=== PATIENT | male | born 1995 | race Caucasian/White ===

== ENCOUNTER → 2016-11-15 | Outpatient (CLI) | payer OTHER ==
[~2016-11-15] MED LIST: AMIT25TA PO; AMIT50TA PO; ATIV1TAB7 PO; BENT20TA PO; CARA1TAB2 PO; CO-E50CA PO; DEPA250C PO; DEPA250T2 PO; DICY20TA11 PO; DOXE25CA PO; IMIT6INJ SC; LORA1TAB12 PO; MAXA10TA15 PO; OMEP40CA2 PO; ONDA1TAB15 PO; ONDA4TAB6 PO; OXYC1TAB16 PO; PANT40TA2 PO; PARO20TA2 PO; PAXI20TA3 PO; PROM125TA PO; PROM25TA PR; PROTPAK PO; SERT-141 PO; SUCR1TA PO; SUCR1TAB56 PO; TOPI25TA5 PO; TYLE325T5 PO; ZOFR4TAB3 PO; ZONI50CA PO
--- NOTE | 2016-11-15 17:14 | REP ---
Soft-tissue ultrasound left forearm, nonvascular: History: Puncture wound. Evaluate for possible retained IV catheter. Foreign body. History of an IV at this site approximately 1 month ago in the left anterior forearm. Findings: Scanning at this site demonstrates a partially thrombosed segment of a superficial vein. This measures 19 mm in length by 2 mm in thickness. No abnormal fluid collection is seen. There is no evidence of retained intravenous catheter or other foreign body. Study is otherwise unremarkable. No other venous thrombosis is seen. Impression: There is a small cord of partially thrombosed superficial vein at the previous IV site in the ventral subcutaneous space. No evidence of retained catheter fragment or other foreign body seen sonographically. Signed by Isacc Blood MD 11/16/2016 08:15 A
== END ==
LOC: M RAD 12:39
PROVIDERS: ATTEND Physician Assistant
DX: S51.842S Puncture wound with foreign body of left forearm, sequela (principal); I82.612 Acute embolism and thrombosis of superficial veins of left upper extremity

== ENCOUNTER 2016-11-18 06:58 | Inpatient (IN) | payer OTHER ==
[~2016-11-18] VITALS: Ht 180.3 cm; Wt 71.4 kg
[~2016-11-18 06:58] MED LIST changes: -ONDA1TAB15 PO; -PAXI20TA3 PO; -SUCR1TAB56 PO
[2016-11-18] MEDS ORDERED: ONDANSETRON 4MG/2ML VIAL (J2405) As Ordered ONE (07:44)
[2016-11-18] MEDS ORDERED: MORPHINE 4 MG/ML 1ML SYRINGE As Ordered ONE ×3 (07:44→12:29)
[2016-11-18 07:53] LABS: BASO # 0.1 K/mm3 (0.0-0.2); EOS # 0.1 K/mm3 (0.0-0.50); EOS % 1.9 % (0.0-3.0); LARGE UNSTAINED CELL # 0.1 K/mm3 (0.0-0.4); LARGE UNSTAINED CELL % 1.5 % (0.0-4.0); LYMPH # 0.9 K/mm3 (1.5-6.5); LYMPH % 15.8 % (24.0-44.0); MEAN CORPUSCULAR HEMOGLOBIN 30.9 pg (27.0-33.0); MEAN CORPUSCULAR HGB CONC 34.1 g/dl (32.0-36.5); MEAN CORPUSCULAR VOLUME 90.6 fl (80.0-96.0); MONO # 0.3 K/mm3 (0.0-0.8); MONO % 5.6 % (0.0-5.0); NEUTROPHILS % 74.2 % (36.0-66.0); PLATELET COUNT, AUTOMATED 286 k/mm3 (150-450); RED CELL DISTRIBUTION WIDTH 13.1 % (11.5-14.5); WHITE BLOOD COUNT 5.4 K/mm3 (4.0-10.0)
[2016-11-18 08:17] LABS: ALBUMIN 4.4 GM/DL (3.2-5.2); ALBUMIN/GLOBULIN RATIO 1.22 (1.00-1.93); ALKALINE PHOSPHATASE 109 U/L (45-117); ALT/SGPT 24 U/L (12-78); ANION GAP 7 MEQ/L (8-16); AST/SGOT 10 U/L (15-37); BILIRUBIN,DIRECT 0.2 MG/DL (0.0-0.2); BILIRUBIN,TOTAL 0.8 MG/DL (0.2-1.0); BLOOD UREA NITROGEN 12 MG/DL (7-18); CALCIUM LEVEL 9.3 MG/DL (8.5-10.1); CARBON DIOXIDE LEVEL 29 MEQ/L (21-32); CHLORIDE LEVEL 104 MEQ/L (98-107); CREATININE FOR GFR 0.95 MG/DL (0.70-1.30); GLOMERULAR FILTRATION RATE > 60.0 (>60); GLUCOSE, FASTING 100 MG/DL (70-105); SODIUM LEVEL 140 MEQ/L (136-145)
[2016-11-18] MEDS ORDERED: GASTROGRAFIN SOLUTION 30ML (Q9963) As Ordered ONE (08:33)
--- NOTE | 2016-11-18 08:36 | REP ---
Portable chest x-ray: Single view. History: Chest pain. Comparison chest x-ray October 17, 2016. Findings: The lungs are symmetrically aerated and clear. Pleural angles are sharp. Heart size is normal. Pulmonary vasculature is not increased. Impression: Negative portable chest x-ray. Signed by Isacc Blood MD 11/18/2016 02:35 P
[2016-11-18] MEDS ORDERED: ISOVUE-370 76% 100ML VIAL (Q9967) As Ordered ONE (09:50)
[2016-11-18] MEDS ORDERED: ACETAMINOPHEN 325 MG TAB As Ordered ONE (10:23)
[2016-11-18] MEDS ORDERED: ACETAMINOPHEN 650 MG SUPP PR PRN (12:30)
[2016-11-18] MEDS ORDERED: PAXI20TA3 PO (13:06)
[2016-11-18] MEDS ORDERED: PANT40TA2 PO (13:06)
[2016-11-18] MEDS ORDERED: SUCR1TAB56 PO (13:06)
--- NOTE | 2016-11-18 14:15 | HPEPDOC ---
General Date of Admission Nov 18, 2016 at 12:28 Primary Care Physician: Mehran Reyna M.D. Attending Physician: IVAN NAGY MD Chief Complaint The patient is a 21-year-old male admitted with a reason for visit of Intractable Vomiting. History of Present Illness Patient of Dr. Reyna, who presents again with intractable nausea and vomiting. He reports vomiting, and inability to eat over the past week. He states that his symptoms to be worse at night. Mother is frustrated that they went to the [facility] to try to sort things out, and she states that they didn't do much of a workup. She is concerned that her son may have a mitochondrial disorder, as someone else in her neighborhood was diagnosed with this. She still thinks that this was related to toxic dumping by the air brake plant nearby. Patient denies fevers, chills, sweats, recent illness. Denies toxic ingestion. Patient also reports frequent headaches, which are bitemporal in nature. He states the only thing that has helped in the past is "Oxy, the 10 mg tablets, not the smaller ones. Those don't work." His headaches and abdominal pain had previously been treated with triptans, and amitriptyline. He states that neither of these were effective. Home Medications Scheduled Pantoprazole Sodium (Pantoprazole Sodium) 40 Mg Tab 40 MG PO BID (Reported) Paroxetine Hydrochloride (Paxil) 20 Mg Tab 20 MG PO QHS (Reported) Sucralfate (Sucralfate) 1 Gm Tab 1 GM PO TID (Reported) Scheduled PRN Lorazepam (Ativan) 1 Mg Tab 1 MG PO Q6HP PRN PRN ANXIETY/AGITATION (Reported) Promethazine HCl (Promethazine HCl) 25 Mg Tab 25 MG CA Q6HP PRN PRN NAUSEA ( Reported) Allergies Coded Allergies: Metoclopramide (Verified Adverse Reaction, Intermediate, AKATHISIA/ AGITATION, 08/29/16) Past Medical History Medical History 1. cyclic vomiting; frequent admissions with extensive workup 2. anxiety, depression 3. marijuana use Surgical History None Family History Significant Family History: No pertinent family hx Social History * Smoker: non-smoker Alcohol: denies Drugs: marijuana Recent Travel/Sick Contacts: Denies: Recent sick contacts, Recent travel Psychosocial History: Anxiety, Decreased mood, Depression Review of Symptoms Constitutional: Denies: Chills, Fever, Malaise, Night Sweats Eyes: Denies: Vision change ENT: Reports: Head Aches, Denies: Ear Pain, Sinus Congestion, Sore Throat Skin: Denies: Rash Pulmonary: Denies: Cough, Dyspnea Cardiovascular: Denies: Chest Pain, Lt Headedness, Palpitations Gastrointestinal: Reports: Abdominal Pain, Nausea, Vomiting, Denies: Constipation, Diarrhea Genitourinary: Denies: Dysuria, Frequency, Incontinence Hematologic: Denies: Bleeding Excessively, Bruising Neurological: Denies: Numbness, Weakness Psych: Reports: Anxiety, Depression Other systems 10 pt ROS otherwise negative Physical Examination General Exam: Positive: Alert, Cooperative, No Acute Distress Eye Exam: Positive: Conjunctiva & lids normal, EOMI, PERRLA, Negative: Sclera icteric ENT Exam: Positive: Atraumatic, Mucous membr. moist/pink, Pharynx Normal Neck Exam: Positive: Supple, Negative: Lymphadenopathy, thyromegaly Chest Exam: Positive: Clear to auscultation, Normal air movement, Negative: Rales, Rhonchi, Wheezing Heart Exam: Positive: Normal S1, Normal S2, Rate Normal, Negative: Murmurs, Rubs Abdomen Exam: Positive: Normal bowel sounds, Other (generalized tenderness without guarding or rebound), Soft, Negative: Hepatospenomegaly, Mass Extremity Exam: Negative: Cyanosis, Edema Skin Exam: Positive: Nl turgor and temperature, Negative: Rash Psych Exam: Positive: Mental status NL Vital Signs T 97.6, BP 134/74, P 80, RR 18, SAT 100% on RA Laboratory Data Labs 24H Laboratory Tests 2 11/18/16 07:41: Aspartate Amino Transf (AST/SGOT) 10L, Alanine Aminotransferase (ALT/SGPT) 24, Alkaline Phosphatase 109, Total Bilirubin 0.8, Direct Bilirubin 0.2, Albumin 4.4 , Albumin/Globulin Ratio 1.22, Anion Gap 7L, White Blood Count 5.4, Red Blood Count 5.22, Hemoglobin 16.1, Hematocrit 47.2, Mean Corpuscular Volume 90.6, Mean Corpuscular Hemoglobin 30.9, Mean Corpuscular Hemoglobin Concent 34.1, Red Cell Distribution Width 13.1, Platelet Count 286, Neutrophils (%) (Auto) 74.2H, Lymphocytes (%) (Auto) 15.8L, Monocytes (%) (Auto) 5.6H, Eosinophils (%) (Auto) 1.9, Basophils (%) (Auto) 1.0, Neutrophils # (Auto) 4.0, Lymphocytes # (Auto) 0.9L, Monocytes # (Auto) 0.3, Eosinophils # (Auto) 0.1, Basophils # (Auto) 0.1, Calcium Level 9.3, Glomerular Filtration Rate > 60.0, Large Unclassified Cells # 0.1, Large Unclassified Cells % 1.5, Lipase 104, Total Protein 8.0 CBC/BMP Laboratory Tests 11/18/16 07:41 Red Blood Count 5.22, Mean Corpuscular Volume 90.6, Mean Corpuscular Hemoglobin 30.9, Mean Corpuscular Hemoglobin Concent 34.1, Red Cell Distribution Width 13.1 , Neutrophils (%) (Auto) 74.2 H, Lymphocytes (%) (Auto) 15.8 L, Monocytes (%) ( Auto) 5.6 H, Eosinophils (%) (Auto) 1.9, Basophils (%) (Auto) 1.0, Neutrophils # (Auto) 4.0, Lymphocytes # (Auto) 0.9 L, Monocytes # (Auto) 0.3, Eosinophils # (Auto) 0.1, Basophils # (Auto) 0.1 (1) Intractable vomiting Permanent Comment: 03/21/16 EGD/[id number] with normal random biopsies of esophagus, stomach, duodenum (mildly increased lymphocytes but preserved architecture), ileum, colon Last Edited By: Mehran Reyna MD on May 12, 2016 16 :11 Status: Acute Assessment & Plan: Patient is a frequent admission. He has had extensive workup in the past, including lead, arsenic, mercury, porphyria, hepatitis, and H. pylori. He's been diagnosed by Dr. Mckeon with abdominal migraines. Recent EGD with Dr. Reece. He has also had workup demonstrating negative HIDA, negative gastric emptying study, negative for intracranial mass. In addition to these workups, he has had numerous other workups for other things. Given his history, I am concerned that he has a somatization disorder. Although his mother would like to look into a mitochondrial disorder or other toxicity, I explained that these are very unlikely, especially as he has not had problems until recently. Mother reports child had motion sickness and getting very nervous and vomiting after seeing the height of a roller coaster they were about to ride, but I tried to re-assure her that these are not indicators of serious disease. She would like to have me look into possible toxic exposure to materials near the local "air-brake dump site." No other family members report sx. I indicated that I would research this concern. - titrate paxil - avoid narcotics - IV fluids - PRN GI cocktail (2) Headache Status: Acute Assessment & Plan: Likely tension headache as pt has ARNULFO temporal pain. Does not seem c/w migraine headache. C/O photophobia but does not react during ophthal exam. Normal fundoscopic exam. - tylenol PRN - Do no offer narcotics (3) GERD (gastroesophageal reflux disease) Permanent Comment: Last Edited By: Mehran Reyna MD on May 12, 2016 16:11 Status: Chronic Assessment & Plan: IV PPI until pt able to take PO Plan / VTE VTE Prophylaxis Ordered?: Yes VTE Exclusion Pharmacological: At Low Risk for VTE Plan Plan Plan for D/C with frequent followup to PCP when able to tolerate diet IVAN NAGY MD Nov 18, 2016 14:15
[2016-11-18 14:45] VITALS: BP_SYST 148; BP_SYST 152; BP_DIAS 102; BP_DIAS 92
--- NOTE | 2016-11-18 14:46 | EDDOCDS ---
Nurse's Notes [facility] Name: Mynor Chambers Age: 21 yrs Sex: Male : 1995 Arrival Date: 11/18/2016 Time: 06:58 Bed 5 Private MD: Diagnosis: Epigastric pain;Nausea and vomiting Presentation: 11/18 07:04 Presenting complaint: Patient states: Vomiting since Monday, generalized abdominal, dwg chest and head pain. Adult Sepsis Screening: The patient does not have new or worsening altered mentation. Patient's respiratory rate is less than 22. Systolic blood pressure is greater than 100. Patient has a qSOFA score of 0- Negative Sepsis Screen. Suicide/Homicide risk assessment- the patient denies having any suicidal and/or homicidal ideations and does not present with any other emotional, behavioral or mental health complaints. Status: Patient is not a client services manager or dependent. Transition of care: patient was not received from another setting of care. 07:04 Acuity: DINAH Level 3 dwg 07:04 Method Of Arrival: Wheelchair [facility] Triage Assessment: 07:09 General: Appears in no apparent distress, uncomfortable. Pain: Pain currently is 10 out dwg of 10 on a pain scale. HIV screening NA for this visit Offered previously. Historical: - Allergies: no known allergies; - Home Meds: 1. sucralfate 1 gram Oral tab three times a day (Last dose: 11/17/2016 20:00) 2. Paxil 20 mg Oral tab 1 tab once daily (Last dose: 11/17/2016 20:00) 3. pantoprazole 40 mg oral TbEC 1 tab 2 times per day (Last dose: 11/17/2016 20:00) - PMHx: Anxiety; Cycling Vomiting Syndrome; GERD; ulcers; ''Rupture esophagus''; - PSHx: Fractured right hip; - Social history: Smoking status: Patient states was never smoker of tobacco. No barriers to communication noted, The patient speaks fluent Chinese. - Family history: Not pertinent. - : The pt / caregiver states he / she is not on anticoagulants. Home medication list is obtained from the patient. - Exposure Risk Screening:: None identified. Screenin:09 Screening information is obtained from the patient. Fall risk: No risks identified. srm Assistance ADL's: requires no assistance with activities of daily living. Abuse/DV Screen: The patient / caregiver reports he/she is: not in a situation that causes fear, pain or injury. Nutritional screening: No deficits noted. Advance Directives: There is no active DNR order. home support is adequate. Assessment: 07:20 General: mom states pt is having trouble breathing. pt crying on stretcher. color pink. srm hyperventilating chest clear all redding. BS+ all redding. soft. dr archuleta at bedside. 07:54 Pain: Pain currently is 10 out of 10 on a pain scale. GI: Abdomen is non- distended srm Bowel sounds present X 4 quads. Abd is soft X 4 quads Abd is tender to palpation X 4 quads. Derm: No deficits noted. 08:29 Pain: Pain currently is 9 out of 10 on a pain scale. Quality of pain is described as srm burning. 09:13 General: pt states his headache is worse than stomache at this time. pt is tolerating srm oral contrast. 10:10 Reassessment: Patient appears in no apparent distress at this time. requesting more srm pain meds. to CT at this time. 11:23 General: Appears resting on stretcher with eyes closed. arouses easily. vs stable. srm awaiting MD jessica zuniga. voices no c/o at this time. mom at bedside. 12:22 General: PTresting on stretcher talking with visitors. states headache is 10/10 and srm stomache is 7/10. requesting something more for pain. dr archuleta aware. vs stable . 12:38 General: Appears resting on stretcher laughing with visitors. BS+ c/o pain when srm auscultate abdomen. 14:08 General: Appears in no apparent distress, Behavior is appropriate for age, cooperative. srm Neurological: No deficits noted. EENT: No deficits noted. Cardiovascular: Rhythm is sinus rhythm. Respiratory: No deficits noted. GI: Abdomen is non- distended Bowel sounds present X 4 quads. Abd is soft X 4 quads Abd is tender to palpation X 4 quads. : No deficits noted. 14:34 Reassessment: Patient appears in no apparent distress at this time. srm Vital Signs: 07:09 BP 132 / 76; Pulse 96; Resp 20; Temp 98.5(T); Pulse Ox 98% on R/A; Weight 70.76 kg; dwg Height 5 ft. 11 in. (180.34 cm); Pain 10/10; 08:20 BP 124 / 69 (auto/); srm 08:21 Pulse 80 MON; Pulse Ox 99% ; srm 08:28 BP 124 / 69; Pulse 91; Resp 18; Pulse Ox 98% on R/A; Pain 9/10; srm 08:50 BP 126 / 83 (auto/); srm 08:51 Pulse 86 MON; Pulse Ox 99% ; srm 09:07 BP 126 / 83; Pulse 75; Resp 18; Pulse Ox 100% on R/A; srm 09:20 BP 134 / 79 (auto/); srm 09:21 Pulse 74 MON; Pulse Ox 99% ; srm 09:50 BP 130 / 73 (auto/); srm 09:51 Pulse 76 MON; Pulse Ox 99% ; srm 10:10 Pulse 76 MON; Resp 18; Pulse Ox 99% ; srm 10:19 BP 136 / 80 (auto/); srm 10:20 BP 134 / 78 (auto/); srm 10:21 Pulse 70 MON; Pulse Ox 99% ; srm 10:50 BP 123 / 67 (auto/); srm 10:51 Pulse 68 MON; Pulse Ox 97% ; srm 11:20 BP 121 / 68 (auto/); srm 11:21 Pulse 62 MON; Resp 18; Pulse Ox 96% ; srm 11:50 BP 125 / 75 (auto/); srm 11:51 Pulse 70 MON; Pulse Ox 99% ; srm 12:20 BP 130 / 74 (auto/); srm 12:21 Pulse 80 MON; Resp 18; Temp 97.6(O); Pulse Ox 100% ; srm 12:50 BP 136 / 74 (auto/); srm 12:51 Pulse 78 MON; Pulse Ox 100% ; srm 13:19 Pulse 88 MON; Pulse Ox 98% ; srm 13:20 BP 134 / 79 (auto/); srm 13:50 BP 144 / 85 (auto/); srm 13:51 Pulse 84 MON; Pulse Ox 99% ; srm 14:06 BP 134 / 74 (auto/); srm 14:07 Pulse 70 MON; Resp 18; Temp 99.3(TE); Pulse Ox 98% on R/A; srm 07:09 Body Mass Index 21.76 (70.76 kg, 180.34 cm) dwg Vitals: 07:09 Log In Time: November 18, 2016 at 07:00. [facility] ED Course: 06:59 Patient visited by Purvi Leonardo, Reg. hs2 06:59 Patient moved to Waiting hs2 07:07 Triage Initiated dwg 07:11 Patient moved to 5 dwg 07:18 Reynaldo Archuleta MD is Attending Physician. br1 07:26 Patient visited by Reynaldo Archuleta MD. br1 07:43 The patient / caregiver is instructed regarding the plan of care and ED course. Patient srm has correct armband on for positive identification. Placed in gown. Bed in low position. Call light in reach. Side rails up X 1. compliance monitor on. Pulse ox on. NIBP on. 07:43 Inserted saline lock: 20 gauge in right antecubital area and blood collected. srm 07:54 Patient visited by Radha Campos RN. srm 07:56 EKG done. (by ED staff). Reviewed by Reynaldo Archuleta MD. rn1 08:29 Patient visited by Radha Campos RN. srm 08:36 [facility] Payment Agreement was scanned into [employer] and attached to record. mm15 09:00 Chest, 1 View Returned. EDMS 09:07 Patient visited by Radha Campos RN. srm 09:13 Patient visited by Radha Campos RN. srm 10:11 Patient visited by Radha Campos RN. srm 10:[address] srm 10:21 Patient moved to 5 srm 10:24 Patient visited by Radha Campos RN. srm 10:36 Patient visited by Romelia Del Rio PCA. jb5 10:36 Warm blanket given. Pillow given. jb5 11:26 Patient visited by Radha Campos RN. srm 11:49 Patient visited by Reynaldo Archuleta MD. br1 12:24 Patient visited by Radha Campos RN. srm 12:38 Patient visited by Radha Campos RN. srm 12:46 Tirso Freeman MD is Hospitalizing Provider. br1 14:10 Patient visited by Radha Campos RN. srm 14:34 No procedures done that require assistance. srm Administered Medications: 07:48 Drug: Ondansetron 4 mg [ondansetron HCl 2 mg/mL intravenous solution (2 mL)] Route: srm IVP; Site: right antecubital; 08:29 Follow up: Response: Nausea is resolved srm 07:48 Drug: NS 0.9% 1000 ml [sodium chloride 0.9 % intravenous solution] Route: IV; Rate: 150 srm mL/hr; Site: right antecubital; 12:24 Follow up: IV Status: Completed infusion srm 07:49 Drug: morphine 4 mg [morphine 4 mg/mL intravenous cartridge (1 mL)] Route: IVP; Site: [facility] right antecubital; 08:28 Follow up: BP 124 / 69; Pulse 91 bpm; Resp 18 bpm; Pulse Ox 98% RA; Pain 9/10 Adult srm 08:26 Drug: morphine 4 mg [morphine 4 mg/mL intravenous cartridge (1 mL)] Route: IVP; Site: [facility] right antecubital; 09:07 Follow up: BP 126 / 83; Pulse 75 bpm; Resp 18 bpm; Pulse Ox 100% RA; headache 8/10 srm stomach pain 5/10 08:35 Drug: Diatrizoate Meglumine & Sodium 10 ml [diatrizoate meglumine and diat.sodium 66 srm %-10 % oral solution (10 mL)] Route: PO; 09:07 Drug: Diatrizoate Meglumine & Sodium 10 ml [diatrizoate meglumine and diat.sodium 66 srm %-10 % oral solution (10 mL)] Route: PO; 10:24 Drug: Acetaminophen 650 mg [acetaminophen 325 mg tablet (2 tabs)] Route: PO; srm 12:34 Drug: morphine 4 mg [morphine 4 mg/mL intravenous cartridge (1 mL)] Route: IVP; Site: [facility] right antecubital; Intake: 12:21 IV: 1000.00ml (NS); Total: 1000.00ml. srm Output: 12:21 Urine: 600.00ml (Voided); Total: 600.00ml. srm Order Results: Lab Order: CBC with Diff; SPEC'M 11/18/16 07:41 Test: WHITE BLOOD COUNT; Value: 5.4; Range: 4.0-10.0; Units: K/mm3; Status: F Test: RED BLOOD COUNT; Value: 5.22; Range: 4.30-6.10; Units: M/mm3; Status: F Test: HEMOGLOBIN; Value: 16.1; Range: 14.0-18.0; Units: g/dl; Status: F Test: HEMATOCRIT; Value: 47.2; Range: 42.0-52.0; Units: %; Status: F Test: MEAN CORPUSCULAR VOLUME; Value: 90.6; Range: 80.0-96.0; Units: fl; Status: F Test: MEAN CORPUSCULAR HEMOGLOBIN; Value: 30.9; Range: 27.0-33.0; Units: pg; Status: F Test: MEAN CORPUSCULAR HGB CONC; Value: 34.1; Range: 32.0-36.5; Units: g/dl; Status: F Test: RED CELL DISTRIBUTION WIDTH; Value: 13.1; Range: 11.5-14.5; Units: %; Status: F Test: PLATELET COUNT, AUTOMATED; Value: 286; Range: 150-450; Units: k/mm3; Status: F Test: NEUTROPHILS %; Value: 74.2; Range: 36.0-66.0; Abnormal: Above high normal; Units: %; Status: F Test: LYMPH %; Value: 15.8; Range: 24.0-44.0; Abnormal: Below low normal; Units: %; Status: F Test: MONO %; Value: 5.6; Range: 0.0-5.0; Abnormal: Above high normal; Units: %; Status: F Test: EOS %; Value: 1.9; Range: 0.0-3.0; Units: %; Status: F Test: BASO %; Value: 1.0; Range: 0.0-1.0; Units: %; Status: F Test: LARGE UNSTAINED CELL %; Value: 1.5; Range: 0.0-4.0; Units: %; Status: F Test: NEUTROPHILS #; Value: 4.0; Range: 1.8-7.7; Units: K/mm3; Status: F Test: LYMPH #; Value: 0.9; Range: 1.5-6.5; Abnormal: Below low normal; Units: K/mm3; Status: F Test: MONO #; Value: 0.3; Range: 0.0-0.8; Units: K/mm3; Status: F Test: EOS #; Value: 0.1; Range: 0.0-0.50; Units: K/mm3; Status: F Test: BASO #; Value: 0.1; Range: 0.0-0.2; Units: K/mm3; Status: F Test: LARGE UNSTAINED CELL #; Value: 0.1; Range: 0.0-0.4; Units: K/mm3; Status: F Lab Order: BMP; SPEC'M 11/18/16 07:41 Test: GLUCOSE, FASTING; Value: 100; Range: 70-105; Units: MG/DL; Status: F Test: BLOOD UREA NITROGEN; Value: 12; Range: 7-18; Units: MG/DL; Status: F Test: CREATININE FOR GFR; Value: 0.95; Range: 0.70-1.30; Units: MG/DL; Status: F Test: GLOMERULAR FILTRATION RATE; Value: > 60.0; Range: >60; Status: F Test: SODIUM LEVEL; Value: 140; Range: 136-145; Units: MEQ/L; Status: F Test: POTASSIUM SERUM; Value: 4.0; Range: 3.5-5.1; Units: MEQ/L; Status: F Test: CHLORIDE LEVEL; Value: 104; Range: 98-107; Units: MEQ/L; Status: F Test: CARBON DIOXIDE LEVEL; Value: 29; Range: 21-32; Units: MEQ/L; Status: F Test: ANION GAP; Value: 7; Range: 8-16; Abnormal: Below low normal; Units: MEQ/L; Status: F Test: CALCIUM LEVEL; Value: 9.3; Range: 8.5-10.1; Units: MG/DL; Status: F Test Note: ; Units are mL/min/1.73 m2 Chronic Kidney Disease Staging per NKF: Stage I & II GFR >=60 Normal to Mildly Decreased Stage III GFR 30-59 Moderately Decreased Stage IV GFR 15-29 Severely Decreased Stage V GFR <15 Very Little GFR Left ESRD GFR <15 on ADMISSIONS ASSISTANT Lab Order: Liver Profile; SPEC'M 11/18/16 07:41 Test: AST/SGOT; Value: 10; Range: 15-37; Abnormal: Below low normal; Units: U/L; Status: F Test: ALT/SGPT; Value: 24; Range: 12-78; Units: U/L; Status: F Test: ALKALINE PHOSPHATASE; Value: 109; Range: 45-117; Units: U/L; Status: F Test: BILIRUBIN,TOTAL; Value: 0.8; Range: 0.2-1.0; Units: MG/DL; Status: F Test: BILIRUBIN,DIRECT; Value: 0.2; Range: 0.0-0.2; Units: MG/DL; Status: F Test: TOTAL PROTEIN; Value: 8.0; Range: 6.4-8.2; Units: GM/DL; Status: F Test: ALBUMIN; Value: 4.4; Range: 3.2-5.2; Units: GM/DL; Status: F Test: ALBUMIN/GLOBULIN RATIO; Value: 1.22; Range: 1.00-1.93; Status: F Lab Order: Lipase; SPEC'M 11/18/16 07:41 Test: LIPASE; Value: 104; Range: 73-393; Units: U/L; Status: F Radiology Order: Chest, 1 View Test: Chest, 1 View REASON FOR EXAMINATION: Chest Pain; Portable chest x-ray: Single view.; ; History: Chest pain.; ; Comparison chest x-ray October 17, 2016.; ; Findings: The lungs are symmetrically aerated and clear. Pleural angles are; sharp. Heart size is normal. Pulmonary vasculature is not increased.; ; Impression:; ; Negative portable chest x-ray.; ; ; ; Unreviewed; Outcome: 12:46 Decision to Hospitalize by Provider. br1 14:34 Discharge Assessment: Patient awake, alert and oriented x 3. No cognitive and/or srm functional deficits noted. Patient verbalized understanding of disposition instructions. patient administered narcotics - yes. Patient was admitted to the hospital or transferred to another facility. The following High Risk Discharge criteria are identified: None. Admitted to Med/Surg accompanied by tech, via stretcher, with chart. Condition: good Condition: stable. CT Study completed. Property :Personal belongings accompany Pt. 14:45 Patient left the ED. srm Signatures: Dispatcher [employer] EDToi Carrillo RN RN dwg Michelson, Staci, RN RN srm Romelia Del Rio, NETWORK SUPPORT NETWORK SUPPORT jb5 Reynaldo Archuleta MD MD br1 Lisandro Jane mm15 Red Miller rn1 Purvi Leonardo, Reg Reg hs2 MTDD
--- NOTE | 2016-11-18 14:46 | EDDOCDS ---
Physician Documentation [facility] Name: Mynor Chambers Age: 21 yrs Sex: Male : 1995 Arrival Date: 11/18/2016 Time: 06:58 Bed 5 Private MD: Disposition: 11/18/16 12:46 Hospitalization ordered by Tirso Freeman for Inpatient Admission. Preliminary diagnosis are Epigastric pain, Nausea and vomiting. - Bed requested for 4 [place]. - Status is Inpatient Admission. srm - Condition is Stable. - Problem is new. - Symptoms are unchanged. Historical: - Allergies: no known allergies; - Home Meds: 1. sucralfate 1 gram Oral tab three times a day (Last dose: 11/17/2016 20:00) 2. Paxil 20 mg Oral tab 1 tab once daily (Last dose: 11/17/2016 20:00) 3. pantoprazole 40 mg oral TbEC 1 tab 2 times per day (Last dose: 11/17/2016 20:00) - PMHx: Anxiety; Cycling Vomiting Syndrome; GERD; ulcers; ''Rupture esophagus''; - PSHx: Fractured right hip; - Social history: Smoking status: Patient states was never smoker of tobacco. No barriers to communication noted, The patient speaks fluent [place]. - Family history: Not pertinent. - : The pt / caregiver states he / she is not on anticoagulants. Home medication list is obtained from the patient. - Exposure Risk Screening:: None identified. Vital Signs: 11/18 07:09 BP 132 / 76; Pulse 96; Resp 20; Temp 98.5(T); Pulse Ox 98% on R/A; Weight 70.76 kg / dwg 156 lbs; Height 5 ft. 11 in. (180.34 cm); Pain 10/10; 08:20 BP 124 / 69 (auto/); srm 08:21 Pulse 80 MON; Pulse Ox 99% ; srm 08:28 BP 124 / 69; Pulse 91; Resp 18; Pulse Ox 98% on R/A; Pain 9/10; srm 08:50 BP 126 / 83 (auto/); srm 08:51 Pulse 86 MON; Pulse Ox 99% ; srm 09:07 BP 126 / 83; Pulse 75; Resp 18; Pulse Ox 100% on R/A; srm 09:20 BP 134 / 79 (auto/); srm 09:21 Pulse 74 MON; Pulse Ox 99% ; srm 09:50 BP 130 / 73 (auto/); srm 09:51 Pulse 76 MON; Pulse Ox 99% ; srm 10:10 Pulse 76 MON; Resp 18; Pulse Ox 99% ; srm 10:19 BP 136 / 80 (auto/); srm 10:20 BP 134 / 78 (auto/); srm 10:21 Pulse 70 MON; Pulse Ox 99% ; srm 10:50 BP 123 / 67 (auto/); srm 10:51 Pulse 68 MON; Pulse Ox 97% ; srm 11:20 BP 121 / 68 (auto/); srm 11:21 Pulse 62 MON; Resp 18; Pulse Ox 96% ; srm 11:50 BP 125 / 75 (auto/); srm 11:51 Pulse 70 MON; Pulse Ox 99% ; srm 12:20 BP 130 / 74 (auto/); srm 12:21 Pulse 80 MON; Resp 18; Temp 97.6(O); Pulse Ox 100% ; srm 12:50 BP 136 / 74 (auto/); srm 12:51 Pulse 78 MON; Pulse Ox 100% ; srm 13:19 Pulse 88 MON; Pulse Ox 98% ; srm 13:20 BP 134 / 79 (auto/); srm 13:50 BP 144 / 85 (auto/); srm 13:51 Pulse 84 MON; Pulse Ox 99% ; srm 14:06 BP 134 / 74 (auto/); srm 14:07 Pulse 70 MON; Resp 18; Temp 99.3(TE); Pulse Ox 98% on R/A; srm 07:09 Body Mass Index 21.76 (70.76 kg, 180.34 cm) dwg MDM: 07:27 IV Saline Lock ordered. br1 07:27 Cardiac Rehabilitation Specialist/Pulse Ox/q 30 min VS ordered. br1 07:27 CBC with Diff Ordered. EDMS 07:27 BMP Ordered. EDMS 07:27 Liver Profile Ordered. EDMS 07:27 Lipase Ordered. EDMS 07:28 morphine 4 mg IVP once ordered. br1 07:28 Ondansetron 4 mg IVP once ordered. br1 07:28 NS 0.9% 1000 ml IV at 150 mL/hr continuous ordered. br1 07:28 Chest, 1 View Ordered. EDMS 07:28 Undress patient ordered. br1 07:28 ECG WITH READING ER PHYS+CARDIAG ordered. EDMS 07:32 GASTROINTESTINAL (GI) PANEL Ordered. EDMS 07:43 CT Chest Angio R/O PE Ordered. EDMS 07:43 CT ABD & PELVIS: IV and Oral Contrast Ordered. EDMS 07:56 Financial registration complete. mm15 08:24 morphine 4 mg IVP once ordered. br1 08:24 CBC with Diff Reviewed. br1 08:24 BMP Reviewed. br1 08:24 Liver Profile Reviewed. br1 08:24 Lipase Reviewed. br1 08:36 [facility] Payment Agreement was scanned into [employer] and attached to record. mm15 08:37 Diatrizoate Meglumine & Sodium Liquid 10 ml PO once; mix in 290cc of water at 0830 srm ordered. 08:37 Diatrizoate Meglumine & Sodium Liquid 10 ml PO once; mix in 290cc of water at 0900 srm ordered. 10:21 Acetaminophen Tablet 650 mg PO once; prn headache ordered. br1 12:28 morphine 4 mg IVP once ordered. br1 12:33 Admission / Observation Status ordered. EDMS 12:33 REGULAR DIET ordered. EDMS 12:48 BED REQUEST+ADM ordered. EDMS Administered Medications: 07:48 Drug: Ondansetron 4 mg [ondansetron HCl 2 mg/mL intravenous solution (2 mL)] Route: srm IVP; Site: right antecubital; 08:29 Follow up: Response: Nausea is resolved srm 07:48 Drug: NS 0.9% 1000 ml [sodium chloride 0.9 % intravenous solution] Route: IV; Rate: 150 srm mL/hr; Site: right antecubital; 12:24 Follow up: IV Status: Completed infusion srm 07:49 Drug: morphine 4 mg [morphine 4 mg/mL intravenous cartridge (1 mL)] Route: IVP; Site: [facility] right antecubital; 08:28 Follow up: BP 124 / 69; Pulse 91 bpm; Resp 18 bpm; Pulse Ox 98% RA; Pain 9/10 Adult srm 08:26 Drug: morphine 4 mg [morphine 4 mg/mL intravenous cartridge (1 mL)] Route: IVP; Site: [facility] right antecubital; 09:07 Follow up: BP 126 / 83; Pulse 75 bpm; Resp 18 bpm; Pulse Ox 100% RA; headache 8/10 srm stomach pain 5/10 08:35 Drug: Diatrizoate Meglumine & Sodium 10 ml [diatrizoate meglumine and diat.sodium 66 srm %-10 % oral solution (10 mL)] Route: PO; 09:07 Drug: Diatrizoate Meglumine & Sodium 10 ml [diatrizoate meglumine and diat.sodium 66 srm %-10 % oral solution (10 mL)] Route: PO; 10:24 Drug: Acetaminophen 650 mg [acetaminophen 325 mg tablet (2 tabs)] Route: PO; srm 12:34 Drug: morphine 4 mg [morphine 4 mg/mL intravenous cartridge (1 mL)] Route: IVP; Site: [facility] right antecubital; Signatures: Dispatcher [employer] EDMS Toi Parikh RN RN dwg Michelson, Staci, RN RN [facility] Reynaldo Tovar MD MD br1 Lisandro Jane mm15 Efrain Foster RN RN sa The chart was reviewed and I authenticate all verbal orders and agree with the evaluation and treatment provided.Corrections: (The following items were deleted from the chart) 07:32 07:30 GASTROINTESTINAL (GI) PANEL+RANJANA ordered. EDMS EDMS Attachments: 08:36 [facility] Payment Agreement mm15 MTDD
[2016-11-18] MEDS: NS 1,000 ML IV SCH ×3 (15:14→23:44)
[2016-11-18] MEDS: ONDANSETRON 4 MG TAB (S0181) PO PRN (15:14)
[2016-11-18] MEDS ORDERED: NORCO, ANEXSIA 5/325MG TABLET (HYDROcodone/ACETAMINOPHEN) PO PRN (15:30)
--- NOTE | 2016-11-18 15:36 | REP ---
CTA chest and 20 Indication: Chest pain, shortness of breath; history of cyclical vomiting syndrome history of ruptured esophagus Comparison: CT chest with IV contrast 24 16 Technique: Following dynamic IV contrast administration 100 ml Isovue 370 mg/ml IV, mm contiguous spiral axial sections were then performed through the chest. Findings: The thoracic aorta is without aneurysm or dissection visualized. There is however some motion artifact within the ascending thoracic aorta. The heart is of normal size. There are no pathologically enlarged mediastinal or hilar nodes. There are no visualized pulmonary artery filling defects or findings to suggest pulmonary artery emboli. The lungs are clear bilaterally. There is no evidence of residual or recurrent pneumomediastinum. Impression: No evidence of pulmonary embolus Thoracic aorta without aneurysm or visualized dissection. There is some motion artifact with and streak artifact in the ascending thoracic aorta. Lungs are clear bilaterally Signed by Aurea Sandoval MD 11/18/2016 03:28 P
--- NOTE | 2016-11-18 15:38 | REP ---
CT abdomen pelvis 11/18/2016 Indication: Trauma pain Comparison : CT chest with IV contrast 08/22/2016, chest radiograph 11/18/2016 and 11/17/15 Technique: After drinking two cups of oral contrast, each containing 10 ml gastrographin in 290 ml water, 100 ml Isovue 370 mg/ml IV was subsequently injected. 3 mm spiral axial sections were performed through the abdomen and pelvis. Findings: Lung bases are clear bilaterally. Liver is without focal lesion. Spleen is also normal. Pancreas unremarkable. Gallbladder is generous in size, without wall thickening intraluminal stones or visualized biliary dilatation. The adrenal glands are normal. Kidneys are without hydronephrosis or obstructing ureteral calculi bilaterally. There are no intrarenal masses or cysts. Circumferential mural thickening is seen at gastroesophageal junction. Stomach and small bowel are within normal limits. The appendix is incompletely visualized yet there are no inflammatory changes identified in right lower quadrant. Abdominal aorta is of normal course and caliber. There are no pathologically enlarged retroperitoneal nodes. Bladder is contracted. There is some under distension within the splenic flexure and in the sigmoid colon. There is no free air or ascites. Bones and soft tissues within normal limits. Impression: Mild circumferential mural thickening is noted at gastroesophageal junction. Patient had history of previous ruptured distal esophagus. There is no free air or ascites. No no evidence of bowel obstruction No free intraperitoneal air or ascites . Signed by Aurea Sandoval MD 11/18/2016 03:30 P
[2016-11-18] MEDS: ACETAMINOPHEN TAB 650MG DOSE (2X325MG) PO PRN (15:52)
[2016-11-18] MEDS ORDERED: MORPHINE 2 MG/ML 1ML SYRINGE IV ONE (16:00)
[2016-11-18] MEDS: PROMETHAZINE INJ 25 MG/ML VIAL (J2550) IV PRN (18:47)
[2016-11-18] MEDS ORDERED: GI COCKTAIL 50ML BTL(HYOSCYAMINE/MAALOX/LIDOCAINE VISCOUS)(1:3:1) PO PRN (19:30)
[2016-11-18 22:00] VITALS: BP 127/64
[2016-11-18 23:10] VITALS: BP 130/80
[2016-11-19] MEDS: ACETAMINOPHEN TAB 650MG DOSE (2X325MG) PO PRN ×3 (00:02→19:48)
[2016-11-19] MEDS: ONDANSETRON 4 MG TAB (S0181) PO PRN ×3 (00:02→19:49)
[2016-11-19] MEDS: PROMETHAZINE INJ 25 MG/ML VIAL (J2550) IV PRN ×3 (01:07→22:54)
[2016-11-19] MEDS: NS 1,000 ML IV SCH ×3 (05:50→19:51)
[2016-11-19 07:00] LABS: BASO % 0.4 % (0.0-1.0); EOS # 0.1 K/mm3 (0.0-0.50); EOS % 2.5 % (0.0-3.0); LARGE UNSTAINED CELL # 0.1 K/mm3 (0.0-0.4); LARGE UNSTAINED CELL % 2.1 % (0.0-4.0); LYMPH # 0.9 K/mm3 (1.5-6.5); LYMPH % 18.7 % (24.0-44.0); MEAN CORPUSCULAR HEMOGLOBIN 30.8 pg (27.0-33.0); MEAN CORPUSCULAR HGB CONC 34.3 g/dl (32.0-36.5); MONO # 0.3 K/mm3 (0.0-0.8); NEUTROPHILS # 3.5 K/mm3 (1.8-7.7); NEUTROPHILS % 70.3 % (36.0-66.0); PLATELET COUNT, AUTOMATED 263 k/mm3 (150-450); RED CELL DISTRIBUTION WIDTH 12.4 % (11.5-14.5)
[2016-11-19 07:21] LABS: ANION GAP 7 MEQ/L (8-16); BLOOD UREA NITROGEN 8 MG/DL (7-18); CALCIUM LEVEL 8.3 MG/DL (8.5-10.1); CARBON DIOXIDE LEVEL 29 MEQ/L (21-32); CHLORIDE LEVEL 107 MEQ/L (98-107); CREATININE FOR GFR 0.84 MG/DL (0.70-1.30); GLOMERULAR FILTRATION RATE > 60.0 (>60); GLUCOSE, FASTING 78 MG/DL (70-105); SODIUM LEVEL 143 MEQ/L (136-145)
[2016-11-19 08:00] VITALS: BP 139/86
--- NOTE | 2016-11-19 08:05 | ECGEPIP ---
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
[2016-11-19] MEDS: PARoxetine 25 MG CR TAB (PAXIL CR) PO SCH (09:27)
[2016-11-19] MEDS: PANTOPRAZOLE 40MG TAB (PROTONIX) PO SCH (09:27)
--- NOTE | 2016-11-19 12:43 | IPNPDOC ---
Assessment/Plan Date Seen The patient was seen on 11/19/16. Problems Problems: (1) Intractable vomiting Permanent Comment: 03/21/16 EGD/fmlwd-Imxzfo-owyzvs with normal random biopsies of esophagus, stomach, duodenum (mildly increased lymphocytes but preserved architecture), ileum, colon 08/22/16 normal serum lactate 09/2016 [facility] multi-discipline admission (GI/Neurology/Psychiatry) felt diagnosis of: chronic migraine, moderate MDD +/- cannabanoid hyperemesis syndrome-recommended doxepin/topirimate titration, psychotherapy, NO NARCOTICS, t/c Marinol 10/18/16 normal serum lead, arsenic, mercury levels 11/18/16 CTA chest - PE 11/18/16 CT AP NAD Last Edited By: Mehran Reyna MD on Nov 19, 2016 15:29 Status: Acute Problem Text: 11/19/16 only medication that has helped to keep patient is THC-patient feels he needs ~0.5 gm QD to be symptom-free. He has had life-threatening complications of his severe recurrent vomiting. Will d/w Dr. Piedra re medical THC to be dispensed by her or one of her GI colleagues ([facility] s coverage, but changing to [employer]). [facility] legal limit for 30 day supply is 5 rv=640 0.5 gm cigs=10 cigs qd. Obviously would favor starting at 0.5 qd and obviously would continue workup for other cause. Tadeo to do outpatient SB enteroscopy in 2W. -continue paroxetine-admits has reduced anxiety - IV fluids - PRN GI cocktail/anti-emetics (2) Headache Status: Acute Problem Text: favor baseline migraine c abdominal component Likely tension headache as pt has ARNULFO temporal pain. Does not seem c/w migraine headache. C/O photophobia but does not react during ophthal exam. Normal fundoscopic exam. - tylenol PRN (3) GERD (gastroesophageal reflux disease) Permanent Comment: Last Edited By: Mehran Reyna MD on May 12, 2016 16:11 Status: Chronic Problem Text: IV PPI until pt able to take PO Plan / VTE VTE Prophylaxis Ordered?: Yes VTE Exclusion Pharmacological: At Low Risk for VTE Subjective Review of Systems CC/HPI The patient is a 21-year-old male admitted with a reason for visit of Intractable Vomiting. Events since last encounter States 4-5 day hx of vomiting with diarrhea. Use cannabis just prior to coming to hospital. States it helped him to be able to get into the hospital. c/o midepigastric pain. Unable to tolerate food. IVF running at 150 cc per hour Constitutional: Reports: Fatigue, Malaise, Weakness, Denies: Chills, Fever, Night Sweats ENT: Reports: Head Aches, Denies: Dysphagia, Ear Pain Pulmonary: Denies: Cough, Dyspnea Cardiovascular: Denies: Chest Pain, Lt Headedness, Orthopnea, Palpitations, Paroxysmal Noc. Dyspnea Gastrointestinal: Reports: Abdominal Pain, Diarrhea, Nausea, Vomiting Genitourinary: Denies: Dysuria, Frequency, Incontinence, Retention Psych: Reports: Mood Normal, Denies: Depression, Memory Issues Objective Physical Examination General Exam: Positive: Alert, Cooperative, No Acute Distress Eye Exam: Positive: Conjunctiva & lids normal, EOMI, PERRLA ENT Exam: Positive: Atraumatic, Mucous membr. moist/pink, Pharynx Normal Neck Exam: Positive: Supple Chest Exam: Positive: Clear to auscultation, Normal air movement Heart Exam: Positive: Normal S1, Normal S2, Rate Normal Abdomen Exam: Positive: Normal bowel sounds, Other (midepigastric tenderness), Soft Extremity Exam: Negative: Cyanosis, Edema Skin Exam: Positive: Nl turgor and temperature Psych Exam: Positive: Mental status NL Vital Signs/I&O Vital Signs Date Time Temp Pulse Resp B/P Pulse Ox O2 Delivery O2 Flow Rate FiO2 11/19/16 08:00 97.2 93 18 139/86 99 Room Air I&O- Last 24 Hours up to 6 AM 11/19/16 06:00 Intake Total 2340 ml Output Total 375 ml Balance 1965 ml Laboratory Data Labs 24H Laboratory Tests 2 11/19/16 06:08: Anion Gap 7L, White Blood Count 5.0, Red Blood Count 4.63, Hemoglobin 14.3, Hematocrit 41.7L, Mean Corpuscular Volume 90.0, Mean Corpuscular Hemoglobin 30.8 , Mean Corpuscular Hemoglobin Concent 34.3, Red Cell Distribution Width 12.4, Platelet Count 263, Neutrophils (%) (Auto) 70.3H, Lymphocytes (%) (Auto) 18.7L, Monocytes (%) (Auto) 6.0H, Eosinophils (%) (Auto) 2.5, Basophils (%) (Auto) 0.4 , Neutrophils # (Auto) 3.5, Lymphocytes # (Auto) 0.9L, Monocytes # (Auto) 0.3, Eosinophils # (Auto) 0.1, Basophils # (Auto) 0.0, Blood Urea Nitrogen 8, Creatinine 0.84, Sodium Level 143, Potassium Level 4.0, Chloride Level 107, Carbon Dioxide Level 29, Calcium Level 8.3L, Glomerular Filtration Rate > 60.0, Large Unclassified Cells # 0.1, Large Unclassified Cells % 2.1 CBC/BMP Laboratory Tests 11/19/16 06:08 Calcium Level 8.3 L, Red Blood Count 4.63, Mean Corpuscular Volume 90.0, Mean Corpuscular Hemoglobin 30.8, Mean Corpuscular Hemoglobin Concent 34.3, Red Cell Distribution Width 12.4, Neutrophils (%) (Auto) 70.3 H, Lymphocytes (%) (Auto) 18.7 L, Monocytes (%) (Auto) 6.0 H, Eosinophils (%) (Auto) 2.5, Basophils (%) ( Auto) 0.4, Neutrophils # (Auto) 3.5, Lymphocytes # (Auto) 0.9 L, Monocytes # ( Auto) 0.3, Eosinophils # (Auto) 0.1, Basophils # (Auto) 0.0 Lilly Youngblood Nov 19, 2016 12:43 Mehran Reyna M.D. Nov 19, 2016 15:28 Lilly YoungbloodP Nov 19, 2016 12:43 Mehran Reyna M.D. Nov 19, 2016 15:28
[2016-11-19 16:00] VITALS: BP 135/84
[2016-11-19 20:00] VITALS: BP 140/90
[2016-11-20] MEDS: NS 1,000 ML IV SCH ×3 (02:27→19:30)
[2016-11-20 04:00] VITALS: BP 134/75
[2016-11-20 08:00] VITALS: BP 137/87
[2016-11-20] MEDS: PARoxetine 25 MG CR TAB (PAXIL CR) PO SCH (08:42)
[2016-11-20] MEDS: PANTOPRAZOLE 40MG TAB (PROTONIX) PO SCH (08:42)
[2016-11-20] MEDS: ONDANSETRON 4 MG TAB (S0181) PO PRN ×2 (08:43→16:51)
[2016-11-20] MEDS: ACETAMINOPHEN TAB 650MG DOSE (2X325MG) PO PRN ×2 (08:43→16:51)
--- NOTE | 2016-11-20 14:13 | IPNPDOC ---
Assessment/Plan Date Seen The patient was seen on 11/20/16. Problems Problems: (1) Intractable vomiting Permanent Comment: 03/21/16 EGD/uysnu-Tqrrzr-wnohuf with normal random biopsies of esophagus, stomach, duodenum (mildly increased lymphocytes but preserved architecture), ileum, colon 02/2016 normal MRCP 02/2016 normal GES T1/2 70 minutes 04/2016 normal MRI brain 04/2016 normal HIDA c gb EF 53% 08/22/16 normal serum lactate 09/2016 [facility] multi-discipline admission (GI/Neurology/Psychiatry) felt diagnosis of: chronic migraine, moderate MDD +/- cannabanoid hyperemesis syndrome-recommended doxepin/topirimate titration, psychotherapy, NO NARCOTICS, t/c Marinol 10/18/16 normal serum lead, arsenic, mercury levels 11/18/16 CTA chest - PE 11/18/16 CT AP NAD Last Edited By: Mehran Reyna MD on Nov 20, 2016 14:01 Status: Acute Problem Text: 11/19/16 only medication that has helped to keep patient is THC-patient feels he needs ~0.5 gm QD to be symptom-free. He has had life-threatening complications of his severe recurrent vomiting. Will d/w Dr. Piedra re medical THC to be dispensed by her or one of her GI colleagues ([facility] s coverage, but changing to [employer]). [facility] legal limit for 30 day supply is 5 nj=265 0.5 gm cigs (only non- smokable form available in [facility]) Obviously would favor starting at 0.5 qd and obviously would continue workup for other cause. Tadeo to do outpatient SB enteroscopy in 2W. 11/20/16 closest medical marijuana practitioner is Dr. Ryan Ang [facility] in [facility] (none in [facility])-will ask PFS to arrange outpatient f/u c Dr. Ang to consider candidacy -continue paroxetine-admits has reduced anxiety - IV fluids - PRN GI cocktail/anti-emetics (2) Headache Status: Acute Problem Text: favor baseline migraine c abdominal component Likely tension headache as pt has ARNULFO temporal pain. Does not seem c/w migraine headache. C/O photophobia but does not react during ophthal exam. Normal fundoscopic exam. - tylenol PRN (3) GERD (gastroesophageal reflux disease) Permanent Comment: Last Edited By: Mehran Reyna MD on May 12, 2016 16:11 Status: Chronic Problem Text: IV PPI until pt able to take PO (4) Cannabinoid hyperemesis syndrome Status: Chronic Response to Treatment: Stable Problem Text: treatment as per intractable vomiting (5) Esophageal perforation Permanent Comment: occured 07/2016-treated medically by Dr. Graves Last Edited By: Mehran Reyna MD on Nov 20, 2016 14:13 Status: Resolved Response to Treatment: Stable Problem Text: No recurrent symptoms Plan / VTE VTE Prophylaxis Ordered?: Yes VTE Exclusion Pharmacological: At Low Risk for VTE Subjective Review of Systems CC/HPI The patient is a 21-year-old male admitted with a reason for visit of Intractable Vomiting. Objective Physical Examination General Exam: Positive: Alert, Cooperative, No Acute Distress Eye Exam: Positive: Conjunctiva & lids normal, EOMI, PERRLA ENT Exam: Positive: Atraumatic, Mucous membr. moist/pink, Pharynx Normal Neck Exam: Positive: Supple Chest Exam: Positive: Clear to auscultation, Normal air movement Heart Exam: Positive: Normal S1, Normal S2, Rate Normal Abdomen Exam: Positive: Normal bowel sounds, Other (midepigastric tenderness), Soft Extremity Exam: Negative: Cyanosis, Edema Skin Exam: Positive: Nl turgor and temperature Psych Exam: Positive: Mental status NL Vital Signs/I&O Vital Signs Date Time Temp Pulse Resp B/P Pulse Ox O2 Delivery O2 Flow Rate FiO2 11/20/16 08:00 97.1 76 18 137/87 99 Room Air I&O- Last 24 Hours up to 6 AM 11/20/16 06:00 Intake Total 4320 ml Output Total 2500 ml Balance 1820 ml Mehran Reyna M.D. Nov 20, 2016 14:13
--- NOTE | 2016-11-20 15:46 | EDDOCDS ---
Nurse's Notes [facility] Name: Mynor Chambers Age: 21 yrs Sex: Male : 1995 Arrival Date: 11/18/2016 Time: 06:58 Bed 5 Private MD: Diagnosis: Epigastric pain;Nausea and vomiting Presentation: 11/18 07:04 Presenting complaint: Patient states: Vomiting since Monday, generalized abdominal, dwg chest and head pain. Adult Sepsis Screening: The patient does not have new or worsening altered mentation. Patient's respiratory rate is less than 22. Systolic blood pressure is greater than 100. Patient has a qSOFA score of 0- Negative Sepsis Screen. Suicide/Homicide risk assessment- the patient denies having any suicidal and/or homicidal ideations and does not present with any other emotional, behavioral or mental health complaints. Status: Patient is not a service counselor or dependent. Transition of care: patient was not received from another setting of care. 07:04 Acuity: DINAH Level 3 dwg 07:04 Method Of Arrival: Wheelchair [facility] Triage Assessment: 07:09 General: Appears in no apparent distress, uncomfortable. Pain: Pain currently is 10 out dwg of 10 on a pain scale. HIV screening NA for this visit Offered previously. Historical: - Allergies: no known allergies; - Home Meds: 1. sucralfate 1 gram Oral tab three times a day (Last dose: 11/17/2016 20:00) 2. Paxil 20 mg Oral tab 1 tab once daily (Last dose: 11/17/2016 20:00) 3. pantoprazole 40 mg oral TbEC 1 tab 2 times per day (Last dose: 11/17/2016 20:00) - PMHx: Anxiety; Cycling Vomiting Syndrome; GERD; ulcers; ''Rupture esophagus''; - PSHx: Fractured right hip; - Social history: Smoking status: Patient states was never smoker of tobacco. No barriers to communication noted, The patient speaks fluent Korean. - Family history: Not pertinent. - : The pt / caregiver states he / she is not on anticoagulants. Home medication list is obtained from the patient. - Exposure Risk Screening:: None identified. Screenin:09 Screening information is obtained from the patient. Fall risk: No risks identified. srm Assistance ADL's: requires no assistance with activities of daily living. Abuse/DV Screen: The patient / caregiver reports he/she is: not in a situation that causes fear, pain or injury. Nutritional screening: No deficits noted. Advance Directives: There is no active DNR order. home support is adequate. Assessment: 07:20 General: mom states pt is having trouble breathing. pt crying on stretcher. color pink. srm hyperventilating chest clear all redding. BS+ all redding. soft. dr archuleta at bedside. 07:54 Pain: Pain currently is 10 out of 10 on a pain scale. GI: Abdomen is non- distended srm Bowel sounds present X 4 quads. Abd is soft X 4 quads Abd is tender to palpation X 4 quads. Derm: No deficits noted. 08:29 Pain: Pain currently is 9 out of 10 on a pain scale. Quality of pain is described as srm burning. 09:13 General: pt states his headache is worse than stomache at this time. pt is tolerating srm oral contrast. 10:10 Reassessment: Patient appears in no apparent distress at this time. requesting more srm pain meds. to CT at this time. 11:23 General: Appears resting on stretcher with eyes closed. arouses easily. vs stable. srm awaiting MD jessica zuniga. voices no c/o at this time. mom at bedside. 12:22 General: PTresting on stretcher talking with visitors. states headache is 10/10 and srm stomache is 7/10. requesting something more for pain. dr archuleta aware. vs stable . 12:38 General: Appears resting on stretcher laughing with visitors. BS+ c/o pain when srm auscultate abdomen. 14:08 General: Appears in no apparent distress, Behavior is appropriate for age, cooperative. srm Neurological: No deficits noted. EENT: No deficits noted. Cardiovascular: Rhythm is sinus rhythm. Respiratory: No deficits noted. GI: Abdomen is non- distended Bowel sounds present X 4 quads. Abd is soft X 4 quads Abd is tender to palpation X 4 quads. : No deficits noted. 14:34 Reassessment: Patient appears in no apparent distress at this time. srm Vital Signs: 07:09 BP 132 / 76; Pulse 96; Resp 20; Temp 98.5(T); Pulse Ox 98% on R/A; Weight 70.76 kg; dwg Height 5 ft. 11 in. (180.34 cm); Pain 10/10; 08:20 BP 124 / 69 (auto/); srm 08:21 Pulse 80 MON; Pulse Ox 99% ; srm 08:28 BP 124 / 69; Pulse 91; Resp 18; Pulse Ox 98% on R/A; Pain 9/10; srm 08:50 BP 126 / 83 (auto/); srm 08:51 Pulse 86 MON; Pulse Ox 99% ; srm 09:07 BP 126 / 83; Pulse 75; Resp 18; Pulse Ox 100% on R/A; srm 09:20 BP 134 / 79 (auto/); srm 09:21 Pulse 74 MON; Pulse Ox 99% ; srm 09:50 BP 130 / 73 (auto/); srm 09:51 Pulse 76 MON; Pulse Ox 99% ; srm 10:10 Pulse 76 MON; Resp 18; Pulse Ox 99% ; srm 10:19 BP 136 / 80 (auto/); srm 10:20 BP 134 / 78 (auto/); srm 10:21 Pulse 70 MON; Pulse Ox 99% ; srm 10:50 BP 123 / 67 (auto/); srm 10:51 Pulse 68 MON; Pulse Ox 97% ; srm 11:20 BP 121 / 68 (auto/); srm 11:21 Pulse 62 MON; Resp 18; Pulse Ox 96% ; srm 11:50 BP 125 / 75 (auto/); srm 11:51 Pulse 70 MON; Pulse Ox 99% ; srm 12:20 BP 130 / 74 (auto/); srm 12:21 Pulse 80 MON; Resp 18; Temp 97.6(O); Pulse Ox 100% ; srm 12:50 BP 136 / 74 (auto/); srm 12:51 Pulse 78 MON; Pulse Ox 100% ; srm 13:19 Pulse 88 MON; Pulse Ox 98% ; srm 13:20 BP 134 / 79 (auto/); srm 13:50 BP 144 / 85 (auto/); srm 13:51 Pulse 84 MON; Pulse Ox 99% ; srm 14:06 BP 134 / 74 (auto/); srm 14:07 Pulse 70 MON; Resp 18; Temp 99.3(TE); Pulse Ox 98% on R/A; srm 07:09 Body Mass Index 21.76 (70.76 kg, 180.34 cm) dwg Vitals: 07:09 Log In Time: November 18, 2016 at 07:00. [facility] ED Course: 06:59 Patient visited by Purvi Leonardo, Reg. hs2 06:59 Patient moved to Waiting hs2 07:07 Triage Initiated dwg 07:11 Patient moved to 5 dwg 07:18 Reynaldo Archuleta MD is Attending Physician. br1 07:26 Patient visited by Reynaldo Archuleta MD. br1 07:43 The patient / caregiver is instructed regarding the plan of care and ED course. Patient srm has correct armband on for positive identification. Placed in gown. Bed in low position. Call light in reach. Side rails up X 1. manager motor on. Pulse ox on. NIBP on. 07:43 Inserted saline lock: 20 gauge in right antecubital area and blood collected. srm 07:54 Patient visited by Radha Campos RN. srm 07:56 EKG done. (by ED staff). Reviewed by Reynaldo Archuleta MD. rn1 08:29 Patient visited by Radha Campos RN. srm 08:36 [facility] Payment Agreement was scanned into [employer] and attached to record. mm15 09:00 Chest, 1 View Returned. EDMS 09:07 Patient visited by Radha Campos RN. srm 09:13 Patient visited by aRdha Campos RN. srm 10:11 Patient visited by Radha Campos RN. srm 10:[address] srm 10:21 Patient moved to 5 srm 10:24 Patient visited by Radha Campos RN. srm 10:36 Patient visited by Romelia Del Rio PCA. jb5 10:36 Warm blanket given. Pillow given. jb5 11:26 Patient visited by Radha Campos RN. srm 11:49 Patient visited by Reynaldo Archuleta MD. br1 12:24 Patient visited by Radha Campos RN. srm 12:38 Patient visited by Radha Campos RN. srm 12:46 Tirso Freeman MD is Hospitalizing Provider. br1 14:10 Patient visited by Radha Campos RN. srm 14:34 No procedures done that require assistance. srm 15:14 T-Sheet-- Draft Copy was scanned into [employer] and attached to record. gb 11/19 12:09 ECG/EKG was scanned into [employer] and attached to record. 12:09 Trend VS was scanned into [employer] and attached to record. gb Administered Medications: 11/18 07:48 Drug: Ondansetron 4 mg [ondansetron HCl 2 mg/mL intravenous solution (2 mL)] Route: srm IVP; Site: right antecubital; 08:29 Follow up: Response: Nausea is resolved srm 07:48 Drug: NS 0.9% 1000 ml [sodium chloride 0.9 % intravenous solution] Route: IV; Rate: 150 srm mL/hr; Site: right antecubital; 12:24 Follow up: IV Status: Completed infusion srm 07:49 Drug: morphine 4 mg [morphine 4 mg/mL intravenous cartridge (1 mL)] Route: IVP; Site: [facility] right antecubital; 08:28 Follow up: BP 124 / 69; Pulse 91 bpm; Resp 18 bpm; Pulse Ox 98% RA; Pain 9/10 Adult srm 08:26 Drug: morphine 4 mg [morphine 4 mg/mL intravenous cartridge (1 mL)] Route: IVP; Site: [facility] right antecubital; 09:07 Follow up: BP 126 / 83; Pulse 75 bpm; Resp 18 bpm; Pulse Ox 100% RA; headache 8/10 srm stomach pain 5/10 08:35 Drug: Diatrizoate Meglumine & Sodium 10 ml [diatrizoate meglumine and diat.sodium 66 srm %-10 % oral solution (10 mL)] Route: PO; 09:07 Drug: Diatrizoate Meglumine & Sodium 10 ml [diatrizoate meglumine and diat.sodium 66 srm %-10 % oral solution (10 mL)] Route: PO; 10:24 Drug: Acetaminophen 650 mg [acetaminophen 325 mg tablet (2 tabs)] Route: PO; srm 12:34 Drug: morphine 4 mg [morphine 4 mg/mL intravenous cartridge (1 mL)] Route: IVP; Site: [facility] right antecubital; Attachments: 12:09 Trend VS gb Intake: 11/18 12:21 IV: 1000.00ml (NS); Total: 1000.00ml. srm Output: 12:21 Urine: 600.00ml (Voided); Total: 600.00ml. srm Order Results: Lab Order: CBC with Diff; SPEC'M 11/18/16 07:41 Test: WHITE BLOOD COUNT; Value: 5.4; Range: 4.0-10.0; Units: K/mm3; Status: F Test: RED BLOOD COUNT; Value: 5.22; Range: 4.30-6.10; Units: M/mm3; Status: F Test: HEMOGLOBIN; Value: 16.1; Range: 14.0-18.0; Units: g/dl; Status: F Test: HEMATOCRIT; Value: 47.2; Range: 42.0-52.0; Units: %; Status: F Test: MEAN CORPUSCULAR VOLUME; Value: 90.6; Range: 80.0-96.0; Units: fl; Status: F Test: MEAN CORPUSCULAR HEMOGLOBIN; Value: 30.9; Range: 27.0-33.0; Units: pg; Status: F Test: MEAN CORPUSCULAR HGB CONC; Value: 34.1; Range: 32.0-36.5; Units: g/dl; Status: F Test: RED CELL DISTRIBUTION WIDTH; Value: 13.1; Range: 11.5-14.5; Units: %; Status: F Test: PLATELET COUNT, AUTOMATED; Value: 286; Range: 150-450; Units: k/mm3; Status: F Test: NEUTROPHILS %; Value: 74.2; Range: 36.0-66.0; Abnormal: Above high normal; Units: %; Status: F Test: LYMPH %; Value: 15.8; Range: 24.0-44.0; Abnormal: Below low normal; Units: %; Status: F Test: MONO %; Value: 5.6; Range: 0.0-5.0; Abnormal: Above high normal; Units: %; Status: F Test: EOS %; Value: 1.9; Range: 0.0-3.0; Units: %; Status: F Test: BASO %; Value: 1.0; Range: 0.0-1.0; Units: %; Status: F Test: LARGE UNSTAINED CELL %; Value: 1.5; Range: 0.0-4.0; Units: %; Status: F Test: NEUTROPHILS #; Value: 4.0; Range: 1.8-7.7; Units: K/mm3; Status: F Test: LYMPH #; Value: 0.9; Range: 1.5-6.5; Abnormal: Below low normal; Units: K/mm3; Status: F Test: MONO #; Value: 0.3; Range: 0.0-0.8; Units: K/mm3; Status: F Test: EOS #; Value: 0.1; Range: 0.0-0.50; Units: K/mm3; Status: F Test: BASO #; Value: 0.1; Range: 0.0-0.2; Units: K/mm3; Status: F Test: LARGE UNSTAINED CELL #; Value: 0.1; Range: 0.0-0.4; Units: K/mm3; Status: F Lab Order: [facility]; SPEC'M 11/18/16 07:41 Test: GLUCOSE, FASTING; Value: 100; Range: 70-105; Units: MG/DL; Status: F Test: BLOOD UREA NITROGEN; Value: 12; Range: 7-18; Units: MG/DL; Status: F Test: CREATININE FOR GFR; Value: 0.95; Range: 0.70-1.30; Units: MG/DL; Status: F Test: GLOMERULAR FILTRATION RATE; Value: > 60.0; Range: >60; Status: F Test: SODIUM LEVEL; Value: 140; Range: 136-145; Units: MEQ/L; Status: F Test: POTASSIUM SERUM; Value: 4.0; Range: 3.5-5.1; Units: MEQ/L; Status: F Test: CHLORIDE LEVEL; Value: 104; Range: 98-107; Units: MEQ/L; Status: F Test: CARBON DIOXIDE LEVEL; Value: 29; Range: 21-32; Units: MEQ/L; Status: F Test: ANION GAP; Value: 7; Range: 8-16; Abnormal: Below low normal; Units: MEQ/L; Status: F Test: CALCIUM LEVEL; Value: 9.3; Range: 8.5-10.1; Units: MG/DL; Status: F Test Note: ; Units are mL/min/1.73 m2 Chronic Kidney Disease Staging per NKF: Stage I & II GFR >=60 Normal to Mildly Decreased Stage III GFR 30-59 Moderately Decreased Stage IV GFR 15-29 Severely Decreased Stage V GFR <15 Very Little GFR Left ESRD GFR <15 on [employer] Lab Order: Liver Profile; SPEC'M 11/18/16 07:41 Test: AST/SGOT; Value: 10; Range: 15-37; Abnormal: Below low normal; Units: U/L; Status: F Test: ALT/SGPT; Value: 24; Range: 12-78; Units: U/L; Status: F Test: ALKALINE PHOSPHATASE; Value: 109; Range: 45-117; Units: U/L; Status: F Test: BILIRUBIN,TOTAL; Value: 0.8; Range: 0.2-1.0; Units: MG/DL; Status: F Test: BILIRUBIN,DIRECT; Value: 0.2; Range: 0.0-0.2; Units: MG/DL; Status: F Test: TOTAL PROTEIN; Value: 8.0; Range: 6.4-8.2; Units: GM/DL; Status: F Test: ALBUMIN; Value: 4.4; Range: 3.2-5.2; Units: GM/DL; Status: F Test: ALBUMIN/GLOBULIN RATIO; Value: 1.22; Range: 1.00-1.93; Status: F Lab Order: Lipase; SPEC'M 11/18/16 07:41 Test: LIPASE; Value: 104; Range: 73-393; Units: U/L; Status: F Radiology Order: Chest, 1 View Test: Chest, 1 View REASON FOR EXAMINATION: Chest Pain; Portable chest x-ray: Single view.; ; History: Chest pain.; ; Comparison chest x-ray October 17, 2016.; ; Findings: The lungs are symmetrically aerated and clear. Pleural angles are; sharp. Heart size is normal. Pulmonary vasculature is not increased.; ; Impression:; ; Negative portable chest x-ray.; ; ; ; Unreviewed; Outcome: 12:46 Decision to Hospitalize by Provider. br1 14:34 Discharge Assessment: Patient awake, alert and oriented x 3. No cognitive and/or srm functional deficits noted. Patient verbalized understanding of disposition instructions. patient administered narcotics - yes. Patient was admitted to the hospital or transferred to another facility. The following High Risk Discharge criteria are identified: None. Admitted to Med/Surg accompanied by tech, via stretcher, with chart. Condition: good Condition: stable. CT Study completed. Property :Personal belongings accompany Pt. 14:45 Patient left the ED. srm Signatures: Dispatcher [employer] EDToi Carrillo RN RN Radha Collins RN RN srm Nitza Oneal, Reg Reg gb Del Rio, Romelia, CANDY CUTTER MACHINE CANDY CUTTER MACHINE jb5 Reynaldo Archuleta MD MD br1 Lisandro Jane mm15 Red iMller rn1 Purvi Leonardo, Reg Reg hs2 Chart Complete MTDD
--- NOTE | 2016-11-20 15:46 | EDDOCDS ---
Physician Documentation [facility] Name: Mynor Chambers Age: 21 yrs Sex: Male : 1995 Arrival Date: 11/18/2016 Time: 06:58 Bed 5 Private MD: Disposition: 11/18/16 12:46 Hospitalization ordered by Tirso Freeman for Inpatient Admission. Preliminary diagnosis are Epigastric pain, Nausea and vomiting. - Bed requested for 4 [place]. - Status is Inpatient Admission. srm - Condition is Stable. - Problem is new. - Symptoms are unchanged. Historical: - Allergies: no known allergies; - Home Meds: 1. sucralfate 1 gram Oral tab three times a day (Last dose: 11/17/2016 20:00) 2. Paxil 20 mg Oral tab 1 tab once daily (Last dose: 11/17/2016 20:00) 3. pantoprazole 40 mg oral TbEC 1 tab 2 times per day (Last dose: 11/17/2016 20:00) - PMHx: Anxiety; Cycling Vomiting Syndrome; GERD; ulcers; ''Rupture esophagus''; - PSHx: Fractured right hip; - Social history: Smoking status: Patient states was never smoker of tobacco. No barriers to communication noted, The patient speaks fluent Luxembourger. - Family history: Not pertinent. - : The pt / caregiver states he / she is not on anticoagulants. Home medication list is obtained from the patient. - Exposure Risk Screening:: None identified. Vital Signs: 11/18 07:09 BP 132 / 76; Pulse 96; Resp 20; Temp 98.5(T); Pulse Ox 98% on R/A; Weight 70.76 kg / dwg 156 lbs; Height 5 ft. 11 in. (180.34 cm); Pain 10/10; 08:20 BP 124 / 69 (auto/); srm 08:21 Pulse 80 MON; Pulse Ox 99% ; srm 08:28 BP 124 / 69; Pulse 91; Resp 18; Pulse Ox 98% on R/A; Pain 9/10; srm 08:50 BP 126 / 83 (auto/); srm 08:51 Pulse 86 MON; Pulse Ox 99% ; srm 09:07 BP 126 / 83; Pulse 75; Resp 18; Pulse Ox 100% on R/A; srm 09:20 BP 134 / 79 (auto/); srm 09:21 Pulse 74 MON; Pulse Ox 99% ; srm 09:50 BP 130 / 73 (auto/); srm 09:51 Pulse 76 MON; Pulse Ox 99% ; srm 10:10 Pulse 76 MON; Resp 18; Pulse Ox 99% ; srm 10:19 BP 136 / 80 (auto/); srm 10:20 BP 134 / 78 (auto/); srm 10:21 Pulse 70 MON; Pulse Ox 99% ; srm 10:50 BP 123 / 67 (auto/); srm 10:51 Pulse 68 MON; Pulse Ox 97% ; srm 11:20 BP 121 / 68 (auto/); srm 11:21 Pulse 62 MON; Resp 18; Pulse Ox 96% ; srm 11:50 BP 125 / 75 (auto/); srm 11:51 Pulse 70 MON; Pulse Ox 99% ; srm 12:20 BP 130 / 74 (auto/); srm 12:21 Pulse 80 MON; Resp 18; Temp 97.6(O); Pulse Ox 100% ; srm 12:50 BP 136 / 74 (auto/); srm 12:51 Pulse 78 MON; Pulse Ox 100% ; srm 13:19 Pulse 88 MON; Pulse Ox 98% ; srm 13:20 BP 134 / 79 (auto/); srm 13:50 BP 144 / 85 (auto/); srm 13:51 Pulse 84 MON; Pulse Ox 99% ; srm 14:06 BP 134 / 74 (auto/); srm 14:07 Pulse 70 MON; Resp 18; Temp 99.3(TE); Pulse Ox 98% on R/A; srm 07:09 Body Mass Index 21.76 (70.76 kg, 180.34 cm) dwg MDM: 07:27 IV Saline Lock ordered. br1 07:27 Orientor/Pulse Ox/q 30 min VS ordered. br1 07:27 CBC with Diff Ordered. EDMS 07:27 BMP Ordered. EDMS 07:27 Liver Profile Ordered. EDMS 07:27 Lipase Ordered. EDMS 07:28 morphine 4 mg IVP once ordered. br1 07:28 Ondansetron 4 mg IVP once ordered. br1 07:28 NS 0.9% 1000 ml IV at 150 mL/hr continuous ordered. br1 07:28 Chest, 1 View Ordered. EDMS 07:28 Undress patient ordered. br1 07:28 ECG WITH READING ER PHYS+CARDIAG ordered. EDMS 07:32 GASTROINTESTINAL (GI) PANEL Ordered. EDMS 07:43 CT Chest Angio R/O PE Ordered. EDMS 07:43 CT ABD & PELVIS: IV and Oral Contrast Ordered. EDMS 07:56 Financial registration complete. mm15 08:24 morphine 4 mg IVP once ordered. br1 08:24 CBC with Diff Reviewed. br1 08:24 BMP Reviewed. br1 08:24 Liver Profile Reviewed. br1 08:24 Lipase Reviewed. br1 08:36 [facility] Payment Agreement was scanned into [employer] and attached to record. mm15 08:37 Diatrizoate Meglumine & Sodium Liquid 10 ml PO once; mix in 290cc of water at 0830 srm ordered. 08:37 Diatrizoate Meglumine & Sodium Liquid 10 ml PO once; mix in 290cc of water at 0900 srm ordered. 10:21 Acetaminophen Tablet 650 mg PO once; prn headache ordered. br1 12:28 morphine 4 mg IVP once ordered. br1 12:33 Admission / Observation Status ordered. EDMS 12:33 REGULAR DIET ordered. EDMS 12:48 BED REQUEST+ADM ordered. EDMS 15:14 T-Sheet-- Draft Copy was scanned into [employer] and attached to record. gb 11/19 12:09 ECG/EKG was scanned into [employer] and attached to record. gb 12:09 Trend VS was scanned into [employer] and attached to record. gb Administered Medications: 11/18 07:48 Drug: Ondansetron 4 mg [ondansetron HCl 2 mg/mL intravenous solution (2 mL)] Route: srm IVP; Site: right antecubital; 08:29 Follow up: Response: Nausea is resolved srm 07:48 Drug: NS 0.9% 1000 ml [sodium chloride 0.9 % intravenous solution] Route: IV; Rate: 150 srm mL/hr; Site: right antecubital; 12:24 Follow up: IV Status: Completed infusion srm 07:49 Drug: morphine 4 mg [morphine 4 mg/mL intravenous cartridge (1 mL)] Route: IVP; Site: [facility] right antecubital; 08:28 Follow up: BP 124 / 69; Pulse 91 bpm; Resp 18 bpm; Pulse Ox 98% RA; Pain 9/10 Adult srm 08:26 Drug: morphine 4 mg [morphine 4 mg/mL intravenous cartridge (1 mL)] Route: IVP; Site: [facility] right antecubital; 09:07 Follow up: BP 126 / 83; Pulse 75 bpm; Resp 18 bpm; Pulse Ox 100% RA; headache 06/08 srm stomach pain 03/08 08:35 Drug: Diatrizoate Meglumine & Sodium 10 ml [diatrizoate meglumine and diat.sodium 66 srm %-10 % oral solution (10 mL)] Route: PO; 09:07 Drug: Diatrizoate Meglumine & Sodium 10 ml [diatrizoate meglumine and diat.sodium 66 srm %-10 % oral solution (10 mL)] Route: PO; 10:24 Drug: Acetaminophen 650 mg [acetaminophen 325 mg tablet (2 tabs)] Route: PO; [facility] 12:34 Drug: morphine 4 mg [morphine 4 mg/mL intravenous cartridge (1 mL)] Route: IVP; Site: [facility] right antecubital; Signatures: Dispatcher [employer] Toi Pena RN RN Radha Whalen RN RN [facility] Nitza Oneal, Reg Reg Reynaldo Tovar MD MD br1 Lisandro Jane mm15 Efrain Foster RN RN sa The chart was reviewed and I authenticate all verbal orders and agree with the evaluation and treatment provided.Corrections: (The following items were deleted from the chart) 07:32 07:30 GASTROINTESTINAL (GI) PANEL+RANJANA ordered. EDMS EDMS Attachments: 08:36 [facility] Payment Agreement mm15 15:14 T-Sheet-- Draft Copy 11/19 12:09 ECG/EKG Chart Complete MTDD
--- NOTE | 2016-11-20 15:46 | EDDOCDS ---
Physician Documentation [facility] Name: Mynor Chambers Age: 21 yrs Sex: Male : 1995 Arrival Date: 11/18/2016 Time: 06:58 Bed 5 Private MD: Disposition: 11/18/16 12:46 Hospitalization ordered by Tirso Freeman for Inpatient Admission. Preliminary diagnosis are Epigastric pain, Nausea and vomiting. - Bed requested for 4 [place]. - Status is Inpatient Admission. srm - Condition is Stable. - Problem is new. - Symptoms are unchanged. Historical: - Allergies: no known allergies; - Home Meds: 1. sucralfate 1 gram Oral tab three times a day (Last dose: 11/17/2016 20:00) 2. Paxil 20 mg Oral tab 1 tab once daily (Last dose: 11/17/2016 20:00) 3. pantoprazole 40 mg oral TbEC 1 tab 2 times per day (Last dose: 11/17/2016 20:00) - PMHx: Anxiety; Cycling Vomiting Syndrome; GERD; ulcers; ''Rupture esophagus''; - PSHx: Fractured right hip; - Social history: Smoking status: Patient states was never smoker of tobacco. No barriers to communication noted, The patient speaks fluent Jamaican. - Family history: Not pertinent. - : The pt / caregiver states he / she is not on anticoagulants. Home medication list is obtained from the patient. - Exposure Risk Screening:: None identified. Vital Signs: 11/18 07:09 BP 132 / 76; Pulse 96; Resp 20; Temp 98.5(T); Pulse Ox 98% on R/A; Weight 70.76 kg / dwg 156 lbs; Height 5 ft. 11 in. (180.34 cm); Pain 10/10; 08:20 BP 124 / 69 (auto/); srm 08:21 Pulse 80 MON; Pulse Ox 99% ; srm 08:28 BP 124 / 69; Pulse 91; Resp 18; Pulse Ox 98% on R/A; Pain 9/10; srm 08:50 BP 126 / 83 (auto/); srm 08:51 Pulse 86 MON; Pulse Ox 99% ; srm 09:07 BP 126 / 83; Pulse 75; Resp 18; Pulse Ox 100% on R/A; srm 09:20 BP 134 / 79 (auto/); srm 09:21 Pulse 74 MON; Pulse Ox 99% ; srm 09:50 BP 130 / 73 (auto/); srm 09:51 Pulse 76 MON; Pulse Ox 99% ; srm 10:10 Pulse 76 MON; Resp 18; Pulse Ox 99% ; srm 10:19 BP 136 / 80 (auto/); srm 10:20 BP 134 / 78 (auto/); srm 10:21 Pulse 70 MON; Pulse Ox 99% ; srm 10:50 BP 123 / 67 (auto/); srm 10:51 Pulse 68 MON; Pulse Ox 97% ; srm 11:20 BP 121 / 68 (auto/); srm 11:21 Pulse 62 MON; Resp 18; Pulse Ox 96% ; srm 11:50 BP 125 / 75 (auto/); srm 11:51 Pulse 70 MON; Pulse Ox 99% ; srm 12:20 BP 130 / 74 (auto/); srm 12:21 Pulse 80 MON; Resp 18; Temp 97.6(O); Pulse Ox 100% ; srm 12:50 BP 136 / 74 (auto/); srm 12:51 Pulse 78 MON; Pulse Ox 100% ; srm 13:19 Pulse 88 MON; Pulse Ox 98% ; srm 13:20 BP 134 / 79 (auto/); srm 13:50 BP 144 / 85 (auto/); srm 13:51 Pulse 84 MON; Pulse Ox 99% ; srm 14:06 BP 134 / 74 (auto/); srm 14:07 Pulse 70 MON; Resp 18; Temp 99.3(TE); Pulse Ox 98% on R/A; srm 07:09 Body Mass Index 21.76 (70.76 kg, 180.34 cm) dwg MDM: 07:27 IV Saline Lock ordered. br1 07:27 Research Associate Policy/Pulse Ox/q 30 min VS ordered. br1 07:27 CBC with Diff Ordered. EDMS 07:27 BMP Ordered. EDMS 07:27 Liver Profile Ordered. EDMS 07:27 Lipase Ordered. EDMS 07:28 morphine 4 mg IVP once ordered. br1 07:28 Ondansetron 4 mg IVP once ordered. br1 07:28 NS 0.9% 1000 ml IV at 150 mL/hr continuous ordered. br1 07:28 Chest, 1 View Ordered. EDMS 07:28 Undress patient ordered. br1 07:28 ECG WITH READING ER PHYS+CARDIAG ordered. EDMS 07:32 GASTROINTESTINAL (GI) PANEL Ordered. EDMS 07:43 CT Chest Angio R/O PE Ordered. EDMS 07:43 CT ABD & PELVIS: IV and Oral Contrast Ordered. EDMS 07:56 Financial registration complete. mm15 08:24 morphine 4 mg IVP once ordered. br1 08:24 CBC with Diff Reviewed. br1 08:24 BMP Reviewed. br1 08:24 Liver Profile Reviewed. br1 08:24 Lipase Reviewed. br1 08:36 [facility] Payment Agreement was scanned into [employer] and attached to record. mm15 08:37 Diatrizoate Meglumine & Sodium Liquid 10 ml PO once; mix in 290cc of water at 0830 srm ordered. 08:37 Diatrizoate Meglumine & Sodium Liquid 10 ml PO once; mix in 290cc of water at 0900 srm ordered. 10:21 Acetaminophen Tablet 650 mg PO once; prn headache ordered. br1 12:28 morphine 4 mg IVP once ordered. br1 12:33 Admission / Observation Status ordered. EDMS 12:33 REGULAR DIET ordered. EDMS 12:48 BED REQUEST+ADM ordered. EDMS 15:14 T-Sheet-- Draft Copy was scanned into [employer] and attached to record. gb 11/19 12:09 ECG/EKG was scanned into [employer] and attached to record. gb 12:09 Trend VS was scanned into [employer] and attached to record. gb Administered Medications: 11/18 07:48 Drug: Ondansetron 4 mg [ondansetron HCl 2 mg/mL intravenous solution (2 mL)] Route: srm IVP; Site: right antecubital; 08:29 Follow up: Response: Nausea is resolved srm 07:48 Drug: NS 0.9% 1000 ml [sodium chloride 0.9 % intravenous solution] Route: IV; Rate: 150 srm mL/hr; Site: right antecubital; 12:24 Follow up: IV Status: Completed infusion srm 07:49 Drug: morphine 4 mg [morphine 4 mg/mL intravenous cartridge (1 mL)] Route: IVP; Site: [facility] right antecubital; 08:28 Follow up: BP 124 / 69; Pulse 91 bpm; Resp 18 bpm; Pulse Ox 98% RA; Pain 9/10 Adult srm 08:26 Drug: morphine 4 mg [morphine 4 mg/mL intravenous cartridge (1 mL)] Route: IVP; Site: [facility] right antecubital; 09:07 Follow up: BP 126 / 83; Pulse 75 bpm; Resp 18 bpm; Pulse Ox 100% RA; headache 06/08 srm stomach pain 03/08 08:35 Drug: Diatrizoate Meglumine & Sodium 10 ml [diatrizoate meglumine and diat.sodium 66 srm %-10 % oral solution (10 mL)] Route: PO; 09:07 Drug: Diatrizoate Meglumine & Sodium 10 ml [diatrizoate meglumine and diat.sodium 66 srm %-10 % oral solution (10 mL)] Route: PO; 10:24 Drug: Acetaminophen 650 mg [acetaminophen 325 mg tablet (2 tabs)] Route: PO; [facility] 12:34 Drug: morphine 4 mg [morphine 4 mg/mL intravenous cartridge (1 mL)] Route: IVP; Site: [facility] right antecubital; Signatures: Dispatcher [employer] Toi Pena RN RN Radha Whalen RN RN [facility] Nitza Oneal, Reg Reg Reynaldo Tovar MD MD br1 Lisandro Jane mm15 Efrain Foster RN RN sa The chart was reviewed and I authenticate all verbal orders and agree with the evaluation and treatment provided.Corrections: (The following items were deleted from the chart) 07:32 07:30 GASTROINTESTINAL (GI) PANEL+RANJANA ordered. EDMS EDMS Attachments: 08:36 [facility] Payment Agreement mm15 15:14 T-Sheet-- Draft Copy 11/19 12:09 ECG/EKG Chart Complete MTDD
[2016-11-20 16:30] VITALS: BP 154/92
[2016-11-20] MEDS: PROMETHAZINE INJ 25 MG/ML VIAL (J2550) IV PRN (18:26)
[2016-11-20 20:00] VITALS: BP 138/86
[2016-11-21] MEDS: PROMETHAZINE INJ 25 MG/ML VIAL (J2550) IV PRN (03:59)
[2016-11-21 04:00] VITALS: BP 138/90
[2016-11-21 08:00] VITALS: BP 136/80
[2016-11-21] MEDS: PANTOPRAZOLE 40MG TAB (PROTONIX) PO SCH (08:14)
[2016-11-21] MEDS: PARoxetine 25 MG CR TAB (PAXIL CR) PO SCH (08:14)
[2016-11-21] MEDS: ACETAMINOPHEN TAB 650MG DOSE (2X325MG) PO PRN ×2 (08:15→12:12)
[2016-11-21] MEDS: ONDANSETRON 4 MG TAB (S0181) PO PRN (08:56)
--- NOTE | 2016-11-21 09:43 | IPNPDOC ---
Assessment/Plan Date Seen The patient was seen on 11/21/16. Problems Problems: (1) Intractable vomiting Permanent Comment: 03/21/16 EGD/[id number] with normal random biopsies of esophagus, stomach, duodenum (mildly increased lymphocytes but preserved architecture), ileum, colon 02/2016 normal MRCP 02/2016 normal GES T1/2 70 minutes 04/2016 normal MRI brain 04/2016 normal HIDA c gb EF 53% 08/22/16 normal serum lactate 09/2016 [facility] multi-discipline admission (GI/Neurology/Psychiatry) felt diagnosis of: chronic migraine, moderate MDD +/- cannabanoid hyperemesis syndrome-recommended doxepin/topirimate titration, psychotherapy, NO NARCOTICS, t/c Marinol 10/18/16 normal serum lead, arsenic, mercury levels 11/18/16 CTA chest - PE 11/18/16 CT AP NAD Last Edited By: Mehran Reyna MD on Nov 20, 2016 14:01 Status: Acute Problem Text: 11/19/16 only medication that has helped to keep patient is THC-patient feels he needs ~0.5 gm QD to be symptom-free. He has had life-threatening complications of his severe recurrent vomiting. Will d/w Dr. Piedra re medical THC to be dispensed by her or one of her GI colleagues ([facility] s coverage, but changing to [place]). [facility] legal limit for 30 day supply is 5 gl=558 0.5 gm cigs (only non- smokable form available in [facility]) Obviously would favor starting at 0.5 qd and obviously would continue workup for other cause. Tadeo to do outpatient SB enteroscopy in 2W. 11/20/16 closest medical marijuana practitioner is Dr. Ryan Ang [facility] in [facility] (none in [facility])-will ask PFS to arrange outpatient f/u c Dr. Ang to consider candidacy -continue paroxetine-admits has reduced anxiety - IV fluids - PRN GI cocktail/anti-emetics 11/21 I spoke with PFS who plans on working with pt to coordinate care. (Snehal Tolliver) (2) Headache Status: Acute Problem Text: favor baseline migraine c abdominal component Likely tension headache as pt has ARNULFO temporal pain. Does not seem c/w migraine headache. C/O photophobia but does not react during ophthal exam. Normal fundoscopic exam. - tylenol PRN (3) GERD (gastroesophageal reflux disease) Permanent Comment: Last Edited By: Mehran Reyna MD on May 12, 2016 16:11 Status: Chronic Problem Text: IV PPI until pt able to take PO (4) Cannabinoid hyperemesis syndrome Status: Chronic Response to Treatment: Stable Problem Text: treatment as per intractable vomiting (5) Esophageal perforation Permanent Comment: occured 07/2016-treated medically by Dr. Graves Last Edited By: Mehran Reyna MD on Nov 20, 2016 14:13 Status: Resolved Response to Treatment: Stable Problem Text: No recurrent symptoms Plan / VTE VTE Prophylaxis Ordered?: Yes VTE Exclusion Pharmacological: At Low Risk for VTE Subjective Review of Systems CC/HPI Pt c/o abd pain, nausea this morning after having a couple bites of cereal for breakfast. Also c/o VILLALBA, took some Tyl. Asked what he rates his current pain at , 8. Denies needing to take anything at home for VILLALBA when they occur. General: Reports: Fatigue Constitutional: Denies: Chills, Fever Pulmonary: Denies: Cough, Dyspnea Cardiovascular: Denies: Chest Pain, Palpitations Gastrointestinal: Reports: Nausea, Denies: Diarrhea, Vomiting Genitourinary: Denies: Dysuria, Frequency Neurological: Reports: Weakness Psych: Reports: Depression Objective Physical Examination General Exam: Positive: Alert, Cooperative, No Acute Distress (appears comfortable, moves freely in the bed, affect is flat.) Eye Exam: Positive: Conjunctiva & lids normal, EOMI, PERRLA ENT Exam: Positive: Pharynx Normal Neck Exam: Positive: Supple Chest Exam: Positive: Clear to auscultation, Normal air movement Heart Exam: Positive: Normal S1, Normal S2, Rate Normal Abdomen Exam: Positive: Normal bowel sounds, Soft, Negative: Tenderness Extremity Exam: Negative: Cyanosis, Edema Skin Exam: Positive: Nl turgor and temperature Psych Exam: Positive: Mental status NL Vital Signs/I&O Vital Signs Date Time Temp Pulse Resp B/P Pulse Ox O2 Delivery O2 Flow Rate FiO2 11/21/16 08:00 96.9 79 18 136/80 98 Room Air I&O- Last 24 Hours up to 6 AM 11/21/16 05:59 Intake Total 3620 ml Output Total 2500 ml Balance 1120 ml Laboratory Data Microbiology Microbiology 11/20/16 Gastrointestinal Tract Panel (PCR) - Final, Complete SHANNON,MEKHI N. PA-C Nov 21, 2016 09:43 LANCE FRIEDMAN MD Nov 21, 2016 19:15
[2016-11-21 12:00] VITALS: BP 139/95
[2016-11-21] MEDS ORDERED: ONDA1TAB15 PO (14:45)
--- NOTE | 2016-11-21 20:20 | DSES ---
DATE OF ADMISSION: 11/18/2016 DATE OF DISCHARGE: 11/21/2016 PRIMARY CARE PHYSICIAN: Dr. Reyna ATTENDING PHYSICIAN: Dr. Caty Ross PRINCIPAL DIAGNOSIS: Intractable vomiting. SECONDARY DIAGNOSES: 1. Headaches 2. Gastroesophageal reflux disease. 3. Cannabinoid hyperemesis syndrome. 4. History of esophageal perforation. CONSULTANTS: None. PROCEDURES: None. SUMMARY STATEMENT: This is a 21-year-old man with a history of intractable vomiting who presented with intractable nausea and vomiting as well as inability to tolerate oral intake for the prior week. Patient has had extensive work up for his intractable vomiting including EGD, colonoscopy, MRCP, brain MRI, HIDA scan. He had a multidisciplinary admission to [facility] and was diagnosed with chronic migraine +/- cannabinoid hyperemesis syndrome. He states he is scheduled to have a small bowel enteroscopy later this week. He was admitted and treated with Promethazine and Zofran, and had gradual improvement of his symptoms. On day of discharge he was able to tolerate breakfast and lunch and was discharged home to follow up with his GI doctors and his primary care physician. DISCHARGE PLANS: 1. Discharge medications: - ondansetron 4 mg by mouth every 6 hours as needed for nausea or vomiting - Lorazepam 1 mg by mouth every 6 hours as needed for anxiety - Pantoprazole 40 mg by mouth twice daily - Paroxetine 20 mg by mouth at bedtime - Promethazine 25 mg every 6 hours as needed for nausea - Sucralfate 1 gram by mouth three times a day 2. Diet: Normal diet. 3. Activity: Activity as tolerated. CONDITION: Stable. PROGNOSIS: Good. PENDING STUDIES: None. FOLLOW UP: With GI later this week and with his primary care physician within one week. HOSPITAL COURSE: 1. Intractable vomiting. Diagnosis uncertain though patient has been thought to have cyclic vomiting with possible abdominal migraines in the past. It was also thought that he may have some component of cannabinoid hyperemesis syndrome as patient does smoke marijuana. Patient states that marijuana is the only thing makes it feel better. He thinks that he needs about 0.5 gram of marijuana daily to be symptom free. We contacted a local physician who does prescribe medical marijuana regarding his ongoing care and need for medical marijuana, however their office states they do not prescribe for this indication. Most likely it will be difficult for patient to legally obtain marijuana for his condition ion [facility]. Patient is scheduled for an outpatient small bowel enteroscopy on 11/24/2016. We recommended that he follow up with his GI doctor and his primary care physician. 2. Headache. Patient complained of ongoing headaches throughout his hospitalization which were likely tension headaches. They did not respond to Tylenol. He states he has been told to avoid opiates prior to his upcoming small bowel enteroscopy. 3. Gastroesophageal reflux disease. Patient was continued on pantoprazole and Carafate. 4. History of esophageal perforation. Patient had no recurrent symptoms of this during his hospitalization. He was treated medically by Dr. Graves in July 2016 for this. LUCHO
== END 2016-11-21 15:54 | disposition home or self-care (01) | DRG 249 ==
LOC: M ED 06:58 → INTOOBSV 12:28 → M ED INP 12:28 → M MSPAV 14:48 → M PED 23:05 → OBSVTOIN 11-21 14:04
PROVIDERS: ADMIT Family Medicine; ATTEND Family Medicine
DX: R11.10 Vomiting, unspecified (principal); F32.9 Major depressive disorder, single episode, unspecified; K21.9 Gastro-esophageal reflux disease without esophagitis; G44.209 Tension-type headache, unspecified, not intractable; F12.90 Cannabis use, unspecified, uncomplicated; F41.9 Anxiety disorder, unspecified; Z88.8 Allergy status to other drugs, medicaments and biological substances; Z79.899 Other long term (current) drug therapy

== ENCOUNTER → 2016-11-30 | Outpatient (CLI) | payer OTHER ==
[~2016-11-30] MED LIST changes: +ONDA1TAB15 PO; +PAXI20TA3 PO; +SUCR1TAB56 PO
--- NOTE | 2016-11-30 12:56 | REP ---
Right hand four views: There is a boxer's fracture in the neck of the fifth digit metacarpal. There is no dislocation. Mineralization and joint spaces otherwise are unremarkable. No calcifications or foreign bodies. Signed by Toi Landis MD 11/30/2016 12:48 P
== END ==
LOC: M LRY 12:33
PROVIDERS: ATTEND Nurse Practitioner Family
DX: S69.91XA Unspecified injury of right wrist, hand and finger(s), initial encounter (principal); X58.XXXA Exposure to other specified factors, initial encounter; Y92.9 Unspecified place or not applicable

== ENCOUNTER 2016-12-11 20:49 | Emergency (ER) | payer OTHER ==
[2016-12-11] MEDS ORDERED: HYDROmorphone HCL 1 MG/ML SYRINGE (J1170) As Ordered ONE (22:07)
[2016-12-11 22:24] LABS: ALBUMIN 4.1 GM/DL (3.2-5.2); ALBUMIN/GLOBULIN RATIO 1.28 (1.00-1.93); ALKALINE PHOSPHATASE 100 U/L (45-117); ALT/SGPT 32 U/L (12-78); AMYLASE 70 U/L (25-115); ANION GAP 9 MEQ/L (8-16); AST/SGOT 24 U/L (15-37); BILIRUBIN,TOTAL 0.4 MG/DL (0.2-1.0); BLOOD UREA NITROGEN 18 MG/DL (7-18); CALCIUM LEVEL 9.2 MG/DL (8.5-10.1); CARBON DIOXIDE LEVEL 28 MEQ/L (21-32); CHLORIDE LEVEL 106 MEQ/L (98-107); CREATININE FOR GFR 0.89 MG/DL (0.70-1.30); GLOMERULAR FILTRATION RATE > 60.0 (>60); GLUCOSE, FASTING 95 MG/DL (70-105); POTASSIUM SERUM 3.8 MEQ/L (3.5-5.1); SODIUM LEVEL 143 MEQ/L (136-145); TOTAL PROTEIN 7.3 GM/DL (6.4-8.2)
[2016-12-11] MEDS ORDERED: ONDANSETRON 4MG/2ML VIAL (J2405) As Ordered ONE (22:35)
[2016-12-11 22:44] LABS: BASO % 0.3 % (0.0-1.0); EOS # 0.1 K/mm3 (0.0-0.50); EOS % 1.2 % (0.0-3.0); LARGE UNSTAINED CELL # 0.2 K/mm3 (0.0-0.4); LYMPH # 2.2 K/mm3 (1.5-6.5); LYMPH % 23.5 % (24.0-44.0); MEAN CORPUSCULAR HEMOGLOBIN 31.2 pg (27.0-33.0); MEAN CORPUSCULAR HGB CONC 35.1 g/dl (32.0-36.5); MEAN CORPUSCULAR VOLUME 89.1 fl (80.0-96.0); MONO # 0.6 K/mm3 (0.0-0.8); MONO % 6.8 % (0.0-5.0); NEUTROPHILS # 5.6 K/mm3 (1.8-7.7); NEUTROPHILS % 66.3 % (36.0-66.0); PLATELET COUNT, AUTOMATED 328 k/mm3 (150-450); RED CELL DISTRIBUTION WIDTH 12.3 % (11.5-14.5); WHITE BLOOD COUNT 8.5 K/mm3 (4.0-10.0)
[2016-12-11] MEDS ORDERED: ISOVUE-370 76% 100ML VIAL (Q9967) As Ordered ONE (23:02)
[2016-12-11] MEDS ORDERED: PROMETHAZINE INJ 25 MG/ML VIAL (J2550) As Ordered ONE (23:15)
--- NOTE | 2016-12-12 | REPUSA ---
CLINICAL HISTORY: Abdominal pain. TECHNIQUE: Multiple axial, sagittal and coronal CT images were obtained through the abdomen and pelvi s after administration of intravenous contrast material. COMMENTS: Compared to 08/22/16 study. The liver is of uniform attenuation without mass or defect. There is no intra or extrahepatic biliary ductal dilatation. The spleen is normal. The gallbladder is within normal limits. The pancreas is of normal contour and attenuation characteristics. There is no evidence of adrenal mass. Both kidneys demonstrate prompt and equal nephrograms. The kidneys are normal in size, shape and conf iguration. There is no evidence of renal or ureteral mass. No renal or ureteral calculi are identifie d. There is no hydroureter or hydronephrosis. No evidence for appendicitis. There is wall thickening noted involving all small bowel segments comp atible with enteritis.. No evidence for small or large bowel obstruction. There is no evidence of abd ominal ascites or lymphadenopathy. There is no evidence of intrinsic or extrinsic bladder mass. There is no pelvic ascites or lymphadeno brian. Images of the lung bases show no evidence of pleural or parenchymal mass. There are no pleural effusi ons. The bony structures are free of lytic or blastic lesions. IMPRESSION: Enteritis as above. Some progression since the prior study. Infectious and inflammatory etiologies (including Crohn's and Celiac disease) are considered. Consider consultation with GI service. Thank you for your kind referral of this patient.
[2016-12-12 00:12] LABS: ERYTHROCYTE SEDIMENTATION RATE 4 mm/hr (0-15)
[2016-12-12] MEDS ORDERED: OXYCODONE/APAP 5MG/325MG(BULK) 1 TAB TAB As Ordered ONE (01:01)
--- NOTE | 2016-12-12 01:45 | EDDOCDS ---
Physician Documentation [facility] Name: Mynor Chambers Age: 21 yrs Sex: Male : 1995 Arrival Date: 12/11/2016 Time: 20:49 Bed 10 Private MD: Mehran Reyna E. Disposition: 12/12 01:19 I have independently interviewed and examined the patient, and I agree with the mm11 investigation, diagnosis and treatment plan as documented by the Resident. Disposition: 12/12/16 01:13 Discharged to Home/Self Care. Impression: Other abdominal pain, Unspecified abdominal pain, Generalized abdominal pain, Vomiting. - Condition is Stable. - Discharge Instructions: Abdominal Pain, Adult, Nausea and Vomiting, Nausea and Vomiting, [id number], Abdominal Pain, Adult, [id number]. - Prescriptions for Percocet 5- 325 mg Oral Tablet - take 1 tablet by ORAL route every 6 hours As needed MDD: 4 tabs; 20 tablet. promethazine 25 mg Oral Tablet - take 1 tablet by ORAL route every 6 hours As needed; 12 tablet. - Medication Reconciliation, Local Pharmacy Hours form. - Follow up: Mehran Reyna MD; When: 1 week; Reason: Recheck today's complaints, Continuance of care. - Problem is chronic. - Symptoms have improved. - Notes: Can take zofran and phenergan at night to help with nausea and sleep. Will give temporary supply of percocet for pain to be taken as needed. Please follow up with PCP Dr. Mehran Reyna in 1 week. Historical: - Allergies: no known allergies; - Home Meds: 1. pantoprazole 40 mg oral TbEC 1 tab 2 times per day (Last dose: 12/11/2016 08:00) 2. sucralfate 1 gram Oral tab three times a day (Last dose: 12/11/2016 08:00) 3. Paxil 20 mg Oral tab 1 tab once daily (Last dose: 12/11/2016 08:00) 4. dicyclomine 20 mg Oral tab 3 times per day (Last dose: 12/11/2016 08:00) - PMHx: Anxiety; Cycling Vomiting Syndrome; GERD; ''Rupture esophagus''; ulcers; - PSHx: Fractured right hip; - Social history: Smoking status: Patient states was never smoker of tobacco. Patient uses street drugs, marijuana, Patient/guardian denies using alcohol, No barriers to communication noted, The patient speaks fluent Slovenian, Speaks appropriately for age. - Family history: Not pertinent. - : The pt / caregiver states he / she is not on anticoagulants. Home medication list is obtained from the patient, family members, [employer] import data. - Exposure Risk Screening:: None identified. Vital Signs: 12/11 20:52 BP 128 / 63; Pulse 81; Resp 18; Temp 97.1(O); Pulse Ox 98% on R/A; Weight 68.04 kg / ct3 150 lbs (R); Height 5 ft. 11 in. (180.34 cm) (R); Pain 10/10; 21:24 BP 134 / 75 (auto/); tm5 21:25 Pulse 68 MON; Resp 20 S; Pulse Ox 97% on R/A; Pain 10/10; tm5 21:54 BP 120 / 75 (auto/); tm5 21:54 Pulse 68 MON; Resp 20 S; Pulse Ox 98% on R/A; Pain 10/10; tm5 22:24 BP 122 / 81 (auto/); tm5 22:24 Pulse 66 MON; Resp 16 S; Pulse Ox 94% on R/A; Pain 0/10; tm5 22:39 BP 123 / 56; Pulse 69; Resp 20; Pulse Ox 98% on R/A; Pain 2/10; tm5 22:54 BP 127 / 71 (auto/); tm5 22:54 Pulse 66 MON; Pulse Ox 97% ; tm5 23:24 BP 118 / 64 (auto/); tm5 23:24 Pulse 68 MON; Resp 18 S; Pulse Ox 97% on R/A; Pain 0/10; tm5 12/12 01:29 BP 117 / 68; Pulse 65; Resp 18; Temp 98.1(O); Pulse Ox 98% on R/A; Pain 0/10; tm5 12/11 20:52 Body Mass Index 20.92 (68.04 kg, 180.34 cm) ct3 MDM: 12/11 22:04 [facility] Payment Agreement was scanned into [employer] and attached to record. jp5 22:04 Financial registration complete. jp5 22:05 IV Saline Lock ordered. gk1 22:05 LR Solution 1000 ml IV at bolus once ordered. gk1 22:05 Dilaudid - HYDROmorphone 1 mg IVP once ordered. gk1 22:06 ECG WITH READING ER PHYS+CARDIAG ordered. EDMS 22:06 Venetian Blind Machine Operator ordered. gk1 22:07 CBC with Diff Ordered. EDMS 22:07 Complete Comphrensive Metabolic Ordered. EDMS 22:07 Amylase Ordered. EDMS 22:07 Lipase Ordered. EDMS 22:07 CRP Ordered. EDMS 22:07 ESR Ordered. EDMS 22:07 Cardiac Injury Profile Ordered. EDMS 22:21 CT ABD & PELVIS WITH CONTRAST Ordered. EDMS 22:26 TROPONIN Ordered. EDMS 22:30 Ondansetron 4 mg IVP once ordered. gk1 23:12 Promethazine 25 mg IVP once; dilute and administer 30-60 minutes ordered. 1 12/12 00:52 oxyCODONE-acetaminophen 4 pack 5 mg-325 mg 1 packets PO once; Dispense with pt, take as gk1 per instruction on package ordered. 00:53 CBC with Diff Reviewed. gk1 00:53 Cardiac Injury Profile Reviewed. gk1 00:53 Complete Comphrensive Metabolic Reviewed. gk1 00:53 Amylase Reviewed. gk1 00:53 Lipase Reviewed. gk1 00:53 CRP Reviewed. gk1 00:53 ESR Reviewed. gk1 00:53 TROPONIN Reviewed. gk1 00:53 CT ABD & PELVIS WITH CONTRAST Reviewed. gk1 Administered Medications: 12/11 22:12 Drug: LR 1000 ml [lactated ringers intravenous solution] Route: IV; Rate: bolus; Site: tm5 left hand; 23:45 Follow up: IV Status: Completed infusion; IV Intake: 1000ml tm5 22:12 Drug: Dilaudid - HYDROmorphone 1 mg [hydromorphone 1 mg/mL injection syringe (1 mL)] tm5 Route: IVP; Site: left hand; 22:39 Follow up: BP 123 / 56; Pulse 69 bpm; Resp 20 bpm; Pulse Ox 98% RA; Pain 2/10 Adult; tm5 Response: No Adverse Reaction; Pain is decreased 22:38 Drug: Ondansetron 4 mg [ondansetron HCl 2 mg/mL intravenous solution (2 mL)] Route: tm5 IVP; Site: left hand; 23:13 Follow up: Response: Nausea is unchanged; No Adverse Reaction tm5 23:21 Drug: Promethazine 25 mg [promethazine 25 mg/mL injection solution (1 mL)] {Note: tm5 administered in 50cc NS over 30 minutes IVPB.} Route: IVP; Site: left hand; 23:45 Follow up: Response: Nausea is resolved; No Adverse Reaction tm5 12/12 01:03 Drug: oxyCODONE-acetaminophen 4 pack 1 packets [oxycodone-acetaminophen 5 mg-325 mg tm5 tablet (1 tabs)] {Co-Signature: mgs (Mynor Bui RN).} Route: PO; 01:04 Follow up: Response: Med's dispensed home; meds provided to pt's mother for at home use tm5 for pain control Signatures: Dispatcher [employer]Host EDMynor Billings DO DO mm11 Josee Weber, RN RN ttb Deborah Son jp5 Linus Vences DO DO gk1 Ashley LiraRN RN tm5 Mynor Bui RN mgs The chart was reviewed and I authenticate all verbal orders and agree with the evaluation and treatment provided.Corrections: (The following items were deleted from the chart) 12/11 22:21 22:06 CT Abdomen with contrast+CT ordered. EDMS EDMS 22:24 22:21 TROPONIN+LAB ordered. EDMS EDMS Attachments: 22:04 [facility] Payment Agreement jp5 MTDD
--- NOTE | 2016-12-12 01:46 | EDDOCDS ---
Nurse's Notes [facility] Name: Mynor Chambers Age: 21 yrs Sex: Male : 1995 Arrival Date: 12/11/2016 Time: 20:49 Bed 10 Private MD: Mehran Reyna E. Diagnosis: Other abdominal pain;Unspecified abdominal pain;Generalized abdominal pain;Vomiting Presentation: 12/11 20:59 Presenting complaint: Mother states: pt states he has been vomiting for 5 days with mid ttb abd pain, throat pain, headache. States he started vomiting blood today. Mother reports syncope. Adult Sepsis Screening: The patient does not have new or worsening altered mentation. Patient's respiratory rate is less than 22. Systolic blood pressure is greater than 100. Patient has a qSOFA score of 0- Negative Sepsis Screen. Suicide/Homicide risk assessment- the patient denies having any suicidal and/or homicidal ideations and does not present with any other emotional, behavioral or mental health complaints. 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 Transition of care: patient was not received from another setting of care. 20:59 Acuity: DINAH Level 3 ttb 20:59 Method Of Arrival: Walkin/Carried/Asstd ttb Triage Assessment: 21:03 General: Appears distressed, uncomfortable, well nourished, well groomed, Behavior is ttb restless. Pain: Location: mid abd. HIV screening NA for this visit Offered previously. Neurological: Level of Consciousness is awake, alert. Neurological: Reports headache a syncopal episode. Cardiovascular: Chest pain is denied. Respiratory: No deficits noted. Airway is patent Denies cough, shortness of breath. GI: Reports upper abd pain, nausea, vomiting. GI: Reports cramping, diarrhea. Derm: Skin is normal. Historical: - Allergies: no known allergies; - Home Meds: 1. pantoprazole 40 mg oral TbEC 1 tab 2 times per day (Last dose: 12/11/2016 08:00) 2. sucralfate 1 gram Oral tab three times a day (Last dose: 12/11/2016 08:00) 3. Paxil 20 mg Oral tab 1 tab once daily (Last dose: 12/11/2016 08:00) 4. dicyclomine 20 mg Oral tab 3 times per day (Last dose: 12/11/2016 08:00) - PMHx: Anxiety; Cycling Vomiting Syndrome; GERD; ''Rupture esophagus''; ulcers; - PSHx: Fractured right hip; - Social history: Smoking status: Patient states was never smoker of tobacco. Patient uses street drugs, marijuana, Patient/guardian denies using alcohol, No barriers to communication noted, The patient speaks fluent Estonian, Speaks appropriately for age. - Family history: Not pertinent. - : The pt / caregiver states he / she is not on anticoagulants. Home medication list is obtained from the patient, family members, [employer] import data. - Exposure Risk Screening:: None identified. Screenin:28 Screening information is obtained from the patient. Fall risk: No risks identified. tm5 Assistance ADL's: requires no assistance with activities of daily living. Abuse/DV Screen: The patient / caregiver reports he/she is: not in a situation that causes fear, pain or injury. Nutritional screening: No deficits noted. Advance Directives: There is no active DNR order. home support is adequate. Assessment: 21:38 General: Appears ill, Behavior is anxious, cooperative. Pain: Location: abdomen Pain tm5 currently is 10 out of 10 on a pain scale. Quality of pain is described as burning, crampy. Neurological: Level of Consciousness is awake, alert, Oriented to person, place, time. Cardiovascular: Rhythm is sinus rhythm No ectopy. Respiratory: Airway is patent Respiratory effort is even, unlabored, Respiratory pattern is regular, symmetrical, Breath sounds are clear bilaterally. GI: Abdomen is flat, non- distended Bowel sounds present X 4 quads. Abd is soft and non tender X 4 quads. Reports lower abdominal pain, upper abd pain, nausea, vomiting, intolerance of food, intolerance of fluids. : No deficits noted. Derm: Skin is pink, warm & dry. 21:59 General: still awaiting orders for this pt from Resident Vences. tm5 22:39 Reassessment: Patient appears in no apparent distress at this time. Patient states tm5 feeling better. Patient states symptoms have improved. Cardiovascular: Rhythm is sinus rhythm No ectopy. 23:11 General: pt trans[ported back from CT by this RN, complains of Nausea & is asking for tm5 Phenergan, Resident aware of this . 23:53 Reassessment: Patient appears in no apparent distress at this time. Patient states tm5 feeling better. Patient states symptoms have improved. General: pt with eyes closed, snoring respirations heard, no s/s of any distress. Cardiovascular: Rhythm is regular. 12/12 01:29 Reassessment: Patient appears in no apparent distress at this time. Patient states tm5 feeling better. Patient states symptoms have improved. pt had to be awakened for discharge . Vital Signs: 12/11 20:52 BP 128 / 63; Pulse 81; Resp 18; Temp 97.1(O); Pulse Ox 98% on R/A; Weight 68.04 kg (R); ct3 Height 5 ft. 11 in. (180.34 cm) (R); Pain 10/10; 21:24 BP 134 / 75 (auto/); tm5 21:25 Pulse 68 MON; Resp 20 S; Pulse Ox 97% on R/A; Pain 10/10; tm5 21:54 BP 120 / 75 (auto/); tm5 21:54 Pulse 68 MON; Resp 20 S; Pulse Ox 98% on R/A; Pain 10/10; tm5 22:24 BP 122 / 81 (auto/); tm5 22:24 Pulse 66 MON; Resp 16 S; Pulse Ox 94% on R/A; Pain 0/10; tm5 22:39 BP 123 / 56; Pulse 69; Resp 20; Pulse Ox 98% on R/A; Pain 2/10; tm5 22:54 BP 127 / 71 (auto/); tm5 22:54 Pulse 66 MON; Pulse Ox 97% ; tm5 23:24 BP 118 / 64 (auto/); tm5 23:24 Pulse 68 MON; Resp 18 S; Pulse Ox 97% on R/A; Pain 0/10; tm5 12/12 01:29 BP 117 / 68; Pulse 65; Resp 18; Temp 98.1(O); Pulse Ox 98% on R/A; Pain 0/10; tm5 12/11 20:52 Body Mass Index 20.92 (68.04 kg, 180.34 cm) ct3 Vitals: 12/11 20:52 Log In Time: December 11, 2016 at 20:50. ct3 20:52 RN notified that patient meets Red Flag criteria. ct3 ED Course: 20:51 Patient visited by Federica Escobar PCA. ct3 20:51 Mehran Reyna is Private Physician. ct3 20:51 Patient moved to Waiting ct3 20:56 Patient visited by Federica Escobar PCA. ct3 20:56 Patient moved to Pre RCE ct3 20:57 Irina BenjaminRN is Primary Nurse. ttb 20:57 Patient moved to 10 ttb 21:02 Triage Initiated ttb 21:05 Patient visited by Josee Weber RN. ttb 21:17 Linus Vences DO is PHCP. gk1 21:17 Mynor Do DO is Attending Physician. gk1 21:29 Awaiting ED physician evaluation. tm5 21:29 Inserted saline lock: 20 gauge in left hand and blood collected. The patient tolerated tm5 the procedure well. 21:29 Missed attempts: 18 gauge X 1 in left antecubital area. tm5 21:29 Labs drawn. (by ED staff). Sent per order to lab. tm5 21:37 Patient visited by Ashley Lira RN. tm5 21:39 Patient visited by Mynor Do DO. mm11 21:46 Patient visited by Ashley Lira RN. tm5 21:46 ED physician to see patient. tm5 21:59 Patient visited by sAhley Lira RN. tm5 22:02 Patient visited by Linus Vences DO. gk1 22:02 Patient visited by Linus Vences DO. gk1 22:04 REPLACED BY [facility] Payment Agreement was scanned into [employer] and attached to record. jp5 22:16 Patient visited by Tadeo Rush PCA. mdr 22:16 EKG done. (by ED staff). Reviewed by Mynor Do DO. mdr 22:46 Primary Nurse role handed off by Irina Benjamin,RN ar3 22:58 Patient visited by Ashley Lira RN. tm5 22:[address] tm5 23:11 Patient visited by Ashley Lira RN. tm5 23:11 Patient moved back from CT. tm5 23:59 Patient visited by Ashley Lira RN. tm5 12/12 00:18 CT ABD & PELVIS WITH CONTRAST Returned. EDMS 00:54 Patient visited by Ashley Lira RN. tm5 01:10 Mehran Reyna MD is Referral Physician. gk1 01:28 Patient visited by Ashley Lira RN. tm5 01:29 The patient / caregiver is instructed regarding the plan of care and ED course. tm5 01:29 Discontinued lock intact, bleeding controlled, pressure dressing applied, No tm5 redness/swelling at site. No procedures done that require assistance. 01:43 Patient visited by Ashley Lira RN. tm5 Administered Medications: 12/11 22:12 Drug: LR 1000 ml [lactated ringers intravenous solution] Route: IV; Rate: bolus; Site: tm5 left hand; 23:45 Follow up: IV Status: Completed infusion; IV Intake: 1000ml tm5 22:12 Drug: Dilaudid - HYDROmorphone 1 mg [hydromorphone 1 mg/mL injection syringe (1 mL)] tm5 Route: IVP; Site: left hand; 22:39 Follow up: BP 123 / 56; Pulse 69 bpm; Resp 20 bpm; Pulse Ox 98% RA; Pain 2/10 Adult; tm5 Response: No Adverse Reaction; Pain is decreased 22:38 Drug: Ondansetron 4 mg [ondansetron HCl 2 mg/mL intravenous solution (2 mL)] Route: tm5 IVP; Site: left hand; 23:13 Follow up: Response: Nausea is unchanged; No Adverse Reaction tm5 23:21 Drug: Promethazine 25 mg [promethazine 25 mg/mL injection solution (1 mL)] {Note: tm5 administered in 50cc NS over 30 minutes IVPB.} Route: IVP; Site: left hand; 23:45 Follow up: Response: Nausea is resolved; No Adverse Reaction tm5 12/12 01:03 Drug: oxyCODONE-acetaminophen 4 pack 1 packets [oxycodone-acetaminophen 5 mg-325 mg tm5 tablet (1 tabs)] {Co-Signature: mgs (Mynor Bui RN).} Route: PO; 01:04 Follow up: Response: Med's dispensed home; meds provided to pt's mother for at home use tm5 for pain control Intake: 12/11 23:45 IV: 1000.00ml; Total: 1000.00ml. tm5 Order Results: Lab Order: CBC with Diff; SPEC'M 12/11/16 21:26 Test: WHITE BLOOD COUNT; Value: 8.5; Range: 4.0-10.0; Units: K/mm3; Status: F Test: RED BLOOD COUNT; Value: 4.63; Range: 4.30-6.10; Units: M/mm3; Status: F Test: HEMOGLOBIN; Value: 14.5; Range: 14.0-18.0; Units: g/dl; Status: F Test: HEMATOCRIT; Value: 41.3; Range: 42.0-52.0; Abnormal: Below low normal; Units: %; Status: F Test: MEAN CORPUSCULAR VOLUME; Value: 89.1; Range: 80.0-96.0; Units: fl; Status: F Test: MEAN CORPUSCULAR HEMOGLOBIN; Value: 31.2; Range: 27.0-33.0; Units: pg; Status: F Test: MEAN CORPUSCULAR HGB CONC; Value: 35.1; Range: 32.0-36.5; Units: g/dl; Status: F Test: RED CELL DISTRIBUTION WIDTH; Value: 12.3; Range: 11.5-14.5; Units: %; Status: F Test: PLATELET COUNT, AUTOMATED; Value: 328; Range: 150-450; Units: k/mm3; Status: F Test: NEUTROPHILS %; Value: 66.3; Range: 36.0-66.0; Abnormal: Above high normal; Units: %; Status: F Test: LYMPH %; Value: 23.5; Range: 24.0-44.0; Abnormal: Below low normal; Units: %; Status: F Test: MONO %; Value: 6.8; Range: 0.0-5.0; Abnormal: Above high normal; Units: %; Status: F Test: EOS %; Value: 1.2; Range: 0.0-3.0; Units: %; Status: F Test: BASO %; Value: 0.3; Range: 0.0-1.0; Units: %; Status: F Test: LARGE UNSTAINED CELL %; Value: 2.0; Range: 0.0-4.0; Units: %; Status: F Test: NEUTROPHILS #; Value: 5.6; Range: 1.8-7.7; Units: K/mm3; Status: F Test: LYMPH #; Value: 2.2; Range: 1.5-6.5; Units: K/mm3; Status: F Test: MONO #; Value: 0.6; Range: 0.0-0.8; Units: K/mm3; Status: F Test: EOS #; Value: 0.1; Range: 0.0-0.50; Units: K/mm3; Status: F Test: BASO #; Value: 0.0; Range: 0.0-0.2; Units: K/mm3; Status: F Test: LARGE UNSTAINED CELL #; Value: 0.2; Range: 0.0-0.4; Units: K/mm3; Status: F Lab Order: Complete Comphrensive Metabolic; SPEC'M 12/11/16 21:26 Test: GLUCOSE, FASTING; Value: 95; Range: 70-105; Units: MG/DL; Status: F Test: BLOOD UREA NITROGEN; Value: 18; Range: 7-18; Units: MG/DL; Status: F Test: CREATININE FOR GFR; Value: 0.89; Range: 0.70-1.30; Units: MG/DL; Status: F Test: GLOMERULAR FILTRATION RATE; Value: > 60.0; Range: >60; Status: F Test: SODIUM LEVEL; Value: 143; Range: 136-145; Units: MEQ/L; Status: F Test: POTASSIUM SERUM; Value: 3.8; Range: 3.5-5.1; Units: MEQ/L; Status: F Test: CHLORIDE LEVEL; Value: 106; Range: 98-107; Units: MEQ/L; Status: F Test: CARBON DIOXIDE LEVEL; Value: 28; Range: 21-32; Units: MEQ/L; Status: F Test: ANION GAP; Value: 9; Range: 8-16; Units: MEQ/L; Status: F Test: CALCIUM LEVEL; Value: 9.2; Range: 8.5-10.1; Units: MG/DL; Status: F Test: AST/SGOT; Value: 24; Range: 15-37; Units: U/L; Status: F Test: ALT/SGPT; Value: 32; Range: 12-78; Units: U/L; Status: F Test: ALKALINE PHOSPHATASE; Value: 100; Range: 45-117; Units: U/L; Status: F Test: BILIRUBIN,TOTAL; Value: 0.4; Range: 0.2-1.0; Units: MG/DL; Status: F Test: TOTAL PROTEIN; Value: 7.3; Range: 6.4-8.2; Units: GM/DL; Status: F Test: ALBUMIN; Value: 4.1; Range: 3.2-5.2; Units: GM/DL; Status: F Test: ALBUMIN/GLOBULIN RATIO; Value: 1.28; Range: 1.00-1.93; Status: F Test Note: ; Units are mL/min/1.73 m2 Chronic Kidney Disease Staging per NKF: Stage I & II GFR >=60 Normal to Mildly Decreased Stage III GFR 30-59 Moderately Decreased Stage IV GFR 15-29 Severely Decreased Stage V GFR <15 Very Little GFR Left ESRD GFR <15 on BUTTER FAT TESTER Lab Order: Amylase; [facility] 12/11/16:26 Test: AMYLASE; Value: 70; Range: 25-115; Units: U/L; Status: F Lab Order: Lipase; [facility] 12/11/16 21:26 Test: LIPASE; Value: 175; Range: 73-393; Units: U/L; Status: F Lab Order: CRP; [facility] 12/11/16 21: Test: C REACTIVE PROTEIN QUANTITATIV; Value: < 0.30; Range: 0.00-0.30; Units: MG/DL; Status: F Lab Order: ESR; [facility] 12/11/16 21:26 Test: ERYTHROCYTE SEDIMENTATION RATE; Value: 4; Range: 0-15; Units: mm/hr; Status: F Lab Order: Cardiac Injury Profile; [facility] 12/11/16 21:26 Test: CPK CREATINE PHOSPHOKINASE; Value: 381; Range: 39-308; Abnormal: Above high normal; Units: U/L; Status: F Test: CK-MB VALUE MASS; Value: 3.8; Range: 0.0-3.6; Abnormal: Above high normal; Units: NG/ML; Status: F Test: MB/CK RELATIVE INDEX; Value: 0.99; Range: < OR =4; Status: F Test Note: ; DIAGNOSIS CRITERIA MMB ng/ml Relative Index (RI) NON-AMI < or = 5 N/A CINTRON ZONE > 5 < or = 4 AMI > 5 > 4 Lab Order: TROPONIN; SPEC'M 12/11/16 21:26 Test: TROPONIN I; Value: < 0.02; Range: < 0.10; Units: NG/ML; Status: F Test Note: ; Troponin I Reference Interval for Siemens Alkymos LOCI: 99th Percentile= 0.00-0.045 ng/ml Risk Stratification: <= 0.10 ng/ml Decreased Risk for Adverse Clinical Events. 0.10-1.50 ng/ml Increased Risk for Adverse Clinical Events. Evaluation of additional criterion and/or repeat testing in 2-6 hours is suggested to rule out myocardial damage. >= 1.50 ng/ml Indicative of Myocardial Injury. Radiology Order: CT ABD & PELVIS WITH CONTRAST Test: CT ABD & PELVIS WITH CONTRAST REASON FOR EXAMINATION: Abdomen Pain; ; CLINICAL HISTORY: Abdominal pain.; TECHNIQUE: Multiple axial, sagittal and coronal CT images were obtained through the abdomen and pelvi; s after administration of intravenous contrast material.; COMMENTS: Compared to 08/22/16 study.; The liver is of uniform attenuation without mass or defect. There is no intra or extrahepatic biliary; ductal dilatation. The spleen is normal. The gallbladder is within normal limits. The pancreas is of; normal contour and attenuation characteristics. There is no evidence of adrenal mass.; Both kidneys demonstrate prompt and equal nephrograms. The kidneys are normal in size, shape and conf; iguration. There is no evidence of renal or ureteral mass. No renal or ureteral calculi are identifie; d. There is no hydroureter or hydronephrosis.; No evidence for appendicitis. There is wall thickening noted involving all small bowel segments comp; atible with enteritis.. No evidence for small or large bowel obstruction. There is no evidence of abd; ominal ascites or lymphadenopathy.; There is no evidence of intrinsic or extrinsic bladder mass. There is no pelvic ascites or lymphadeno; brian.; Images of the lung bases show no evidence of pleural or parenchymal mass. There are no pleural effusi; ons.; The bony structures are free of lytic or blastic lesions.; IMPRESSION:; Enteritis as above. Some progression since the prior study. Infectious and inflammatory etiologies; (including Crohn's and Celiac disease) are considered. Consider consultation with GI service.; Thank you for your kind referral of this patient.; ; Outcome: 12/12 01:13 Discharge ordered by Provider. gk1 01:29 CT Study completed. Property :Personal belongings accompany Pt. tm5 01:33 Discharge Assessment: patient administered narcotics - yes. Pt provided with safe tm5 discharge. 01:43 The following High Risk Discharge criteria are identified: None. Discharged to home tm5 ambulatory, with parent. Condition: good Condition: stable Condition: improved. Discharge instructions given to patient, parents Instructed on discharge instructions, follow up and referral plans. medication usage, no driving heavy equipment, Demonstrated understanding of instructions, medications, Pt was receptive of discharge instructions/ teaching. Prescriptions given X 2. 01:43 Patient left the ED. tm5 Signatures: Dispatcher [employer] EDMS Mynor Do, DO DO mm11 Vika Tinsley, LOADER UNLOADER LOADER UNLOADER ar3 Federica Escobar, LOADER UNLOADER LOADER UNLOADER ct3 Josee Weber, RN RN ttb Deborah Son jp5 Tadeo Rush, LOADER UNLOADER LOADER UNLOADER mdr Linus Vences, DO DO gk1 Ashley Lira,MINGO RN tm5 Mynor Bui RN mgs MTDD
--- NOTE | 2016-12-12 08:31 | ECGEPIP ---
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
--- NOTE | 2016-12-14 02:44 | EDDOCDS ---
Physician Documentation [facility] Name: Mynor Chambers Age: 21 yrs Sex: Male : 1995 Arrival Date: 12/11/2016 Time: 20:49 Bed 10 Private MD: Mehran Reyna E. Disposition: 12/12 01:19 I have independently interviewed and examined the patient, and I agree with the mm11 investigation, diagnosis and treatment plan as documented by the Resident. Disposition: 12/12/16 01:13 Discharged to Home/Self Care. Impression: Other abdominal pain, Unspecified abdominal pain, Generalized abdominal pain, Vomiting. - Condition is Stable. - Discharge Instructions: Abdominal Pain, Adult, Nausea and Vomiting, Nausea and Vomiting, [id number], Abdominal Pain, Adult, [id number]. - Prescriptions for Percocet 5- 325 mg Oral Tablet - take 1 tablet by ORAL route every 6 hours As needed MDD: 4 tabs; 20 tablet. promethazine 25 mg Oral Tablet - take 1 tablet by ORAL route every 6 hours As needed; 12 tablet. - Medication Reconciliation, Local Pharmacy Hours form. - Follow up: Mehran Reyna MD; When: 1 week; Reason: Recheck today's complaints, Continuance of care. - Problem is chronic. - Symptoms have improved. - Notes: Can take zofran and phenergan at night to help with nausea and sleep. Will give temporary supply of percocet for pain to be taken as needed. Please follow up with PCP Dr. Mehran Reyna in 1 week. Historical: - Allergies: no known allergies; - Home Meds: 1. pantoprazole 40 mg oral TbEC 1 tab 2 times per day (Last dose: 12/11/2016 08:00) 2. sucralfate 1 gram Oral tab three times a day (Last dose: 12/11/2016 08:00) 3. Paxil 20 mg Oral tab 1 tab once daily (Last dose: 12/11/2016 08:00) 4. dicyclomine 20 mg Oral tab 3 times per day (Last dose: 12/11/2016 08:00) - PMHx: Anxiety; Cycling Vomiting Syndrome; GERD; ''Rupture esophagus''; ulcers; - PSHx: Fractured right hip; - Social history: Smoking status: Patient states was never smoker of tobacco. Patient uses street drugs, marijuana, Patient/guardian denies using alcohol, No barriers to communication noted, The patient speaks fluent Moroccan, Speaks appropriately for age. - Family history: Not pertinent. - : The pt / caregiver states he / she is not on anticoagulants. Home medication list is obtained from the patient, family members, [employer] import data. - Exposure Risk Screening:: None identified. Vital Signs: 12/11 20:52 BP 128 / 63; Pulse 81; Resp 18; Temp 97.1(O); Pulse Ox 98% on R/A; Weight 68.04 kg / ct3 150 lbs (R); Height 5 ft. 11 in. (180.34 cm) (R); Pain 10/10; 21:24 BP 134 / 75 (auto/); tm5 21:25 Pulse 68 MON; Resp 20 S; Pulse Ox 97% on R/A; Pain 10/10; tm5 21:54 BP 120 / 75 (auto/); tm5 21:54 Pulse 68 MON; Resp 20 S; Pulse Ox 98% on R/A; Pain 10/10; tm5 22:24 BP 122 / 81 (auto/); tm5 22:24 Pulse 66 MON; Resp 16 S; Pulse Ox 94% on R/A; Pain 0/10; tm5 22:39 BP 123 / 56; Pulse 69; Resp 20; Pulse Ox 98% on R/A; Pain 2/10; tm5 22:54 BP 127 / 71 (auto/); tm5 22:54 Pulse 66 MON; Pulse Ox 97% ; tm5 23:24 BP 118 / 64 (auto/); tm5 23:24 Pulse 68 MON; Resp 18 S; Pulse Ox 97% on R/A; Pain 0/10; tm5 12/12 01:29 BP 117 / 68; Pulse 65; Resp 18; Temp 98.1(O); Pulse Ox 98% on R/A; Pain 0/10; tm5 12/11 20:52 Body Mass Index 20.92 (68.04 kg, 180.34 cm) ct3 MDM: 12/11 22:04 [facility] Payment Agreement was scanned into [employer] and attached to record. jp5 22:04 Financial registration complete. jp5 22:05 IV Saline Lock ordered. gk1 22:05 LR Solution 1000 ml IV at bolus once ordered. gk1 22:05 Dilaudid - HYDROmorphone 1 mg IVP once ordered. gk1 22:06 ECG WITH READING ER PHYS+CARDIAG ordered. EDMS 22:06 New Client Banking Services Clerk ordered. gk1 22:07 CBC with Diff Ordered. EDMS 22:07 Complete Comphrensive Metabolic Ordered. EDMS 22:07 Amylase Ordered. EDMS 22:07 Lipase Ordered. EDMS 22:07 CRP Ordered. EDMS 22:07 ESR Ordered. EDMS 22:07 Cardiac Injury Profile Ordered. EDMS 22:21 CT ABD & PELVIS WITH CONTRAST Ordered. EDMS 22:26 TROPONIN Ordered. EDMS 22:30 Ondansetron 4 mg IVP once ordered. gk1 23:12 Promethazine 25 mg IVP once; dilute and administer 30-60 minutes ordered. 1 02 00:52 oxyCODONE-acetaminophen 4 pack 5 mg-325 mg 1 packets PO once; Dispense with pt, take as gk1 per instruction on package ordered. 00:53 CBC with Diff Reviewed. gk1 00:53 Cardiac Injury Profile Reviewed. gk1 00:53 Complete Comphrensive Metabolic Reviewed. gk1 00:53 Amylase Reviewed. gk1 00:53 Lipase Reviewed. gk1 00:53 CRP Reviewed. gk1 00:53 ESR Reviewed. gk1 00:53 TROPONIN Reviewed. gk1 00:53 CT ABD & PELVIS WITH CONTRAST Reviewed. gk1 13:29 T-Sheet-- Draft Copy was scanned into [employer] and attached to record. gb 13:29 ECG/EKG was scanned into [employer] and attached to record. gb 13:30 Radiology Report was scanned into [employer] and attached to record. gb Administered Medications: 12/11 22:12 Drug: LR 1000 ml [lactated ringers intravenous solution] Route: IV; Rate: bolus; Site: tm5 left hand; 23:45 Follow up: IV Status: Completed infusion; IV Intake: 1000ml tm5 22:12 Drug: Dilaudid - HYDROmorphone 1 mg [hydromorphone 1 mg/mL injection syringe (1 mL)] tm5 Route: IVP; Site: left hand; 22:39 Follow up: BP 123 / 56; Pulse 69 bpm; Resp 20 bpm; Pulse Ox 98% RA; Pain 2/10 Adult; tm5 Response: No Adverse Reaction; Pain is decreased 22:38 Drug: Ondansetron 4 mg [ondansetron HCl 2 mg/mL intravenous solution (2 mL)] Route: tm5 IVP; Site: left hand; 23:13 Follow up: Response: Nausea is unchanged; No Adverse Reaction tm5 23:21 Drug: Promethazine 25 mg [promethazine 25 mg/mL injection solution (1 mL)] {Note: tm5 administered in 50cc NS over 30 minutes IVPB.} Route: IVP; Site: left hand; 23:45 Follow up: Response: Nausea is resolved; No Adverse Reaction tm5 02 01:03 Drug: oxyCODONE-acetaminophen 4 pack 1 packets [oxycodone-acetaminophen 5 mg-325 mg tm5 tablet (1 tabs)] {Co-Signature: mgs (Mynor Bui RN).} Route: PO; 01:04 Follow up: Response: Med's dispensed home; meds provided to pt's mother for at home use tm5 for pain control Signatures: Dispatcher [employer] EDMS Nitza Oneal, Reg Reg gb Mynor Do DO DO mm11 Josee Weber, RN RN delonb Deborah Son jp5 Linus Vences DO DO gk1 Ashley Lira,MINGO RN tm5 Mynor Bui RN mgs The chart was reviewed and I authenticate all verbal orders and agree with the evaluation and treatment provided.Corrections: (The following items were deleted from the chart) 12/11 22:21 22:06 CT Abdomen with contrast+CT ordered. EDMS EDMS 22:24 22:21 TROPONIN+LAB ordered. EDMS EDMS Attachments: 22:04 [facility] Payment Agreement jp5 12/12 13:29 T-Sheet-- Draft Copy gb 13:29 ECG/EKG gb Chart Complete MTDD
--- NOTE | 2016-12-14 02:44 | EDDOCDS ---
Physician Documentation [facility] Name: Mynor Chambers Age: 21 yrs Sex: Male : 1995 Arrival Date: 12/11/2016 Time: 20:49 Bed 10 Private MD: Mehran Reyna E. Disposition: 12/12 01:19 I have independently interviewed and examined the patient, and I agree with the mm11 investigation, diagnosis and treatment plan as documented by the Resident. Disposition: 12/12/16 01:13 Discharged to Home/Self Care. Impression: Other abdominal pain, Unspecified abdominal pain, Generalized abdominal pain, Vomiting. - Condition is Stable. - Discharge Instructions: Abdominal Pain, Adult, Nausea and Vomiting, Nausea and Vomiting, [id number], Abdominal Pain, Adult, Curc-ml-Svqa. - Prescriptions for Percocet 5- 325 mg Oral Tablet - take 1 tablet by ORAL route every 6 hours As needed MDD: 4 tabs; 20 tablet. promethazine 25 mg Oral Tablet - take 1 tablet by ORAL route every 6 hours As needed; 12 tablet. - Medication Reconciliation, Local Pharmacy Hours form. - Follow up: Mehran Reyna MD; When: 1 week; Reason: Recheck today's complaints, Continuance of care. - Problem is chronic. - Symptoms have improved. - Notes: Can take zofran and phenergan at night to help with nausea and sleep. Will give temporary supply of percocet for pain to be taken as needed. Please follow up with PCP Dr. Mehran Reyna in 1 week. Historical: - Allergies: no known allergies; - Home Meds: 1. pantoprazole 40 mg oral TbEC 1 tab 2 times per day (Last dose: 12/11/2016 08:00) 2. sucralfate 1 gram Oral tab three times a day (Last dose: 12/11/2016 08:00) 3. Paxil 20 mg Oral tab 1 tab once daily (Last dose: 12/11/2016 08:00) 4. dicyclomine 20 mg Oral tab 3 times per day (Last dose: 12/11/2016 08:00) - PMHx: Anxiety; Cycling Vomiting Syndrome; GERD; ''Rupture esophagus''; ulcers; - PSHx: Fractured right hip; - Social history: Smoking status: Patient states was never smoker of tobacco. Patient uses street drugs, marijuana, Patient/guardian denies using alcohol, No barriers to communication noted, The patient speaks fluent [place], Speaks appropriately for age. - Family history: Not pertinent. - : The pt / caregiver states he / she is not on anticoagulants. Home medication list is obtained from the patient, family members, [employer] import data. - Exposure Risk Screening:: None identified. Vital Signs: 12/11 20:52 BP 128 / 63; Pulse 81; Resp 18; Temp 97.1(O); Pulse Ox 98% on R/A; Weight 68.04 kg / ct3 150 lbs (R); Height 5 ft. 11 in. (180.34 cm) (R); Pain 10/10; 21:24 BP 134 / 75 (auto/); tm5 21:25 Pulse 68 MON; Resp 20 S; Pulse Ox 97% on R/A; Pain 10/10; tm5 21:54 BP 120 / 75 (auto/); tm5 21:54 Pulse 68 MON; Resp 20 S; Pulse Ox 98% on R/A; Pain 10/10; tm5 22:24 BP 122 / 81 (auto/); tm5 22:24 Pulse 66 MON; Resp 16 S; Pulse Ox 94% on R/A; Pain 0/10; tm5 22:39 BP 123 / 56; Pulse 69; Resp 20; Pulse Ox 98% on R/A; Pain 2/10; tm5 22:54 BP 127 / 71 (auto/); tm5 22:54 Pulse 66 MON; Pulse Ox 97% ; tm5 23:24 BP 118 / 64 (auto/); tm5 23:24 Pulse 68 MON; Resp 18 S; Pulse Ox 97% on R/A; Pain 0/10; tm5 12/12 01:29 BP 117 / 68; Pulse 65; Resp 18; Temp 98.1(O); Pulse Ox 98% on R/A; Pain 0/10; tm5 12/11 20:52 Body Mass Index 20.92 (68.04 kg, 180.34 cm) ct3 MDM: 12/11 22:04 [facility] Payment Agreement was scanned into mymission2 and attached to record. jp5 22:04 Financial registration complete. jp5 22:05 IV Saline Lock ordered. gk1 22:05 LR Solution 1000 ml IV at bolus once ordered. gk1 22:05 Dilaudid - HYDROmorphone 1 mg IVP once ordered. gk1 22:06 ECG WITH READING ER PHYS+CARDIAG ordered. EDMS 22:06 Maintenance Technician ordered. gk1 22:07 CBC with Diff Ordered. EDMS 22:07 Complete Comphrensive Metabolic Ordered. EDMS 22:07 Amylase Ordered. EDMS 22:07 Lipase Ordered. EDMS 22:07 CRP Ordered. EDMS 22:07 ESR Ordered. EDMS 22:07 Cardiac Injury Profile Ordered. EDMS 22:21 CT ABD & PELVIS WITH CONTRAST Ordered. EDMS 22:26 TROPONIN Ordered. EDMS 22:30 Ondansetron 4 mg IVP once ordered. gk1 23:12 Promethazine 25 mg IVP once; dilute and administer 30-60 minutes ordered. 1 02 00:52 oxyCODONE-acetaminophen 4 pack 5 mg-325 mg 1 packets PO once; Dispense with pt, take as gk1 per instruction on package ordered. 00:53 CBC with Diff Reviewed. gk1 00:53 Cardiac Injury Profile Reviewed. gk1 00:53 Complete Comphrensive Metabolic Reviewed. gk1 00:53 Amylase Reviewed. gk1 00:53 Lipase Reviewed. gk1 00:53 CRP Reviewed. gk1 00:53 ESR Reviewed. gk1 00:53 TROPONIN Reviewed. gk1 00:53 CT ABD & PELVIS WITH CONTRAST Reviewed. gk1 13:29 T-Sheet-- Draft Copy was scanned into mymission2 and attached to record. gb 13:29 ECG/EKG was scanned into mymission2 and attached to record. gb 13:30 Radiology Report was scanned into mymission2 and attached to record. gb Administered Medications: 12/11 22:12 Drug: LR 1000 ml [lactated ringers intravenous solution] Route: IV; Rate: bolus; Site: tm5 left hand; 23:45 Follow up: IV Status: Completed infusion; IV Intake: 1000ml tm5 22:12 Drug: Dilaudid - HYDROmorphone 1 mg [hydromorphone 1 mg/mL injection syringe (1 mL)] tm5 Route: IVP; Site: left hand; 22:39 Follow up: BP 123 / 56; Pulse 69 bpm; Resp 20 bpm; Pulse Ox 98% RA; Pain 2/10 Adult; tm5 Response: No Adverse Reaction; Pain is decreased 22:38 Drug: Ondansetron 4 mg [ondansetron HCl 2 mg/mL intravenous solution (2 mL)] Route: tm5 IVP; Site: left hand; 23:13 Follow up: Response: Nausea is unchanged; No Adverse Reaction tm5 23:21 Drug: Promethazine 25 mg [promethazine 25 mg/mL injection solution (1 mL)] {Note: tm5 administered in 50cc NS over 30 minutes IVPB.} Route: IVP; Site: left hand; 23:45 Follow up: Response: Nausea is resolved; No Adverse Reaction tm5 02 01:03 Drug: oxyCODONE-acetaminophen 4 pack 1 packets [oxycodone-acetaminophen 5 mg-325 mg tm5 tablet (1 tabs)] {Co-Signature: mgs (Mynor Bui RN).} Route: PO; 01:04 Follow up: Response: Med's dispensed home; meds provided to pt's mother for at home use tm5 for pain control Signatures: Dispatcher [employer] EDMS Nitza Oneal, Reg Reg gb Mynor Do DO DO mm11 Josee Weber, RN RN delonb Deborah Son jp5 Linus Vences DO DO gk1 Ashley Lira,MINGO RN tm5 Mynor Bui RN mgs The chart was reviewed and I authenticate all verbal orders and agree with the evaluation and treatment provided.Corrections: (The following items were deleted from the chart) 12/11 22:21 22:06 CT Abdomen with contrast+CT ordered. EDMS EDMS 22:24 22:21 TROPONIN+LAB ordered. EDMS EDMS Attachments: 22:04 [facility] Payment Agreement jp5 12/12 13:29 T-Sheet-- Draft Copy gb 13:29 ECG/EKG gb Chart Complete MTDD
--- NOTE | 2016-12-14 02:45 | EDDOCDS ---
Nurse's Notes [facility] Name: Rosalie Chambers Age: 21 yrs Sex: Male : 1995 Arrival Date: 12/11/2016 Time: 20:49 Bed 10 Private MD: Mehran Reyna E. Diagnosis: Other abdominal pain;Unspecified abdominal pain;Generalized abdominal pain;Vomiting Presentation: 12/11 20:59 Presenting complaint: Mother states: pt states he has been vomiting for 5 days with mid ttb abd pain, throat pain, headache. States he started vomiting blood today. Mother reports syncope. Adult Sepsis Screening: The patient does not have new or worsening altered mentation. Patient's respiratory rate is less than 22. Systolic blood pressure is greater than 100. Patient has a qSOFA score of 0- Negative Sepsis Screen. Suicide/Homicide risk assessment- the patient denies having any suicidal and/or homicidal ideations and does not present with any other emotional, behavioral or mental health complaints. Status: Patient is not a library services dean or dependent. Transition of care: patient was not received from another setting of care. 20:59 Acuity: DINAH Level 3 ttb 20:59 Method Of Arrival: Walkin/Carried/Asstd ttb Triage Assessment: 21:03 General: Appears distressed, uncomfortable, well nourished, well groomed, Behavior is ttb restless. Pain: Location: mid abd. HIV screening NA for this visit Offered previously. Neurological: Level of Consciousness is awake, alert. Neurological: Reports headache a syncopal episode. Cardiovascular: Chest pain is denied. Respiratory: No deficits noted. Airway is patent Denies cough, shortness of breath. GI: Reports upper abd pain, nausea, vomiting. GI: Reports cramping, diarrhea. Derm: Skin is normal. Historical: - Allergies: no known allergies; - Home Meds: 1. pantoprazole 40 mg oral TbEC 1 tab 2 times per day (Last dose: 12/11/2016 08:00) 2. sucralfate 1 gram Oral tab three times a day (Last dose: 12/11/2016 08:00) 3. Paxil 20 mg Oral tab 1 tab once daily (Last dose: 12/11/2016 08:00) 4. dicyclomine 20 mg Oral tab 3 times per day (Last dose: 12/11/2016 08:00) - PMHx: Anxiety; Cycling Vomiting Syndrome; GERD; ''Rupture esophagus''; ulcers; - PSHx: Fractured right hip; - Social history: Smoking status: Patient states was never smoker of tobacco. Patient uses street drugs, marijuana, Patient/guardian denies using alcohol, No barriers to communication noted, The patient speaks fluent Swedish, Speaks appropriately for age. - Family history: Not pertinent. - : The pt / caregiver states he / she is not on anticoagulants. Home medication list is obtained from the patient, family members, [employer] import data. - Exposure Risk Screening:: None identified. Screenin:28 Screening information is obtained from the patient. Fall risk: No risks identified. tm5 Assistance ADL's: requires no assistance with activities of daily living. Abuse/DV Screen: The patient / caregiver reports he/she is: not in a situation that causes fear, pain or injury. Nutritional screening: No deficits noted. Advance Directives: There is no active DNR order. home support is adequate. Assessment: 21:38 General: Appears ill, Behavior is anxious, cooperative. Pain: Location: abdomen Pain tm5 currently is 10 out of 10 on a pain scale. Quality of pain is described as burning, crampy. Neurological: Level of Consciousness is awake, alert, Oriented to person, place, time. Cardiovascular: Rhythm is sinus rhythm No ectopy. Respiratory: Airway is patent Respiratory effort is even, unlabored, Respiratory pattern is regular, symmetrical, Breath sounds are clear bilaterally. GI: Abdomen is flat, non- distended Bowel sounds present X 4 quads. Abd is soft and non tender X 4 quads. Reports lower abdominal pain, upper abd pain, nausea, vomiting, intolerance of food, intolerance of fluids. : No deficits noted. Derm: Skin is pink, warm & dry. 21:59 General: still awaiting orders for this pt from Resident Vences. tm5 22:39 Reassessment: Patient appears in no apparent distress at this time. Patient states tm5 feeling better. Patient states symptoms have improved. Cardiovascular: Rhythm is sinus rhythm No ectopy. 23:11 General: pt trans[ported back from CT by this RN, complains of Nausea & is asking for tm5 Phenergan, Resident aware of this . 23:53 Reassessment: Patient appears in no apparent distress at this time. Patient states tm5 feeling better. Patient states symptoms have improved. General: pt with eyes closed, snoring respirations heard, no s/s of any distress. Cardiovascular: Rhythm is regular. 12/12 01:29 Reassessment: Patient appears in no apparent distress at this time. Patient states tm5 feeling better. Patient states symptoms have improved. pt had to be awakened for discharge . Vital Signs: 12/11 20:52 BP 128 / 63; Pulse 81; Resp 18; Temp 97.1(O); Pulse Ox 98% on R/A; Weight 68.04 kg (R); ct3 Height 5 ft. 11 in. (180.34 cm) (R); Pain 10/10; 21:24 BP 134 / 75 (auto/); tm5 21:25 Pulse 68 MON; Resp 20 S; Pulse Ox 97% on R/A; Pain 10/10; tm5 21:54 BP 120 / 75 (auto/); tm5 21:54 Pulse 68 MON; Resp 20 S; Pulse Ox 98% on R/A; Pain 10/10; tm5 22:24 BP 122 / 81 (auto/); tm5 22:24 Pulse 66 MON; Resp 16 S; Pulse Ox 94% on R/A; Pain 0/10; tm5 22:39 BP 123 / 56; Pulse 69; Resp 20; Pulse Ox 98% on R/A; Pain 2/10; tm5 22:54 BP 127 / 71 (auto/); tm5 22:54 Pulse 66 MON; Pulse Ox 97% ; tm5 23:24 BP 118 / 64 (auto/); tm5 23:24 Pulse 68 MON; Resp 18 S; Pulse Ox 97% on R/A; Pain 0/10; tm5 12/12 01:29 BP 117 / 68; Pulse 65; Resp 18; Temp 98.1(O); Pulse Ox 98% on R/A; Pain 0/10; tm5 12/11 20:52 Body Mass Index 20.92 (68.04 kg, 180.34 cm) ct3 Vitals: 12/11 20:52 Log In Time: December 11, 2016 at 20:50. ct3 20:52 RN notified that patient meets Red Flag criteria. ct3 ED Course: 20:51 Patient visited by Federica Escobar PCA. ct3 20:51 Mehran Reyna is Private Physician. ct3 20:51 Patient moved to Waiting ct3 20:56 Patient visited by Federica Escobar PCA. ct3 20:56 Patient moved to Pre RCE ct3 20:57 Irina BenjaminRN is Primary Nurse. ttb 20:57 Patient moved to 10 ttb 21:02 Triage Initiated ttb 21:05 Patient visited by Josee Weber RN. ttb 21:17 Linus Vences DO is PHCP. gk1 21:17 Rosalie Do DO is Attending Physician. gk1 21:29 Awaiting ED physician evaluation. tm5 21:29 Inserted saline lock: 20 gauge in left hand and blood collected. The patient tolerated tm5 the procedure well. 21:29 Missed attempts: 18 gauge X 1 in left antecubital area. tm5 21:29 Labs drawn. (by ED staff). Sent per order to lab. tm5 21:37 Patient visited by Ashley Lira RN. tm5 21:39 Patient visited by Rosalie Do DO. mm11 21:46 Patient visited by Ashley Lira RN. tm5 21:46 ED physician to see patient. tm5 21:59 Patient visited by Ashley Lira RN. tm5 22:02 Patient visited by Linus Vences DO. gk1 22:02 Patient visited by Linus Vences DO. gk1 22:04 [facility] Payment Agreement was scanned into [employer] and attached to record. jp5 22:16 Patient visited by Tadeo Rush PCA. mdr 22:16 EKG done. (by ED staff). Reviewed by Rosalie Do DO. mdr 22:46 Primary Nurse role handed off by Irina Benjamin,RN ar3 22:58 Patient visited by Ashley Lira RN. tm5 22:[address] tm5 23:11 Patient visited by Ashley Lira RN. tm5 23:11 Patient moved back from CT. tm5 23:59 Patient visited by Ashley Lira RN. tm5 12/12 00:18 CT ABD & PELVIS WITH CONTRAST Returned. EDMS 00:54 Patient visited by Ashley Lira RN. tm5 01:10 Mehran Reyna MD is Referral Physician. gk1 01:28 Patient visited by Ashley Lira RN. tm5 01:29 The patient / caregiver is instructed regarding the plan of care and ED course. tm5 01:29 Discontinued lock intact, bleeding controlled, pressure dressing applied, No tm5 redness/swelling at site. No procedures done that require assistance. 01:43 Patient visited by Ashley Lira RN. tm5 08:34 EKG-ADULT Returned. EDMS 13:29 T-Sheet-- Draft Copy was scanned into [employer] and attached to record. gb 13:29 ECG/EKG was scanned into [employer] and attached to record. gb 13:30 Radiology Report was scanned into [email or web address] and attached to record. gb Administered Medications: 12/11 22:12 Drug: LR 1000 ml [lactated ringers intravenous solution] Route: IV; Rate: bolus; Site: tm5 left hand; 23:45 Follow up: IV Status: Completed infusion; IV Intake: 1000ml tm5 22:12 Drug: Dilaudid - HYDROmorphone 1 mg [hydromorphone 1 mg/mL injection syringe (1 mL)] tm5 Route: IVP; Site: left hand; 22:39 Follow up: BP 123 / 56; Pulse 69 bpm; Resp 20 bpm; Pulse Ox 98% RA; Pain /10 Adult; tm5 Response: No Adverse Reaction; Pain is decreased 22:38 Drug: Ondansetron 4 mg [ondansetron HCl 2 mg/mL intravenous solution (2 mL)] Route: tm5 IVP; Site: left hand; 23:13 Follow up: Response: Nausea is unchanged; No Adverse Reaction tm5 23:21 Drug: Promethazine 25 mg [promethazine 25 mg/mL injection solution (1 mL)] {Note: tm5 administered in 50cc NS over 30 minutes IVPB.} Route: IVP; Site: left hand; 23:45 Follow up: Response: Nausea is resolved; No Adverse Reaction tm5 12/12 01:03 Drug: oxyCODONE-acetaminophen 4 pack 1 packets [oxycodone-acetaminophen 5 mg-325 mg tm5 tablet (1 tabs)] {Co-Signature: mgs (Rosalie Bui RN).} Route: PO; 01:04 Follow up: Response: Med's dispensed home; meds provided to pt's mother for at home use tm5 for pain control Intake: 12/11 23:45 IV: 1000.00ml; Total: 1000.00ml. tm5 Order Results: Lab Order: CBC with Diff; SPEC'M 12/11/16 21:26 Test: WHITE BLOOD COUNT; Value: 8.5; Range: 4.0-10.0; Units: K/mm3; Status: F Test: RED BLOOD COUNT; Value: 4.63; Range: 4.30-6.10; Units: M/mm3; Status: F Test: HEMOGLOBIN; Value: 14.5; Range: 14.0-18.0; Units: g/dl; Status: F Test: HEMATOCRIT; Value: 41.3; Range: 42.0-52.0; Abnormal: Below low normal; Units: %; Status: F Test: MEAN CORPUSCULAR VOLUME; Value: 89.1; Range: 80.0-96.0; Units: fl; Status: F Test: MEAN CORPUSCULAR HEMOGLOBIN; Value: 31.2; Range: 27.0-33.0; Units: pg; Status: F Test: MEAN CORPUSCULAR HGB CONC; Value: 35.1; Range: 32.0-36.5; Units: g/dl; Status: F Test: RED CELL DISTRIBUTION WIDTH; Value: 12.3; Range: 11.5-14.5; Units: %; Status: F Test: PLATELET COUNT, AUTOMATED; Value: 328; Range: 150-450; Units: k/mm3; Status: F Test: NEUTROPHILS %; Value: 66.3; Range: 36.0-66.0; Abnormal: Above high normal; Units: %; Status: F Test: LYMPH %; Value: 23.5; Range: 24.0-44.0; Abnormal: Below low normal; Units: %; Status: F Test: MONO %; Value: 6.8; Range: 0.0-5.0; Abnormal: Above high normal; Units: %; Status: F Test: EOS %; Value: 1.2; Range: 0.0-3.0; Units: %; Status: F Test: BASO %; Value: 0.3; Range: 0.0-1.0; Units: %; Status: F Test: LARGE UNSTAINED CELL %; Value: 2.0; Range: 0.0-4.0; Units: %; Status: F Test: NEUTROPHILS #; Value: 5.6; Range: 1.8-7.7; Units: K/mm3; Status: F Test: LYMPH #; Value: 2.2; Range: 1.5-6.5; Units: K/mm3; Status: F Test: MONO #; Value: 0.6; Range: 0.0-0.8; Units: K/mm3; Status: F Test: EOS #; Value: 0.1; Range: 0.0-0.50; Units: K/mm3; Status: F Test: BASO #; Value: 0.0; Range: 0.0-0.2; Units: K/mm3; Status: F Test: LARGE UNSTAINED CELL #; Value: 0.2; Range: 0.0-0.4; Units: K/mm3; Status: F Lab Order: Complete Comphrensive Metabolic; SPEC'M 12/11/16 21:26 Test: GLUCOSE, FASTING; Value: 95; Range: 70-105; Units: MG/DL; Status: F Test: BLOOD UREA NITROGEN; Value: 18; Range: 7-18; Units: MG/DL; Status: F Test: CREATININE FOR GFR; Value: 0.89; Range: 0.70-1.30; Units: MG/DL; Status: F Test: GLOMERULAR FILTRATION RATE; Value: > 60.0; Range: >60; Status: F Test: SODIUM LEVEL; Value: 143; Range: 136-145; Units: MEQ/L; Status: F Test: POTASSIUM SERUM; Value: 3.8; Range: 3.5-5.1; Units: MEQ/L; Status: F Test: CHLORIDE LEVEL; Value: 106; Range: 98-107; Units: MEQ/L; Status: F Test: CARBON DIOXIDE LEVEL; Value: 28; Range: 21-32; Units: MEQ/L; Status: F Test: ANION GAP; Value: 9; Range: 8-16; Units: MEQ/L; Status: F Test: CALCIUM LEVEL; Value: 9.2; Range: 8.5-10.1; Units: MG/DL; Status: F Test: AST/SGOT; Value: 24; Range: 15-37; Units: U/L; Status: F Test: ALT/SGPT; Value: 32; Range: 12-78; Units: U/L; Status: F Test: ALKALINE PHOSPHATASE; Value: 100; Range: 45-117; Units: U/L; Status: F Test: BILIRUBIN,TOTAL; Value: 0.4; Range: 0.2-1.0; Units: MG/DL; Status: F Test: TOTAL PROTEIN; Value: 7.3; Range: 6.4-8.2; Units: GM/DL; Status: F Test: ALBUMIN; Value: 4.1; Range: 3.2-5.2; Units: GM/DL; Status: F Test: ALBUMIN/GLOBULIN RATIO; Value: 1.28; Range: 1.00-1.93; Status: F Test Note: ; Units are mL/min/1.73 m2 Chronic Kidney Disease Staging per NKF: Stage I & II GFR >=60 Normal to Mildly Decreased Stage III GFR 30-59 Moderately Decreased Stage IV GFR 15-29 Severely Decreased Stage V GFR <15 Very Little GFR Left ESRD GFR <15 on INSTALLATION HELPER Lab Order: Amylase; [facility] 12/11/16: Test: AMYLASE; Value: 70; Range: 25-115; Units: U/L; Status: F Lab Order: Lipase; [facility] 12/11/16 21:26 Test: LIPASE; Value: 175; Range: 73-393; Units: U/L; Status: F Lab Order: CRP; [facility] 12/11/16 21:26 Test: C REACTIVE PROTEIN QUANTITATIV; Value: < 0.30; Range: 0.00-0.30; Units: MG/DL; Status: F Lab Order: ESR; [facility] 12/11/16: Test: ERYTHROCYTE SEDIMENTATION RATE; Value: 4; Range: 0-15; Units: mm/hr; Status: F Lab Order: Cardiac Injury Profile; [facility] 12/11/16:26 Test: CPK CREATINE PHOSPHOKINASE; Value: 381; Range: 39-308; Abnormal: Above high normal; Units: U/L; Status: F Test: CK-MB VALUE MASS; Value: 3.8; Range: 0.0-3.6; Abnormal: Above high normal; Units: NG/ML; Status: F Test: MB/CK RELATIVE INDEX; Value: 0.99; Range: < OR =4; Status: F Test Note: ; DIAGNOSIS CRITERIA MMB ng/ml Relative Index (RI) NON-AMI < or = 5 N/A CINTRON ZONE > 5 < or = 4 AMI > 5 > 4 Lab Order: TROPONIN; SPEC'M 12/11/16 21:26 Test: TROPONIN I; Value: < 0.02; Range: < 0.10; Units: NG/ML; Status: F Test Note: ; Troponin I Reference Interval for [employer] [place] LOCI: 99th Percentile= 0.00-0.045 ng/ml Risk Stratification: <= 0.10 ng/ml Decreased Risk for Adverse Clinical Events. 0.10-1.50 ng/ml Increased Risk for Adverse Clinical Events. Evaluation of additional criterion and/or repeat testing in 2-6 hours is suggested to rule out myocardial damage. >= 1.50 ng/ml Indicative of Myocardial Injury. 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; : 1995 Requested By: LINUS RAHMAN; Order Number: [id number] Reading MD: Masha Ferrer; Measurements; Intervals [place]; Rate: 74 P: 58; [place]: 133 QRS: 59; QRSD: 93 T: 50; QT: 361; QTc: 401; Interpretive Statements; SINUS RHYTHM; SIMILAR 11/18/16; Electronically Signed On 12-12-2016 8:31:21 EST by Masha Ferrer; Radiology Order: CT ABD & PELVIS WITH CONTRAST Test: CT ABD & PELVIS WITH CONTRAST REASON FOR EXAMINATION: Abdomen Pain; ; CLINICAL HISTORY: Abdominal pain.; TECHNIQUE: Multiple axial, sagittal and coronal CT images were obtained through the abdomen and pelvi; s after administration of intravenous contrast material.; COMMENTS: Compared to 08/22/16 study.; The liver is of uniform attenuation without mass or defect. There is no intra or extrahepatic biliary; ductal dilatation. The spleen is normal. The gallbladder is within normal limits. The pancreas is of; normal contour and attenuation characteristics. There is no evidence of adrenal mass.; Both kidneys demonstrate prompt and equal nephrograms. The kidneys are normal in size, shape and conf; iguration. There is no evidence of renal or ureteral mass. No renal or ureteral calculi are identifie; d. There is no hydroureter or hydronephrosis.; No evidence for appendicitis. There is wall thickening noted involving all small bowel segments comp; atible with enteritis.. No evidence for small or large bowel obstruction. There is no evidence of abd; ominal ascites or lymphadenopathy.; There is no evidence of intrinsic or extrinsic bladder mass. There is no pelvic ascites or lymphadeno; brian.; Images of the lung bases show no evidence of pleural or parenchymal mass. There are no pleural effusi; ons.; The bony structures are free of lytic or blastic lesions.; IMPRESSION:; Enteritis as above. Some progression since the prior study. Infectious and inflammatory etiologies; (including Crohn's and Celiac disease) are considered. Consider consultation with GI service.; Thank you for your kind referral of this patient.; ; Outcome: 12/12 01:13 Discharge ordered by Provider. gk1 01:29 CT Study completed. Property :Personal belongings accompany Pt. 5 01:33 Discharge Assessment: patient administered narcotics - yes. Pt provided with safe 5 discharge. 01:43 The following High Risk Discharge criteria are identified: None. Discharged to home tm5 ambulatory, with parent. Condition: good Condition: stable Condition: improved. Discharge instructions given to patient, parents Instructed on discharge instructions, follow up and referral plans. medication usage, no driving heavy equipment, Demonstrated understanding of instructions, medications, Pt was receptive of discharge instructions/ teaching. Prescriptions given X 2. 01:43 Patient left the ED. tm5 Signatures: Dispatcher [employer] EDMS Nitza Oneal, Reg Reg gb Rosalie Do DO DO mm11 Vika Tinsley, GENERAL MANAGER GENERAL MANAGER ar3 Federica Escobar, GENERAL MANAGER GENERAL MANAGER ct3 Josee Weber RN RN ttb Deborah Son jp5 Tadeo Rush, GENERAL MANAGER GENERAL MANAGER mdr Linus Vences, DO DO gk1 Ashley Lira,RN RN tm5 Rosalie uBi RN mgs Chart Complete MTDD
== END 2016-12-12 01:43 | disposition home or self-care (01) ==
LOC: M ED 20:49
DX: F41.9 Anxiety disorder, unspecified (principal); G43.A0 Cyclical vomiting, in migraine, not intractable; K21.9 Gastro-esophageal reflux disease without esophagitis; Z79.899 Other long term (current) drug therapy

== ENCOUNTER 2016-12-17 18:33 | Emergency (ER) | payer OTHER | END 2016-12-17 19:03 | disposition left against medical advice (07) | LOC: M ED 18:33 | DX: R11.10 Vomiting, unspecified (principal); Z53.29 Procedure and treatment not carried out because of patient's decision for other reasons ==

== ENCOUNTER 2017-01-31 07:48 | Emergency (ER) | payer MEDICAID, OTHER, SELFPAY ==
[~2017-01-31] VITALS: Ht 180.3 cm; Wt 72.6 kg
[~2017-01-31 07:48] MED LIST changes: -PARO20TA2 PO; +PARO20TA3 PO; -SERT-141 PO; +SERT50TA PO
[2017-01-31] MEDS ORDERED: ONDANSETRON 4MG/2ML VIAL (J2405) IV ONE (08:30)
[2017-01-31 08:47] LABS: MEAN CORPUSCULAR HEMOGLOBIN 31.2 pg (27.0-33.0); MEAN CORPUSCULAR HGB CONC 35.1 g/dl (32.0-36.5); MEAN CORPUSCULAR VOLUME 88.7 fl (80.0-96.0); RED CELL DISTRIBUTION WIDTH 12.3 % (11.5-14.5); WHITE BLOOD COUNT 5.5 K/mm3 (4.0-10.0)
[2017-01-31] MEDS ORDERED: PROMETHAZINE INJ 25 MG/ML VIAL (J2550) IV ONE (09:00)
[2017-01-31] MEDS ORDERED: NS 1,000 ML IV ONE (09:00)
[2017-01-31] MEDS ORDERED: KETOROLAC 30 MG/ML VIAL (J1885) IV ONE (09:00)
[2017-01-31 09:08] LABS: ALBUMIN 4.3 GM/DL (3.2-5.2); ALBUMIN/GLOBULIN RATIO 1.19 (1.00-1.93); ALKALINE PHOSPHATASE 94 U/L (45-117); ALT/SGPT 32 U/L (12-78); ANION GAP 9 MEQ/L (8-16); AST/SGOT 20 U/L (15-37); BLOOD UREA NITROGEN 13 MG/DL (7-18); CALCIUM LEVEL 9.3 MG/DL (8.5-10.1); CARBON DIOXIDE LEVEL 26 MEQ/L (21-32); CHLORIDE LEVEL 104 MEQ/L (98-107); CREATININE FOR GFR 0.95 MG/DL (0.70-1.30); GLOMERULAR FILTRATION RATE > 60.0 (>60); GLUCOSE, FASTING 99 MG/DL (70-105); POTASSIUM SERUM 3.8 MEQ/L (3.5-5.1); SODIUM LEVEL 139 MEQ/L (136-145); TOTAL PROTEIN 7.9 GM/DL (6.4-8.2)
[2017-01-31 09:16] LABS: AMYLASE 52 U/L (25-115)
[2017-01-31] MEDS ORDERED: HYDROmorphone HCL 1 MG/ML SYRINGE (J1170) IV ONE (10:00)
--- NOTE | 2017-01-31 10:14 | REP ---
RIGHT UPPER QUADRANT ULTRASOUND: Real-time sonographic evaluation of the right upper quadrant performed. The gallbladder demonstrates no evidence of intraluminal calculi, wall thickening or pericholecystic fluid. There is no intrahepatic or extrahepatic biliary dilatation, common bile duct measuring 6 mm in diameter. Liver and pancreas demonstrate homogeneous echotexture with no gross mass. Right kidney demonstrates no hydronephrosis or nephrolithiasis with normal size at 10.4 cm in length. IMPRESSION: Negative right upper quadrant ultrasound. Signed by Toi Carolina MD 01/31/2017 04:36 P
--- NOTE | 2017-01-31 10:30 | REP ---
CT ABDOMEN AND PELVIS WITHOUT CONTRAST: CT abdomen and pelvis performed without IV contrast, with sagittal and coronal reconstruction images performed. The visualized lung bases are clear. The liver, gallbladder, spleen, adrenals, pancreas and kidneys are grossly unremarkable. There is no hydronephrosis or nephrolithiasis bilaterally. Abdominal aorta is normal in caliber with no aneurysm. I see no gross adenopathy. There is no free air or free fluid. No gross bowel wall thickening is seen. There are three calcified appendicoliths in the appendix, largest measuring 10 x 4 mm with two others measuring 4 mm in diameter. There is no evidence of acute appendicitis. I see no definite pelvic mass. The urinary bladder is not well distended and not well evaluated. IMPRESSION: Three calcific appendicoliths seen in the appendix without evidence of acute appendicitis. No other acute findings. No evidence of hydronephrosis or nephrolithiasis bilaterally. Signed by Toi Carolina MD 01/31/2017 04:37 P
[2017-01-31] MEDS ORDERED: TAMSULOSIN 0.4 MG CAP PO ONE (13:00)
[2017-01-31] MEDS ORDERED: DICYCLOMINE 10 MG CAP PO ONE (13:00)
[2017-01-31] MEDS ORDERED: PERCOCET 5MG/325MG TAB PO ONE (13:00)
[2017-01-31] MEDS ORDERED: FLOM5CAP PO (13:06)
[2017-01-31] MEDS ORDERED: PROM125TA PO (13:10)
[2017-01-31] MEDS ORDERED: BENT10CA PO (13:10)
[2017-01-31] MEDS ORDERED: PERC5TAB6 PO (13:10)
[2017-01-31 15:52] VITALS: BP 132/69
[2017-02-01] MEDS ORDERED: PROC25SU24 PR (14:22)
== END 2017-01-31 15:55 | disposition home or self-care (01) ==
LOC: M ED 08:47
DX: R31.9 Hematuria, unspecified (principal); K35.2 Acute appendicitis with generalized peritonitis; R10.9 Unspecified abdominal pain; R11.2 Nausea with vomiting, unspecified; F41.9 Anxiety disorder, unspecified; K21.9 Gastro-esophageal reflux disease without esophagitis; K25.9 Gastric ulcer, unspecified as acute or chronic, without hemorrhage or perforation
CPT/HCPCS: 36415; 74176; 76705; 80053; 81001; 82150; 83690; 85027; 87086; 87804; 87880; 96374; 96375; 99284; J1170; J1885; J2405

== ENCOUNTER 2017-02-01 08:41 | Emergency (ER) | payer MEDICAID, OTHER, SELFPAY ==
[~2017-02-01] VITALS: Ht 180.3 cm; Wt 72.6 kg
[~2017-02-01 08:41] MED LIST changes: +BENT10CA PO; +FLOM5CAP PO; +PERC5TAB6 PO
[2017-02-01 09:48] LABS: ANION GAP 4 MEQ/L (8-16); BLOOD UREA NITROGEN 14 MG/DL (7-18); CALCIUM LEVEL 9.1 MG/DL (8.5-10.1); CARBON DIOXIDE LEVEL 31 MEQ/L (21-32); CHLORIDE LEVEL 105 MEQ/L (98-107); CREATININE FOR GFR 0.94 MG/DL (0.70-1.30); GLOMERULAR FILTRATION RATE > 60.0 (>60); GLUCOSE, FASTING 111 MG/DL (70-105); POTASSIUM SERUM 4.1 MEQ/L (3.5-5.1); SODIUM LEVEL 140 MEQ/L (136-145)
[2017-02-01 10:07] LABS: METHADONE URINE NEGATIVE (NEGATIVE)
[2017-02-01] MEDS ORDERED: KETOROLAC 30 MG/ML VIAL (J1885) IV ONE (11:00)
[2017-02-01] MEDS ORDERED: PROMETHAZINE INJ 25 MG/ML VIAL (J2550) IV ONE (11:00)
[2017-02-01] MEDS ORDERED: PROC25SU24 PR (14:22)
[2017-02-01 14:36] VITALS: BP 134/63
[2017-02-02] MEDS ORDERED: AMIT10TA PO (01:20)
[2017-02-02] MEDS ORDERED: ONDA4TAB6 PO (01:20)
[2017-02-02] MEDS ORDERED: PROM25TA PO (01:20)
[2017-02-02] MEDS ORDERED: DICY10CA13 PO (01:20)
[2017-02-02] MEDS ORDERED: SUCR1SUS PO (01:20)
[2017-02-02] MEDS ORDERED: PERC5TAB6 PO (01:20)
== END 2017-02-01 14:39 | disposition home or self-care (01) ==
LOC: M ED 09:40
DX: G43.A0 Cyclical vomiting, in migraine, not intractable (principal); F32.9 Major depressive disorder, single episode, unspecified; F41.9 Anxiety disorder, unspecified; K21.9 Gastro-esophageal reflux disease without esophagitis; F12.10 Cannabis abuse, uncomplicated; Z79.899 Other long term (current) drug therapy; Z88.8 Allergy status to other drugs, medicaments and biological substances
CPT/HCPCS: 80048; 80306; 81001; 96374; 96375; 99284; J1885

== ENCOUNTER 2017-02-01 19:25 | Inpatient (IN) | payer OTHER, SELFPAY ==
[~2017-02-01] VITALS: Ht 180.3 cm; Wt 73.2 kg
[~2017-02-01 19:25] MED LIST changes: +PROC25SU24 PR
[2017-02-01 23:11] LABS: MEAN CORPUSCULAR HEMOGLOBIN 30.7 pg (27.0-33.0); MEAN CORPUSCULAR HGB CONC 34.2 g/dl (32.0-36.5); MEAN CORPUSCULAR VOLUME 89.7 fl (80.0-96.0); RED CELL DISTRIBUTION WIDTH 12.2 % (11.5-14.5); WHITE BLOOD COUNT 6.7 K/mm3 (4.0-10.0)
[2017-02-01] MEDS ORDERED: ONDANSETRON 4 MG TAB (S0181) PO ONE (23:15)
[2017-02-01 23:36] LABS: ALBUMIN 3.9 GM/DL (3.2-5.2); ALKALINE PHOSPHATASE 86 U/L (45-117); ALT/SGPT 26 U/L (12-78); ANION GAP 6 MEQ/L (8-16); AST/SGOT 16 U/L (15-37); BILIRUBIN,DIRECT 0.2 MG/DL (0.0-0.2); BILIRUBIN,TOTAL 0.6 MG/DL (0.2-1.0); BLOOD UREA NITROGEN 13 MG/DL (7-18); CALCIUM LEVEL 8.9 MG/DL (8.5-10.1); CARBON DIOXIDE LEVEL 31 MEQ/L (21-32); CHLORIDE LEVEL 105 MEQ/L (98-107); CREATININE FOR GFR 0.92 MG/DL (0.70-1.30); GLOMERULAR FILTRATION RATE > 60.0 (>60); GLUCOSE, FASTING 84 MG/DL (70-105); METHADONE URINE NEGATIVE (NEGATIVE); POTASSIUM SERUM 3.7 MEQ/L (3.5-5.1); SODIUM LEVEL 142 MEQ/L (136-145); TOTAL PROTEIN 6.9 GM/DL (6.4-8.2)
[2017-02-02] MEDS ORDERED: diphenhydrAMINE 25 MG CAP PO PRN (00:45)
[2017-02-02] MEDS ORDERED: LORazepam 1 MG TAB PO PRN (00:45)
[2017-02-02] MEDS ORDERED: MAALOX 30 ML SUSP *UDC PO PRN (00:45)
[2017-02-02] MEDS ORDERED: MOM 30ML SUSPENSION UDC PO PRN (00:45)
[2017-02-02] MEDS ORDERED: ACETAMINOPHEN TAB 650MG DOSE (2X325MG) PO PRN (00:45)
[2017-02-02] MEDS ORDERED: HALOPERIDOL 5 MG TAB PO PRN (00:45)
[2017-02-02] MEDS ORDERED: traZODone 50 MG TAB PO PRN (00:45)
[2017-02-02 01:00] VITALS: BP 137/72
[2017-02-02] MEDS ORDERED: ONDA4TAB6 PO (01:20)
[2017-02-02] MEDS ORDERED: AMIT10TA PO (01:20)
[2017-02-02] MEDS ORDERED: SUCR1SUS PO (01:20)
[2017-02-02] MEDS ORDERED: PERC5TAB6 PO (01:20)
[2017-02-02] MEDS ORDERED: PROM25TA PO (01:20)
[2017-02-02] MEDS ORDERED: DICY10CA13 PO (01:20)
[2017-02-02] MEDS ORDERED: hydrOXYzine 50 MG TAB PO ONE (01:30)
[2017-02-02] MEDS ORDERED: PROMETHAZINE 25 MG TAB PO PRN (05:45)
[2017-02-02] MEDS ORDERED: ONDANSETRON 4 MG TAB (S0181) PO PRN (05:45)
[2017-02-02] MEDS: PERCOCET 5MG/325MG TAB PO PRN ×2 (06:07→15:20)
[2017-02-02] MEDS: SUCRALFATE 1 GM TAB PO SCH ×2 (08:38→12:00)
[2017-02-02] MEDS: DICYCLOMINE 10 MG CAP PO SCH ×2 (08:38→15:20)
[2017-02-02] MEDS ORDERED: PANTOPRAZOLE 40MG TAB (PROTONIX) PO SCH (09:00)
--- NOTE | 2017-02-02 13:07 | HPEPDOC ---
Medical History and Physical Date of Admission Feb 02, 2017 at 00:31 History and Physical PCP: Dr Reyna ATTENDING: Dr. Tavon Rodriguez HPI: 21yoM admitted to [facility] for THOMAS, being medically examined today. Patient with history of chronic abdominal pain, cyclical vomiting, nausea, poor appetite , headaches and chronic diarrhea. Patient states he is currently following with Dr. Piedra. He states he has chronic pain. Overall his symptoms have been chronic and unchanged according to the patient. The patient was seen 12/11/16 in the emergency department for abdominal pain and vomiting. Again on 01/20 for vomiting and diarrhea. Denies any fevers, chills, VILLALBA, CP, SOB, cough, palpitations, bladder habits. PMHx: Intractable vomiting Cyclical vomiting syndrome. Patient currently following with Dr. Piedra. Previously seen by Dr. Reece. Seen by Dr Catherine ALVARENGA [facility]. GERD Intractable abdominal migraine Chronic abdominal pain HIDA nml with EF 54% MRCP nml 03/14 TTG Nml 01/12 normal total serum porphyrins 01/12 Nml CTAP PSHX: Right acetabulum fracture 2009 EGD/colonoscopy 2015 Dr. Zarate. Normal with random biopsies of the esophagus/ stomach/duodenum. Mildly increased lymphocytes but preserved architecture. SOCHX: Resides in: [place] Marital Status: Single Kids: None Employment: Unemployed Tobacco use: Denies ETOH: Once per week 7-9 drinks Illicit Drugs: Marijuana daily IV Drug Use: Denies Tattoos done unprofessionally: Denies FAMHX: Mother: Alive, well Father: Alive, well Siblings: One sister Alive, well Unexpected deaths due to medical reasons: None. ROS: As noted in HPI, otherwise 11pt ROS of systems reviewed and unremarkable. PE: GEN: 21yoM, appears stated age. Well-nourished, well developed. No acute distress. Alert and oriented x 3. Anxious. HEENT: Normocephalic, atraumatic. Pupils are equal, round, and reactive to light. Extraocular movements are intact. No nystagmus appreciated. Sclera are nonicteric. Conjunctiva without injection. Nose midline. Nasal turbinates without bogginess. EACs both patent BL. TMs both visualized and vizcarra with good cone of light, no bulging or erythema. No facial asymmetry. Moist mucous membranes. Dentition fair. Pharynx pink and moist, no cobblestoning. Neck supple , trachea midline. No lymphadenopathy or thyromegaly appreciated. CHEST: Regular rate and rhythm, +S1, +S2 LUNGS: Clear to auscultation bilaterally. No wheezes, rales, or rhonchi. Breathing appears symmetric and easy. Patient is speaking in full sentences. No accessory muscle use. ABD: Round, soft, non-tender, non-distended. +Bowel sounds throughout. No rebound or guarding. No costovertebral angle tenderness. EXT: Pulses 2+ bilaterally dorsalis pedis and radial. No lower extremity edema appreciated. SKIN: [place], dry, warm. Capillary refill <2sec. No rashes. NEURO: Alert and oriented x 3. Cranial nerves III-XII are intact. No focal deficits appreciated. EK12/11/16 SINUS RHYTHM 74bpm SIMILAR 11/18/16 A&P: 21yoM admitted to [facility] for THOMAS 1. Psych. Plan per Psychiatry. EKG on file. 2. Cyclical vomiting syndrome/chronic abdominal pain. Continue dicyclomine 10 mg by mouth 3 times a day, Zofran ODT 4 mg every 8 as needed promethazine 25 mg every 6 hours as needed and oxycodone 5/325 every 6 hours as needed. 3. GERD. Continue Protonix 40 mg by mouth twice a day, Carafate 1 g before meals at bedtime 4. Follow up with PCP on discharge. 5. History of Intractable abdominal migraine. 6. Substance abuse. Per psychiatry. 7. Request copy of records from recent visit with Dr. Piedra for review. 8. Staff member Ed present throughout exam. Vital Signs Vital Signs Date Time Temp Pulse Resp B/P Pulse Ox O2 Delivery O2 Flow Rate FiO2 02/02/17 06:37 18 02/02/17 01:00 97.8 60 137/72 100 Room Air Laboratory Data Labs 24H Laboratory Tests 2 02/01/17 22:50: Acetaminophen Level < 2.0L, Aspartate Amino Transf (AST/SGOT) 16, Alanine Aminotransferase (ALT/SGPT) 26, Alkaline Phosphatase 86, Total Bilirubin 0.6, Direct Bilirubin 0.2, Albumin 3.9, Albumin/Globulin Ratio 1.30, Anion Gap 6L, Calcium Level 8.9, Ethyl Alcohol Level < 0.003, Glomerular Filtration Rate > 60.0, Salicylates Level < 1.7L, Thyroid Stimulating Hormone (TSH) 2.920, Total Protein 6.9, Urine Amphetamines Screen NEGATIVE, Urine Benzodiazepines Screen NEGATIVE, Urine Opiates Screen POSITIVEH, Urine Barbiturates Screen NEGATIVE, Urine Cannabinoids Screen POSITIVEH, Urine Cocaine Metabolite Screen NEGATIVE, Urine Methadone Screen NEGATIVE, Urine Phencyclidine Screen NEGATIVE CBC/BMP Laboratory Tests 02/01/17 22:50 Red Blood Count 4.58, Mean Corpuscular Volume 89.7, Mean Corpuscular Hemoglobin 30.7, Mean Corpuscular Hemoglobin Concent 34.2, Red Cell Distribution Width 12.2 Home Medications Scheduled Amitriptyline HCl (Amitriptyline HCl) 10 Mg Tab 10 MG PO QHS Dicyclomine HCl (Dicyclomine HCl) 10 Mg Cap 10 MG PO TID Pantoprazole Sodium (Pantoprazole Sodium) 40 Mg Tab 40 MG PO BID Paroxetine Hydrochloride (Paxil) 20 Mg Tab 20 MG PO QHS Sucralfate (Sucralfate) 1 Gm/10 Ml Yoselin 1 GM PO ACHS Scheduled PRN Lorazepam (Ativan) 1 Mg Tab 1 MG PO Q6H PRN PRN ANXIETY/AGITATION Ondansetron (Ondansetron Odt) 4 Mg Tab 4 MG PO Q8H PRN PRN NAUSEA OR VOMITING Oxycodone/Acetaminophen (Percocet 5-325 mg) 1 Tab Tab 1 TAB PO Q6H PRN PRN PAIN Promethazine HCl (Promethazine HCl) 25 Mg Tab 25 MG PO Q6H PRN PRN NAUSEA Allergies Coded Allergies: Metoclopramide (Verified Adverse Reaction, Intermediate, AKATHISIA/ AGITATION, 08/29/16) Laina Lawson Feb 02, 2017 13:07
[2017-02-02] MEDS ORDERED: ONDANSETRON 4 MG ORAL DISINTEGRATING TAB (S0181) PO PRN (13:15)
--- NOTE | 2017-02-02 20:12 | HPEPDOC ---
[facility] History & Physical History and Physical DATE OF ADMISSION: Feb 02, 2017 at 00:31 LEGAL STATUS AT ADMISSION: Voluntary admission CHIEF COMPLAINT: "I went to the ER for vomiting, I've been sick for year and half and they can't figure out what's wrong with me and it's making me anxious and depressed." HISTORY OF THE PRESENT ILLNESS: Patient is a 21-year-old male, who was seen on in the emergency room for anxiety, 02/01/17 for symptoms of depression, and then again on 02/02/17 for symptoms of anxiety and depression, patient indicates symptoms of anxiety and depression are secondary to chronic gastrointestinal condition. Per ER report, patient left ER and returned stating, "I couldn't do it; I got home and my anxiety was too overwhelming. I should've stayed here this morning." Patient also communicated to ER at that time that he has an outpatient behavioral health appointment scheduled for next week and indicated he did not feel he was able to wait another week to see a mental health professional and requested admission to [facility]. Patient indicates symptoms began 7 months ago and since that time he has been "in and out of the hospital all the time for my stomach issues." Patient reports current anxiety level of 6/10, depression 5/10, denies suicidal and homicidal ideation, denies audiovisual hallucinations, denies urge to engage in self-injurious behavior. Patient indicates he has never been suicidal and he has never engaged in self-injurious behavior. Patient reports ongoing physical illness which she says started 1-1/2 years ago and since that time has lost 60 pounds due to vomiting daily and reduced ability to eat due to "burning" discomfort. Patient has history of abdominal pain, cyclical vomiting, nausea, poor appetite, headaches and chronic diarrhea. He is currently under the care of a drug safety specialist, was recently seen in [facility] ER for same symptoms. Patient denies history of discomfort in social settings, denies panic symptoms, denies impulse control or compulsive behavior challenges, denies history of aggression or unsanctioned violence, reports to punching his truck 1 last week out of frustration. Patient denies history of reexperiencing, avoidance, or hypervigilance. Patient denies history of mood lability, hypomania or anjelica symptoms. Patient states he has a healthy appetite, has experienced notable weight loss, states he has "passed out a few times because I get so drained from vomiting." Patient indicates indicates he does not sleep well due to stomach pain, averages one hour per night and adds he is able to nap occasionally. PSYCHIATRIC REVIEW OF SYSTEMS: Affective: Low to moderate depression. Anxiety: Anxious. Trauma: Denies. Psychosis: Denies. Personally: Easily engaged, pleasant, cooperative. PAST PSYCHIATRIC HISTORY: Prior Psychiatric Disorder: Denies. Outpatient Treatment: Has initial appointment scheduled at [facility] next week. Suicidal/Self injurious: Denies. Psychotropic Medication History: Currently being prescribed by PCM: Paxil 20 mg , amitriptyline 10 mg, and Ativan 1 mg PRN anxiety/agitation. ALLERGIES: Please see below. FAMILY PSYCHIATRIC HISTORY: Patient denies SOCIAL HISTORY: Early Relations/development: Born and raised in [place], parents age 17 and has contact with both parents, indicates family is supportive Sibling order: Has one older sister age 24. Paternal relationships: Describes as positive and supportive. Education: High school graduate, college 1.5 years in business administration. 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 Martial: Single, never , no children. Economic: Moved out of mother's home 2 months ago, indicates he plans to move back in due to being too physically ill to work Supports: Indicates family is supportive, speaks with parents daily. Abuse/trauma: Denies history. SUBSTANCE ABUSE HISTORY: Patient states he smokes marijuana daily to address pain and appetite challenges, consumes alcohol 1 time per week, 7-9 beers per episode PAST MEDICAL/SURGICAL HISTORY: Intractable vomiting, cyclical vomiting syndrome , GERD, intractable abdominal migraine, chronic abdominal pain, celiac disease, IBS, blood in urine, states has been evaluated and "might of passed kidney stones," hemorrhoids and esophageal ulcer secondary to vomiting. Right acetabulum fracture 2009. Patient denies history of head injury or seizure 2015 EGD/colonoscopy normal with random biopsies of the esophagus/stomach/ duodenum. Mildly increased lymphocytes but preserved architecture. Labs on admission indicate low HCT and anion gap 12/11/16 EKG sinus rhythm 74 bpm similar 11/18/16 UDS on admission positive for cannabinoids and opiates VITAL SIGNS: B/P 137/72, P 60, R 18, 97.8 MENTAL STATUS EXAMINATION: General appearance: Patient is a 21-year-old male who presents with adequate personal hygiene, dressed in hospital clothing, makes good eye contact, is pleasant and cooperative, ambulates with steady gait, of thin stature, and appears stated age. Speech: Of normal rate, rhythm, volume. Thought processes: Clear, goal-directed. Thought content: Logical and coherent. Abstract reasoning and computation: Adequate. Description of associations: Intact. Description of abnormal or psychotic thoughts: Displays no delusional thinking, denies audiovisual hallucinations, denies obsessions or compulsions. Judgment: Fair. Insight: Fair. Orientation: Person, place, time, situation. Recent and remote memory: Intact. Attention span and concentration: Adequate. Fund of knowledge: Adequate. Mood: "I do have some anxiety and depression, but it's only because my stomach problems and I don't need to be here." Patient appears somewhat anxious and somewhat depressed, no mood lability noted Affect: Constricted, congruent with mood. DIAGNOSES: Unspecified anxiety disorder, rule out dara, rule out disorder due to general medical condition ASSESSMENT: Patient is 21-year-old male who was voluntarily admitted to inpatient unit due to increasing symptoms of anxiety and depression which he indicates are secondary to chronic gastrointestinal condition for which he is under the care of primary care and gastroenterology. Patient indicates he is currently being prescribed psychotropic medication by his PCM, states he does not feel he needs to be in the inpatient environment, denies suicidal and homicidal ideation, denies history of suicidal ideation or suicide attempts, notes he feels being on the inpatient unit is "making my anxiety worse." Patient is observed to be walking the hallways, isolating to self, has not been attending groups. Patient is in behavioral control and appears to be managing symptoms of anxiety and depression and symptoms of GI discomfort. Will monitor patient's response to medications, monitor for side effects and make medication changes/dosing adjustments as requested and tolerated by patient. Will evaluate patient's safety and discharge readiness. Patient indicates he intends to discharge to home with mother, has appointment scheduled with primary care physician for tomorrow, has appointment scheduled for outpatient behavioral health next week, has also been connected with case management services. PROBLEM LIST: Anxiety Depression Ineffective coping Chronic pain INITIAL TREATMENT PLAN: 1. Patient was admitted on a voluntary status. 2. Complete history was obtained. 3. With patients permission, family will be contacted and database will be expanded. 4. Patients medication regimen will be reviewed and changed accordingly. 5. Patient will be provided with protected environment. 6. Patient will be treated with individual, group, and milieu therapies. 7. Patient will receive supportive psych-education. 8. Discharge planning will commence immediately. 9. Outpatient follow-up treatment will be strongly recommended. 10. The initial treatment plan will focus initially on: * Depression. * Anxiety * Risk for suicide ESTIMATED LENGTH OF STAY: 5-7 DAYS. TIME SPENT COUNSELING AND COORDINATING INITIAL CARE: 50 minutes. Laboratory Data 24H Labs Laboratory Tests 2 02/01/17 22:50: Acetaminophen Level < 2.0L, Aspartate Amino Transf (AST/SGOT) 16, Alanine Aminotransferase (ALT/SGPT) 26, Alkaline Phosphatase 86, Total Bilirubin 0.6, Direct Bilirubin 0.2, Albumin 3.9, Albumin/Globulin Ratio 1.30, Anion Gap 6L, Calcium Level 8.9, Ethyl Alcohol Level < 0.003, Glomerular Filtration Rate > 60.0, Salicylates Level < 1.7L, Thyroid Stimulating Hormone (TSH) 2.920, Total Protein 6.9, Urine Amphetamines Screen NEGATIVE, Urine Benzodiazepines Screen NEGATIVE, Urine Opiates Screen POSITIVEH, Urine Barbiturates Screen NEGATIVE, Urine Cannabinoids Screen POSITIVEH, Urine Cocaine Metabolite Screen NEGATIVE, Urine Methadone Screen NEGATIVE, Urine Phencyclidine Screen NEGATIVE CBC/BMP Laboratory Tests 02/01/17 22:50 Red Blood Count 4.58, Mean Corpuscular Volume 89.7, Mean Corpuscular Hemoglobin 30.7, Mean Corpuscular Hemoglobin Concent 34.2, Red Cell Distribution Width 12.2 Medications Scheduled Amitriptyline HCl (Amitriptyline HCl) 10 Mg Tab 10 MG PO QHS pain/sleep ( Reported) Dicyclomine HCl (Dicyclomine HCl) 10 Mg Cap 10 MG PO TID Stomach cramp (Reported ) Pantoprazole Sodium (Pantoprazole Sodium) 40 Mg Tab 40 MG PO BID GERD (Reported ) Paroxetine Hydrochloride (Paxil) 20 Mg Tab 20 MG PO QHS Anxiety/Depression ( Reported) Sucralfate (Sucralfate) 1 Gm/10 Ml Yoselin 1 GM PO ACHS NAUSEA (Reported) Scheduled PRN Lorazepam (Ativan) 1 Mg Tab 1 MG PO Q6H PRN PRN ANXIETY/AGITATION (Reported) Ondansetron (Ondansetron Odt) 4 Mg Tab 4 MG PO Q8H PRN PRN NAUSEA OR VOMITING ( Reported) Oxycodone/Acetaminophen (Percocet 5-325 mg) 1 Tab Tab 1 TAB PO Q6H PRN PRN PAIN (Reported) Allergies Coded Allergies: Metoclopramide (Verified Adverse Reaction, Intermediate, AKATHISIA/ AGITATION, 08/29/16) Irene Tom Feb 02, 2017 20:12
--- NOTE | 2017-02-02 20:14 | DS.PDOC ---
[facility] Discharge Summary Discharge Summary DATE OF ADMISSION: Feb 02, 2017 at 00:31 DATE OF DISCHARGE: Feb 02, 2017 at 16:15 HISTORY OF THE PRESENT ILLNESS: At patient and mother's request, patient is being discharged today after less than 24-hour inpatient stay. Patient is a 21- year-old male, who was seen on 01/31/17 in the emergency room for anxiety, 02/01/17 for symptoms of depression, and then again on 02/02/17 for symptoms of anxiety and depression, patient indicates symptoms of anxiety and depression are secondary to chronic gastrointestinal condition. Per ER report, patient left ER and returned stating, "I couldn't do it; I got home and my anxiety was too overwhelming. I should've stayed here this morning." Patient also communicated to ER at that time that he has an outpatient behavioral health appointment scheduled for next week and indicated he did not feel he was able to wait another week to see a mental health professional and requested admission to [facility]. Patient indicates symptoms began 7 months ago and since that time he has been "in and out of the hospital all the time for my stomach issues." Patient reports current anxiety level of 6/10, depression 5/10, denies suicidal and homicidal ideation, denies audiovisual hallucinations, denies urge to engage in self-injurious behavior. Patient indicates he has never been suicidal and he has never engaged in self-injurious behavior. Patient reports ongoing physical illness which she says started 1-1/2 years ago and since that time has lost 60 pounds due to vomiting daily and reduced ability to eat due to "burning" discomfort. Patient has history of abdominal pain, cyclical vomiting, nausea, poor appetite, headaches and chronic diarrhea. 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 Patient denies history of discomfort in social settings, denies panic symptoms, denies impulse control or compulsive behavior challenges, denies history of aggression or unsanctioned violence, reports to punching his truck 1 last week out of frustration. Patient denies history of reexperiencing, avoidance, or hypervigilance. Patient denies history of mood lability, hypomania or anjelica symptoms. Patient states he has a healthy appetite, has experienced notable weight loss, states he has "passed out a few times because I get so drained from vomiting." Patient indicates indicates he does not sleep well due to stomach pain, averages one hour per night and adds he is able to nap occasionally. PAST PSYCHIATRIC HISTORY: Prior Psychiatric Disorder: Denies. Outpatient Treatment: Has initial appointment scheduled at [facility] next week. Suicidal/Self injurious: Denies. Psychotropic Medication History: Currently being prescribed by PCM: Paxil 20 mg , amitriptyline 10 mg, and Ativan 1 mg PRN anxiety/agitation. MEDICAL/SURGICAL HISTORY: Intractable vomiting, cyclical vomiting syndrome, GERD , intractable abdominal migraine, chronic abdominal pain, celiac disease, IBS, blood in urine, states has been evaluated and "might of passed kidney stones," hemorrhoids and esophageal ulcer secondary to vomiting. Right acetabulum fracture 2009. Patient denies history of head injury or seizure 2015 EGD/colonoscopy normal with random biopsies of the esophagus/stomach/ duodenum. Mildly increased lymphocytes but preserved architecture. Labs on admission indicate low HCT and anion gap 12/11/16 EKG sinus rhythm 74 bpm similar 11/18/16 UDS on admission positive for cannabinoids and opiates FAMILY PSYCHIATRIC HISTORY: Patient denies SOCIAL HISTORY: Early Relations/development: Born and raised in [facility], parents age 17 and has contact with both parents, indicates family is supportive Sibling order: Has one older sister age 24. Paternal relationships: Describes as positive and supportive. Education: High school graduate, college 1.5 years in business administration. 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 Martial: Single, never , no children. Economic: Moved out of mother's home 2 months ago, indicates he plans to move back in due to being too physically ill to work Supports: Indicates family is supportive, speaks with parents daily. Abuse/trauma: Denies history. SUBSTANCE ABUSE HISTORY: Patient states he smokes marijuana daily to address pain and appetite challenges, consumes alcohol 1 time per week, 7-9 beers per episode LEGAL HISTORY: Patient denies TREATMENT PROGRESS ON UNIT: Patient and mother have requested discharge today after less than 24 hour stay on inpatient mental health unit. Patient indicates he feels his symptoms of anxiety and depression are worsening due to stress of being in inpatient environment and not eating due to stomach pain. Patient has been pleasant and cooperative and in behavioral control with no indication of irritability, agitation, aggression or mood lability observed. Clinical consultation completed and patient's mother is present at time of discharge assessment, denies having concerns pertaining to patient's discharge, verifies that patient has never been a safety risk to himself or others, and is in agreement with patient's desire to discharge to home with mother. Patient's mother notes that someone will be with patient at all times and that patient has a very strong familial support system, adds the family will be leaving for family vacation next week and she believes this will be positive experience and source of relaxation for patient. Patient has appointment with primary care provider tomorrow morning who is currently prescribing psychotropics and will address any medication concerns at that time. Patient also indicates he is currently receiving case management services and has initial psychotherapy appointment at [facility] next . Patient denies symptoms of anxiety and depression other than related to chronic gastrointestinal condition, denies audiovisual hallucinations, and denies urge to engage in self-injurious behavior. Patient denies suicidal and homicidal ideation and is able to effectively engage in the safety planning process, verbalizes concrete strategies for mitigating symptoms of anxiety and depression should they become unmanageable. Patient is requesting discharge to home today with mother, verbalizes understanding of and agreement with discharge plan. MENTAL STATUS EXAMINATION ON DISCHARGE: General appearance: Patient is a 21-year-old male who presents with adequate personal hygiene, dressed in hospital clothing, makes good eye contact, is pleasant and cooperative, ambulates with steady gait, of thin stature, and appears stated age. Speech: Of normal rate, rhythm, volume, coherent, spontaneous Thought processes: Clear, goal-directed, linear. Thought content: Logical and coherent. Abstract reasoning and computation: Adequate. Description of associations: Intact. Description of abnormal or psychotic thoughts: Displays no delusional thinking, denies audiovisual hallucinations, denies obsessions or compulsions, does not appear to be responding to internal stimuli, no bizarre or paranoid ideation noted, no preoccupation with violence. Judgment: Adequate Insight: Fair. Orientation: Person, place, time, situation. Recent and remote memory: Intact. Attention span and concentration: Adequate. Fund of knowledge: Adequate. Mood: "I still have some anxiety and depression, but it's worse being here and it's because of my stomach. I don't have mental illness and I don't need to be here." Patient appears moderately anxious and mildly depressed, no mood lability noted Affect: Constricted, appropriate and congruent with mood. CONDITION ON DISCHARGE: Stable, no suicidal or homicidal ideation DIAGNOSES ON DISCHARGE: Unspecified anxiety disorder, rule out dara, rule out disorder due to general medical condition MEDICATIONS ON DISCHARGE: See below, no medication changes made and no prescriptions given at time of discharge FOLLOW UP PLAN: Consult with outpatient provider regarding continuation of medications Patient to discharge to home with mother today and to be transported by mother Patient to participate in outpatient behavioral health psychotherapy and medication management, and case management services through [facility] Patient to follow-up with PCM within 5-7 days of discharge, indicates he has appointment scheduled for tomorrow at 10:30 AM TIME SPENT COORDINATING CARE: 45 minutes Vital Signs/I&Os Vital Signs Date Time Temp Pulse Resp B/P Pulse Ox O2 Delivery O2 Flow Rate FiO2 02/02/17 15:59 16 02/02/17 01:00 97.8 60 137/72 100 Room Air Laboratory Data Labs 24H Laboratory Tests 2 02/01/17 22:50: Acetaminophen Level < 2.0L, Aspartate Amino Transf (AST/SGOT) 16, Alanine Aminotransferase (ALT/SGPT) 26, Alkaline Phosphatase 86, Total Bilirubin 0.6, Direct Bilirubin 0.2, Albumin 3.9, Albumin/Globulin Ratio 1.30, Anion Gap 6L, Calcium Level 8.9, Ethyl Alcohol Level < 0.003, Glomerular Filtration Rate > 60.0, Salicylates Level < 1.7L, Thyroid Stimulating Hormone (TSH) 2.920, Total Protein 6.9, Urine Amphetamines Screen NEGATIVE, Urine Benzodiazepines Screen NEGATIVE, Urine Opiates Screen POSITIVEH, Urine Barbiturates Screen NEGATIVE, Urine Cannabinoids Screen POSITIVEH, Urine Cocaine Metabolite Screen NEGATIVE, Urine Methadone Screen NEGATIVE, Urine Phencyclidine Screen NEGATIVE CBC/BMP Laboratory Tests 02/01/17 22:50 Red Blood Count 4.58, Mean Corpuscular Volume 89.7, Mean Corpuscular Hemoglobin 30.7, Mean Corpuscular Hemoglobin Concent 34.2, Red Cell Distribution Width 12.2 Medications Scheduled Amitriptyline HCl (Amitriptyline HCl) 10 Mg Tab 10 MG PO QHS pain/sleep ( Reported) Dicyclomine HCl (Dicyclomine HCl) 10 Mg Cap 10 MG PO TID Stomach cramp (Reported ) Pantoprazole Sodium (Pantoprazole Sodium) 40 Mg Tab 40 MG PO BID GERD (Reported ) Paroxetine Hydrochloride (Paxil) 20 Mg Tab 20 MG PO QHS Anxiety/Depression ( Reported) Sucralfate (Sucralfate) 1 Gm/10 Ml Yoselin 1 GM PO ACHS NAUSEA (Reported) Scheduled PRN Lorazepam (Ativan) 1 Mg Tab 1 MG PO Q6H PRN PRN ANXIETY/AGITATION (Reported) Ondansetron (Ondansetron Odt) 4 Mg Tab 4 MG PO Q8H PRN PRN NAUSEA OR VOMITING ( Reported) Oxycodone/Acetaminophen (Percocet 5-325 mg) 1 Tab Tab 1 TAB PO Q6H PRN PRN PAIN (Reported) Allergies Coded Allergies: Metoclopramide (Verified Adverse Reaction, Intermediate, AKATHISIA/ AGITATION, 08/29/16) Irene Tom Feb 02, 2017 20:14
[2017-02-02] MEDS ORDERED: AMITRIPTYLINE 10 MG TAB PO SCH (21:00)
[2017-02-02] MEDS ORDERED: PARoxetine 20 MG TAB PO SCH (21:00)
== END 2017-02-02 16:15 | disposition home or self-care (01) | DRG 756 ==
LOC: M ED 19:48 → M ED INP 02-02 00:31 → M PSY 02-02 01:00
PROVIDERS: ADMIT Psychiatry & Neurology Child & Adolescent Psychiatry; ATTEND Psychiatry & Neurology Psychiatry
DX: F41.9 Anxiety disorder, unspecified (principal); K21.9 Gastro-esophageal reflux disease without esophagitis; G43.A1 Cyclical vomiting, in migraine, intractable; Z79.899 Other long term (current) drug therapy; Z88.8 Allergy status to other drugs, medicaments and biological substances; F12.10 Cannabis abuse, uncomplicated

== ENCOUNTER 2017-04-03 06:10 | Emergency (ER) | payer OTHER, SELFPAY ==
[~2017-04-03] VITALS: Ht 180.3 cm; Wt 74.8 kg
[~2017-04-03 06:10] MED LIST changes: +AMIT10TA PO; +DICY10CA13 PO; +PROM25TA PO; +SUCR1SUS PO
[2017-04-03] MEDS ORDERED: MEDICAL MARIJUANA (06:19)
[2017-04-03] MEDS ORDERED: NS 1,000 ML IV ONE (07:00)
[2017-04-03] MEDS ORDERED: PROMETHAZINE INJ 25 MG/ML VIAL (J2550) IV ONE (07:00)
[2017-04-03] MEDS ORDERED: PANTOPRAZOLE 40MG INJ (PROTONIX) (C9113) IV ONE (07:00)
[2017-04-03 07:57] LABS: BASO % 0.3 % (0.0-1.0); EOS # 0.2 K/mm3 (0.0-0.50); EOS % 3.9 % (0.0-3.0); LARGE UNSTAINED CELL # 0.1 K/mm3 (0.0-0.4); LARGE UNSTAINED CELL % 1.6 % (0.0-4.0); LYMPH % 17.1 % (24.0-44.0); MEAN CORPUSCULAR HGB CONC 35.6 g/dl (32.0-36.5); MEAN CORPUSCULAR VOLUME 89.8 fl (80.0-96.0); MONO # 0.4 K/mm3 (0.0-0.8); MONO % 6.2 % (0.0-5.0); NEUTROPHILS # 3.9 K/mm3 (1.8-7.7); NEUTROPHILS % 70.9 % (36.0-66.0); PLATELET COUNT, AUTOMATED 310 k/mm3 (150-450); RED CELL DISTRIBUTION WIDTH 12.6 % (11.5-14.5); WHITE BLOOD COUNT 5.6 K/mm3 (4.0-10.0)
[2017-04-03] MEDS ORDERED: GI COCKTAIL 50ML BTL(HYOSCYAMINE/MAALOX/LIDOCAINE VISCOUS)(1:3:1) PO ONE (08:15)
--- NOTE | 2017-04-03 08:18 | REP ---
Acute abdominal series: Three views. History: Abdominal pain. Comparison chest x-ray November 18, 2016. Findings: Upright chest radiograph is normal. The lungs are well inflated and clear. There is no evidence of infiltrate or free subdiaphragmatic air. Heart is not enlarged. Pulmonary vasculature is not increased. No bony abnormality is seen. Supine and erect views of the abdomen demonstrate air and a small quantity of fluid in a nondistended colon. No small or large bowel dilation is seen. No small bowel air-fluid levels are appreciated. Psoas margins and flank stripes are intact. No mass, organomegaly, or pathologic calcification is seen. Impression: Unremarkable abdominal series. Signed by Isacc Blood MD 04/03/2017 12:56 P
[2017-04-03 08:19] LABS: ALBUMIN 4.2 GM/DL (3.2-5.2); ALBUMIN/GLOBULIN RATIO 1.17 (1.00-1.93); ALKALINE PHOSPHATASE 92 U/L (45-117); ALT/SGPT 33 U/L (12-78); AMYLASE 45 U/L (25-115); ANION GAP 7 MEQ/L (8-16); AST/SGOT 23 U/L (15-37); BILIRUBIN,DIRECT 0.1 MG/DL (0.0-0.2); BILIRUBIN,TOTAL 0.9 MG/DL (0.2-1.0); BLOOD UREA NITROGEN 12 MG/DL (7-18); CALCIUM LEVEL 8.9 MG/DL (8.5-10.1); CARBON DIOXIDE LEVEL 27 MEQ/L (21-32); CHLORIDE LEVEL 105 MEQ/L (98-107); GLOMERULAR FILTRATION RATE > 60.0 (>60); GLUCOSE, FASTING 88 MG/DL (70-105); SODIUM LEVEL 139 MEQ/L (136-145); TOTAL PROTEIN 7.8 GM/DL (6.4-8.2)
[2017-04-03 09:07] VITALS: BP 133/60
== END 2017-04-03 09:42 | disposition home or self-care (01) ==
LOC: M ED 07:07
DX: G43.A0 Cyclical vomiting, in migraine, not intractable (principal); Z87.828 Personal history of other (healed) physical injury and trauma; K52.9 Noninfective gastroenteritis and colitis, unspecified; K25.9 Gastric ulcer, unspecified as acute or chronic, without hemorrhage or perforation; Z87.442 Personal history of urinary calculi; M54.5 Low back pain; F41.9 Anxiety disorder, unspecified; F32.9 Major depressive disorder, single episode, unspecified; Z79.899 Other long term (current) drug therapy; Z88.8 Allergy status to other drugs, medicaments and biological substances

== ENCOUNTER 2017-08-01 22:13 | Emergency (ER) | payer OTHER ==
[~2017-08-01] VITALS: Ht 180.3 cm; Wt 75.0 kg
[~2017-08-01 22:13] MED LIST changes: -CARA1TAB2 PO; +CARA1TAB6 PO; +MEDICAL MARIJUANA; -ONDA1TAB15 PO; +ONDA4TAB5 PO; +PAXI20TA29 PO; -PAXI20TA3 PO; +PERC5TAB12 PO; -PERC5TAB6 PO; +PROM12.55 PO; -PROM125TA PO; +TOPI25TA10 PO; -TOPI25TA5 PO
[2017-08-01 22:56] LABS: MEAN CORPUSCULAR HEMOGLOBIN 31.3 pg (27.0-33.0); MEAN CORPUSCULAR HGB CONC 35.7 g/dl (32.0-36.5); MEAN CORPUSCULAR VOLUME 87.8 fl (80.0-96.0); RED CELL DISTRIBUTION WIDTH 12.3 % (11.5-14.5); WHITE BLOOD COUNT 9.3 10^3/uL (4.0-10.0)
[2017-08-01 23:13] LABS: ANION GAP 9 MEQ/L (8-16); BLOOD UREA NITROGEN 10 MG/DL (7-18); CARBON DIOXIDE LEVEL 28 MEQ/L (21-32); CHLORIDE LEVEL 105 MEQ/L (98-107); CREATININE FOR GFR 0.77 MG/DL (0.70-1.30); GLOMERULAR FILTRATION RATE > 60.0 (>60); GLUCOSE, FASTING 99 MG/DL (70-105); POTASSIUM SERUM 3.4 MEQ/L (3.5-5.1); SODIUM LEVEL 142 MEQ/L (136-145)
[2017-08-01] MEDS ORDERED: MORPHINE 4 MG/ML 1ML SYRINGE IV PRN (23:45)
[2017-08-01] MEDS ORDERED: ONDANSETRON 4MG/2ML VIAL (J2405) IV ONE (23:45)
[2017-08-01] MEDS ORDERED: NS 1,000 ML IV ONE (23:45)
[2017-08-01] MEDS ORDERED: ISOVUE-370 76% 100ML VIAL (Q9967) As Ordered ONE (23:53)
[2017-08-01 23:54] VITALS: BP 119/63
[2017-08-01 23:55] LABS: ALBUMIN 4.3 GM/DL (3.2-5.2); ALBUMIN/GLOBULIN RATIO 1.43 (1.00-1.93); ALKALINE PHOSPHATASE 77 U/L (45-117); ALT/SGPT 37 U/L (12-78); AST/SGOT 28 U/L (15-37); BILIRUBIN,DIRECT 0.1 MG/DL (0.0-0.2); BILIRUBIN,TOTAL 0.5 MG/DL (0.2-1.0); TOTAL PROTEIN 7.3 GM/DL (6.4-8.2)
[2017-08-01 23:56] LABS: INR 1.08
--- NOTE | 2017-08-02 00:40 | REPUSA ---
CLINICAL HISTORY: Chest pain. TECHNIQUE: Multiple axial CT images were obtained through the thorax with IV contrast material. COMMENTS: Comparison to prior exam on 08/22/2016. There is no evidence of pleural or parenchymal mass. There are no pleural effusions. There is no evid ence of hilar or mediastinal lymphadenopathy. The heart and great vessels are within normal limits. The visualized portions of the liver are of uniform attenuation without mass or defect. There is no i ntra or extrahepatic biliary ductal dilatation. The spleen is unremarkable. The visualized pancreas i s of normal contour and attenuation characteristics. There is no evidence of adrenal mass. The visual ized portions of the kidneys present no abnormalities. The bony structures are free of lytic or blastic lesions. Post contrast images demonstrate no evidence for abnormal enhancement. IMPRESSION: No evidence of acute thoracic pathology. Complete resolution of pneumomediastinum. No aortic dissection. Thank you for your kind referral of this patient.
--- NOTE | 2017-08-02 00:50 | REPUSA ---
CLINICAL HISTORY: Abdominal pain. TECHNIQUE: Multiple axial, sagittal and coronal CT images were obtained through the abdomen and pelvi s after administration of intravenous contrast material. COMMENTS: Comparison to prior exam on 12/04/2016. Diffuse thickening of the proximal small bowels. The liver is of uniform attenuation without mass or defect. There is no intra or extrahepatic biliary ductal dilatation. The spleen is normal. The gallbladder is within normal limits. The pancreas is of normal contour and attenuation characteristics. There is no evidence of adrenal mass. Both kidneys demonstrate prompt and equal nephrograms. The kidneys are normal in size, shape and conf iguration. There is no evidence of renal or ureteral mass. No renal or ureteral calculi are identifie d. There is no hydroureter or hydronephrosis. No evidence for appendicitis. No evidence for small or large bowel obstruction. There is no evidence of abdominal ascites or lymphadenopathy. There is no evidence of intrinsic or extrinsic bladder mass. There is no pelvic ascites or lymphadeno brian. Images of the lung bases show no evidence of pleural or parenchymal mass. There are no pleural effusi ons. The bony structures are free of lytic or blastic lesions. Multilevel degenerative changes are seen in volving the thoracolumbar spine. Scattered calcifications are seen involving the aorta and major bran ches compatible with atherosclerosis. IMPRESSION: Diffusely thickened proximal small bowel, possibly mild enteritis. Thank you for your kind referral of this patient.
[2017-08-02 03:08] LABS: BASO % 0.2 % (0.0-1.0); EOS # 0.1 10^3/uL (0.0-0.50); EOS % 1.1 % (0.0-3.0); IMMATURE GRANULOCYTE % 0.2 % (0-0); LYMPH # 1.3 10^3/uL (1.5-6.5); LYMPH % 15.1 % (24.0-44.0); MEAN CORPUSCULAR HEMOGLOBIN 31.4 pg (27.0-33.0); MEAN CORPUSCULAR HGB CONC 35.5 g/dl (32.0-36.5); MEAN CORPUSCULAR VOLUME 88.6 fl (80.0-96.0); MONO # 0.6 10^3/uL (0.0-0.8); MONO % 6.2 % (0.0-5.0); NEUTROPHILS # 6.9 10^3/uL (1.8-7.7); NEUTROPHILS % 77.2 % (36.0-66.0); PLATELET COUNT, AUTOMATED 284 10^3/uL (150-450); RED CELL DISTRIBUTION WIDTH 12.3 % (11.5-14.5); WHITE BLOOD COUNT 8.9 10^3/uL (4.0-10.0)
[2017-08-02] MEDS ORDERED: ONDA4TAB6 PO (04:31)
--- NOTE | 2017-08-02 06:33 | ECGEPIP ---
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
--- NOTE | 2017-08-02 07:55 | REP ---
PA and lateral chest: Comparison is six 03/18/2017. The lung redding are clear. The cardiac size is normal The jessica, mediastinum, and bony thorax are unremarkable. Impression: Negative PA and lateral chest. There is no interval change. Signed by Toi Landis MD 08/02/2017 07:46 A
== END 2017-08-02 04:40 | disposition home or self-care (01) ==
LOC: M ED 22:13 → EDBD 22:13 → M ED 08-02 04:40
DX: G89.29 Other chronic pain (principal); R10.9 Unspecified abdominal pain; K92.0 Hematemesis; Z79.899 Other long term (current) drug therapy; Z88.8 Allergy status to other drugs, medicaments and biological substances
CPT/HCPCS: 71020; 71260; 74177; 80048; 80076; 83690; 85025; 85027; 85610; 85730; 93000; 93041; 96374; 96375; 99284; J2405; Q9967

== ENCOUNTER 2017-08-23 19:00 | Emergency (ER) | payer OTHER ==
[~2017-08-23] VITALS: Ht 180.3 cm; Wt 77.3 kg
[2017-08-23 19:01] VITALS: BP 153/85
[2017-08-23] MEDS ORDERED: PHEN1SUP7 PO (19:18)
== END 2017-08-23 20:20 | disposition left against medical advice (07) ==
LOC: M ED 19:00
DX: R10.9 Unspecified abdominal pain (principal); Z53.21 Procedure and treatment not carried out due to patient leaving prior to being seen by health care provider

== ENCOUNTER 2018-10-26 06:27 | Emergency (ER) | payer OTHER ==
[~2018-10-26] VITALS: Ht 180.3 cm; Wt 72.7 kg
[~2018-10-26 06:27] MED LIST changes: +FLOM0.4C39 PO; -FLOM5CAP PO; +OXYC10TA3 PO; -OXYC1TAB16 PO; -PANT40TA2 PO; +PANT40TA3 PO; +PHEN1SUP7 PO; -PROM12.55 PO; +PROM12.56 PO; -PROM25TA PO; -PROM25TA PR; +PROM25TA12 PO; +PROM25TA12 PR; +ZOFR4TAB14 PO; -ZOFR4TAB3 PO
[2018-10-26] MEDS ORDERED: MORPHINE 2 MG/ML 1ML SYRINGE (J2270) IV ONE (06:45)
[2018-10-26] MEDS ORDERED: NS 1,000 ML IV ONE (06:45)
[2018-10-26] MEDS ORDERED: PROMETHAZINE INJ 25 MG/ML VIAL (J2550) IV ONE (06:45)
[2018-10-26 06:53] LABS: BASO % 0.2 % (0.0-1.0); EOS # 0.1 10^3/uL (0.0-0.50); EOS % 1.2 % (0.0-3.0); HEMATOCRIT 48.7 % (42.0-52.0); LYMPH # 1.5 10^3/uL (1.5-6.5); LYMPH % 14.4 % (24.0-44.0); MEAN CORPUSCULAR HEMOGLOBIN 30.8 pg (27.0-33.0); MEAN CORPUSCULAR HGB CONC 34.9 g/dl (32.0-36.5); MEAN CORPUSCULAR VOLUME 88.2 fl (80.0-96.0); MONO # 0.5 10^3/uL (0.0-0.8); MONO % 4.7 % (0.0-5.0); NEUTROPHILS # 8.3 10^3/uL (1.8-7.7); NEUTROPHILS % 79.1 % (36.0-66.0); PLATELET COUNT, AUTOMATED 317 10^3/uL (150-450); RED BLOOD COUNT 5.52 10^6/uL (4.30-6.10); WHITE BLOOD COUNT 10.4 10^3/uL (4.0-10.0)
[2018-10-26 07:23] LABS: ALBUMIN 4.4 GM/DL (3.2-5.2); ALT/SGPT 26 U/L (12-78); AMYLASE 63 U/L (25-115); BILIRUBIN,DIRECT 0.1 MG/DL (0.0-0.2); BILIRUBIN,TOTAL 0.4 MG/DL (0.2-1.0); BLOOD UREA NITROGEN 11 MG/DL (7-18); CALCIUM LEVEL 9.2 MG/DL (8.5-10.1); CARBON DIOXIDE LEVEL 28 MEQ/L (21-32); CHLORIDE LEVEL 105 MEQ/L (98-107); CREATININE FOR GFR 0.87 MG/DL (0.70-1.30); GLOMERULAR FILTRATION RATE > 60.0 (>60); GLUCOSE, FASTING 100 MG/DL (70-100); LIPASE 192 U/L (73-393); POTASSIUM SERUM 4.3 MEQ/L (3.5-5.1); SODIUM LEVEL 143 MEQ/L (136-145); TOTAL PROTEIN 7.7 GM/DL (6.4-8.2)
[2018-10-26] MEDS ORDERED: HYDROMORPHONE HCL 0.5 MG/ 0.5 ML SYRINGE (J1170 PER 1) IV ONE (07:30)
[2018-10-26] MEDS ORDERED: ISOVUE-370 76% 100ML VIAL (Q9967) As Ordered ONE (07:35)
[2018-10-26] MEDS ORDERED: NS 500 ML IV ONE (08:00)
[2018-10-26] MEDS ORDERED: CLON0.5T8 PO (08:13)
[2018-10-26] MEDS ORDERED: OMEP40CA2 PO (08:13)
[2018-10-26] MEDS ORDERED: EFFE37.5 PO (08:13)
[2018-10-26] MEDS ORDERED: ONDANSETRON 4MG/2ML VIAL (J2405) IV ONE (08:15)
[2018-10-26 08:25] VITALS: BP 130/64
--- NOTE | 2018-11-01 23:30 | REP ---
CLINICAL: Abdominal pain and intractable vomiting. Technique: Axial contrast enhanced images from the lung bases to the pubic symphysis with coronal and sagittal re-formations using 100 ml Isovue 370 intravenous contrast material. Comparison: 08/01/2017. Findings: Lung bases are clear. Liver, spleen, pancreas, gallbladder, bilateral adrenal glands and kidneys are normal. The enteric system is without obstruction or acute inflammatory process. Pelvis demonstrates normal bladder and age appropriate prostate/seminal vesicles. No ascites. No free air. No adenopathy. Abdominal aorta and vasculature normal. Surrounding musculoskeletal structures appear intact. Impression: Normal contrast enhanced CT of the abdomen and pelvis. No acute abdominopelvic pathology appreciated. Electronically Signed by Joe Yañez MD 11/01/2018 11:22 P
== END 2018-10-26 08:29 | disposition home or self-care (01) ==
LOC: M ED 06:27
DX: G89.29 Other chronic pain (principal); R10.9 Unspecified abdominal pain; G43.A0 Cyclical vomiting, in migraine, not intractable; J45.909 Unspecified asthma, uncomplicated; I73.9 Peripheral vascular disease, unspecified; K21.9 Gastro-esophageal reflux disease without esophagitis; F33.9 Major depressive disorder, recurrent, unspecified; F41.9 Anxiety disorder, unspecified; Z87.440 Personal history of urinary (tract) infections; Z79.899 Other long term (current) drug therapy; Z88.8 Allergy status to other drugs, medicaments and biological substances
CPT/HCPCS: 74177; 80048; 80076; 82150; 83690; 85025; 96361; 96374; 96375; 99284; J1170; J2270; J2405; Q9967

== ENCOUNTER 2019-02-02 00:14 | Emergency (ER) | payer OTHER ==
[~2019-02-02] VITALS: Ht 180.3 cm; Wt 75.0 kg
[~2019-02-02 00:14] MED LIST changes: +CLON0.5T8 PO; +EFFE37.5 PO; +SERT-141 PO; -SERT50TA PO; -ZONI50CA PO; +ZONI50CA11 PO
[2019-02-02] MEDS ORDERED: MORPHINE 10 MG/ML 1ML VIAL (J2270) IM ONE (02:30)
[2019-02-02 03:10] VITALS: BP 141/77
--- NOTE | 2019-02-02 08:29 | REP ---
Clinical: Trauma. Technique: AP, lateral, bilateral oblique views of the right and left hand. Findings: Right hand demonstrates angulated fracture of the fifth metacarpal bone with overlying soft tissue swelling (boxer's fracture). Remainder of the right hand appears normal. Left hand is unremarkable and without acute fracture or dislocation. Impression: There is replace a dilated mg vein as well as outlined largest of these is on the right fifth metacarpal bone fracture with volar angulation and overlying swelling. Electronically Signed by Joe Yañez MD 02/02/2019 08:19 A
== END 2019-02-02 03:12 | disposition home or self-care (01) ==
LOC: M ED 00:14
DX: S62.366A Nondisplaced fracture of neck of fifth metacarpal bone, right hand, initial encounter for closed fracture (principal); W22.09XA Striking against other stationary object, initial encounter; Y92.094 Garage of other non-institutional residence as the place of occurrence of the external cause; K21.9 Gastro-esophageal reflux disease without esophagitis; F41.9 Anxiety disorder, unspecified; F32.9 Major depressive disorder, single episode, unspecified; Z88.8 Allergy status to other drugs, medicaments and biological substances; Z79.899 Other long term (current) drug therapy
CPT/HCPCS: 29125; 73130; 96372; 99283; J2270

== ENCOUNTER → 2020-10-18 | Outpatient (CLI) | payer SELFPAY ==
[~2020-10-18] MED LIST changes: +CLON0.5T2 PO; -CLON0.5T8 PO; -LORA1TAB12 PO; +LORA1TAB4 PO; -OMEP40CA2 PO; +OMEP40CA97 PO; +ONDA-83 PO; -ONDA4TAB5 PO; +PANT40TA29 PO; -PANT40TA3 PO; +SUCR1ORA PO; -SUCR1SUS PO
== END ==
LOC: M LABSMTC 08:06
PROVIDERS: ATTEND Pediatrics
DX: Z20.828 Contact with and (suspected) exposure to other viral communicable diseases (principal)

== ENCOUNTER 2020-11-21 16:41 | Emergency (ER) | payer OTHER ==
[~2020-11-21] VITALS: Ht 180.3 cm; Wt 79.5 kg
[~2020-11-21 16:41] MED LIST changes: -AMIT25TA PO; +AMIT25TA17 PO
[2020-11-21] MEDS ORDERED: ACETAMINOPHEN 325 MG TAB PO ONE (18:30)
[2020-11-21] MEDS ORDERED: MORPHINE 2 MG/ML 1ML VIAL (J2270) IV ONE ×2 (18:45→20:00)
[2020-11-21] MEDS ORDERED: NS 1,000 ML IV ONE (18:45)
[2020-11-21] MEDS ORDERED: PERC5TAB12 PO (19:57)
--- NOTE | 2020-11-21 20:16 | REPVR ---
PROCEDURE INFORMATION: Exam: XR Right Tibia and Fibula Exam date and time: 11/21/2020 5:13 PM Age: 25 years old Clinical indication: Pain; Lower leg; Right; Additional info: Fall TECHNIQUE: Imaging protocol: XR Right tibia and fibula. Views: 2 views. COMPARISON: No relevant prior studies available. FINDINGS: Bones/joints: Normal. Soft tissues: Normal. IMPRESSION: No acute findings. Electronically signed by: José Miguel Eller On 11/21/2020 20:16:25 PM
--- NOTE | 2020-11-21 20:18 | REPVR ---
PROCEDURE INFORMATION: Exam: XR Right Ankle Exam date and time: 11/21/2020 5:13 PM Age: 25 years old Clinical indication: Pain; Ankle; Right; Additional info: Pain and swelling after fall TECHNIQUE: Imaging protocol: XR Right ankle. Views: 3 or more views. COMPARISON: CR FOOT COMPLETE 06/17/2015 10:52 AM FINDINGS: Bones/joints: Fractures of the lateral and medial malleolus. Ankle mortise appears intact. Soft tissues: Diffuse soft tissue swelling demonstrated at the ankle. IMPRESSION: 1. Fractures of the lateral and medial malleolus. 2. Diffuse soft tissue swelling demonstrated at the ankle. Electronically signed by: José Miguel Eller On 11/21/2020 20:17:31 PM
[2020-11-21] MEDS ORDERED: OXYCODONE/APAP 5MG/325MG(BULK FOR ED) 1 TABLET PO ONE (20:45)
[2020-11-21 21:14] VITALS: BP 145/71
== END 2020-11-21 21:19 | disposition home or self-care (01) ==
LOC: M ED 16:41
DX: S82.64XA Nondisplaced fracture of lateral malleolus of right fibula, initial encounter for closed fracture (principal); S82.54XA Nondisplaced fracture of medial malleolus of right tibia, initial encounter for closed fracture; X50.0XXA Overexertion from strenuous movement or load, initial encounter; Y92.89 Other specified places as the place of occurrence of the external cause; Y93.29 Activity, other involving ice and snow; Y99.9 Unspecified external cause status; G89.29 Other chronic pain; M54.5 Low back pain; K21.9 Gastro-esophageal reflux disease without esophagitis; R51.9 Headache, unspecified; Z88.8 Allergy status to other drugs, medicaments and biological substances
CPT/HCPCS: 73590; 73610; 96361; 96374; 96376; 99284; J2270

== ENCOUNTER → 2020-12-10 | Outpatient (CLI) | payer SELFPAY | LOC: M LABSMTC 13:54 | PROVIDERS: ATTEND Pediatrics | DX: Z20.822 Contact with and (suspected) exposure to COVID-19 (principal) ==

== ENCOUNTER 2024-01-17 07:00 | Emergency (ER) | payer BC, OTHER ==
[~2024-01-17] VITALS: Ht 180.3 cm; Wt 98.0 kg
[~2024-01-17 07:00] MED LIST changes: -AMIT10TA PO; +AMIT10TA7 PO; -AMIT25TA17 PO; +AMIT25TA19 PO; +DICY-61 PO; -DICY10CA13 PO; -DICY20TA11 PO; +DICY20TA20 PO; -EFFE37.5 PO; +EFFE37.52 PO; +LORA1TAB23 PO; -LORA1TAB4 PO; -MAXA10TA15 PO; +OMEP40CA4 PO; -OMEP40CA97 PO; -PAXI20TA29 PO; +PAXI20TA30 PO; +RIZA10TA66 PO
[2024-01-17 07:48] LABS: BASO % 0.4 % (0.0-1.0); EOS % 0.2 % (0.0-3.0); HEMATOCRIT 48.5 % (42.0-52.0); LYMPH # 0.8 10^3/uL (1.5-5.0); LYMPH % 9.4 % (24.0-44.0); MEAN CORPUSCULAR HEMOGLOBIN 31.6 pg (27.0-33.0); MEAN CORPUSCULAR HGB CONC 35.1 g/dl (32.0-36.5); MEAN CORPUSCULAR VOLUME 90.1 fl (80.0-96.0); MONO # 0.5 10^3/uL (0.0-0.8); MONO % 5.9 % (2.0-8.0); NEUTROPHILS # 7.5 10^3/uL (1.5-8.5); PLATELET COUNT, AUTOMATED 370 10^3/uL (150-450); RED BLOOD COUNT 5.38 10^6/uL (4.30-6.10); WHITE BLOOD COUNT 8.9 10^3/uL (4.0-10.0)
[2024-01-17 08:04] LABS: LIPASE 42 U/L (12-53)
[2024-01-17 08:06] LABS: ALBUMIN 4.7 G/DL (3.2-5.2); ALKALINE PHOSPHATASE 97 U/L (46-116); ALT/SGPT 30 U/L (7.0-40); AST/SGOT 15 U/L (<34); BILIRUBIN,DIRECT 0.2 MG/DL (<0.4); BILIRUBIN,TOTAL 0.7 MG/DL (0.3-1.2); BLOOD UREA NITROGEN 15 MG/DL (9-23); CALCIUM LEVEL 9.7 MG/DL (8.5-10.1); CARBON DIOXIDE LEVEL 28 MMOL/L (20-31); CHLORIDE LEVEL 107 MMOL/L (98-107); CREATININE FOR GFR 0.85 MG/DL (0.70-1.30); GLOMERULAR FILTRATION RATE > 60.0 (>60); GLUCOSE, FASTING 118 MG/DL (60-100); POTASSIUM SERUM 4.5 MMOL/L (3.5-5.1); SODIUM LEVEL 140 MMOL/L (136-145); TOTAL PROTEIN 7.7 G/DL (5.7-8.2)
[2024-01-17 08:38] LABS: Trichomonas vaginalis (AMP) NOT DETECTED (NEGATIVE)
[2024-01-17 09:01] LABS: GC DNA AMPLIFICATION NEGATIVE (NEGATIVE)
[2024-01-17] MEDS: PANTOPRAZOLE 40MG VIAL IV ONE (11:36)
[2024-01-17] MEDS: KETOROLAC 30 MG/ML 1ML VIAL IV ONE (11:36)
[2024-01-17] MEDS: NS 1,000 ML IV ONE (11:40)
[2024-01-17 12:04] VITALS: BP 146/85; TEMP 97.3; O2SAT 100
[2024-01-17] MEDS ORDERED: PEPC1TAB5 PO (12:15)
[2024-01-17] MEDS ORDERED: ONDA-83 PO (12:15)
[2024-01-17] MEDS: ONDANSETRON 4MG 2ML VIAL IV ONE (12:49)
== END 2024-01-17 13:22 | disposition home or self-care (01) ==
LOC: M ED 07:00
DX: A08.4 Viral intestinal infection, unspecified (principal); K25.9 Gastric ulcer, unspecified as acute or chronic, without hemorrhage or perforation; Z79.1 Long term (current) use of non-steroidal anti-inflammatories (NSAID); Z79.83 Long term (current) use of bisphosphonates; Z88.8 Allergy status to other drugs, medicaments and biological substances
CPT/HCPCS: 74176; 76870; 80048; 80076; 81001; 83690; 85025; 87661; 87810; 87850; 93976; 96374; 96375; 99284; C9113; J1885; J2405